=== PATIENT | male | born 1955 | race Caucasian/White ===

== ENCOUNTER 2016-06-06 18:18 | Inpatient (IN) | payer OTHER ==
[2016-06-06 19:09] VITALS: BMI 28.4
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
[2016-06-06] MEDS ORDERED: MAGNESIUM HYDROX 2400MG/30ML ORAL SUSPENSION 30 ML CUP PO PRN (19:39)
[2016-06-06] MEDS ORDERED: METHADONE HCL 10 MG TABLET (FOR DETOX USE ONLY) PO ONE ×2 (19:39→23:00)
[2016-06-06] MEDS ORDERED: MAG HYDROX/AL HYDROX/SIMETH 30 ML UNIT-DOSE CUP PO PRN (19:39)
[2016-06-06] MEDS ORDERED: ACETAMINOPHEN 325 MG TABLET (FP) PO PRN (19:39)
[2016-06-06] MEDS ORDERED: LOPERAMIDE HCL 2 MG CAPSULE PO PRN (19:39)
[2016-06-06] MEDS ORDERED: MENTHOL/PHENOL 1 EACH UD MM PRN (19:39)
[2016-06-06] MEDS ORDERED: IBUPROFEN 400 MG TABLET (FP) PO PRN (19:39)
[2016-06-06] MEDS ORDERED: chlordiazePOXIDE HCL 25 MG CAPSULE PO PRN (19:39)
[2016-06-06] MEDS ORDERED: chlordiazePOXIDE HCL 25 MG CAPSULE PO ONE (19:39)
[2016-06-06] MEDS ORDERED: MAGNESIUM CITRATE 300 ML BOTTLE PO PRN (19:39)
[2016-06-06] MEDS ORDERED: guaiFENesin/D-METHORPHAN HB 10 ML UNIT-DOSE CUPS PO PRN (19:39)
[2016-06-06] MEDS: RANITIDINE HCL 150 MG TABLET (FP) PO SCH (21:34)
[2016-06-06] MEDS: THIAMINE HCL 100 MG TABLET (FP) PO SCH (21:39)
[2016-06-06] MEDS: chlordiazePOXIDE HCL 25 MG CAPSULE PO SCH (22:45)
[2016-06-07] MEDS: chlordiazePOXIDE HCL 25 MG CAPSULE PO SCH ×4 (05:45→22:18)
--- NOTE | 2016-06-07 09:44 | EKG ---
Test Reason : Blood Pressure : / mmHG Vent. Rate : 086 BPM Atrial Rate : 086 BPM P-R Int : 124 ms QRS Dur : 088 ms QT Int : 408 ms P-R-T Axes : 050 061 054 degrees QTc Int : 488 ms NORMAL SINUS RHYTHM PROLONGED QT ABNORMAL ECG NO PREVIOUS ECGS AVAILABLE Confirmed by ASHLEY SANFORD MD ([id number]) on 06/07/2016 9:44:10 AM Referred By: Confirmed By:ASHLEY SANFORD MD
[2016-06-07] MEDS ORDERED: METHADONE HCL 10 MG TABLET (FOR DETOX USE ONLY) PO SCH (10:00)
[2016-06-07] MEDS: ASPIRIN 81 MG CHEWABLE TABLETS PO SCH (10:13)
[2016-06-07] MEDS: RANITIDINE HCL 150 MG TABLET (FP) PO SCH ×2 (10:13→22:18)
[2016-06-07] MEDS: PRENATAL VITAMINS W/ FOLIC ACID TABLET (FP) PO SCH (10:14)
[2016-06-07 10:18] LABS: MCH 30.6 pg (25.7-33.7); MCHC 33.1 g/dl (32.0-35.9); MEAN CELL VOLUME 92.5 fl (80-96); MEAN PLT VOLUME 8.5 fl (7.5-11.1); PLATELET COUNT 222 K/MM3 (134-434); RDW 14.4 % (11.9-15.9); WHITE BLOOD COUNT 6.4 K/mm3 (4.0-10.0)
[2016-06-07 10:37] LABS: ALBUMIN 3.2 g/dl (3.4-5.0); ANION GAP 11 (8-16); CALCIUM 8.4 mg/dL (8.5-10.1); CO2 27 mmol/L (21-32); CREATININE 0.7 mg/dL (0.7-1.3); GLUCOSE,RANDOM 99 mg/dL (74-106); SGOT/AST 39 U/L (15-37); SGPT/ALT 21 U/L (12-78)
[2016-06-07 10:39] LABS: ALK PHOS 78 U/L (45-117); BILIRUBIN,TOTAL 0.4 mg/dL (0.2-1.0); TOT PROT 6.3 g/dl (6.4-8.2)
[2016-06-07 12:27] LABS: HIV 1 & 2 AB NEGATIVE; HIV 1 AGp24 NEGATIVE
--- NOTE | 2016-06-07 13:18 | PN ---
S CIWA - CIWA Score Nausea/Vomitin-Mild Nausea/No Vomiting Muscle Tremors: 4-Moderate,w/Arms Extend Anxiety: 4-Mod. Anxious/Guarded Agitation: 4-Moderately Restless Paroxysmal Sweats: No Perspiration Orientation: 0-Oriented Tacttile Disturbances: 1-Very Mild Itch/Numbness Auditory Disturbances: 0-None Visual Disturbances: 0-None Headache: 2-Mild CIWA-Ar Total Score: 16 BHS COWS - Scale Resting Pulse: 1= [place] 81-100 Sweatin= Chills/Flushing Restless Observation: 3= Extraneous Movement Pupil Size: 0= Normal to Room Light Bone or Joint Aches: 2= Severe Diffuse Aches Runny Nose/ Eye Tearin= Runny Nose/Eyes GI Upset > 30mins: 2= Nausea/Diarrhea Tremor Observation of Outstretched Hands: 2= Slight Tremor Visible Yawning Observation: 0= None Anxiety or Irritability: 2=Irritable/Anxious Goose Flesh Skin: 0=Smooth Skin COWS Score: 15 S Progress Note (SOAP) Subjective: Nausea, sweating, anxious, interrupted sleep, tremor Objective: 06/07/16 13:19 Last Vital Signs Temp Pulse Resp BP Pulse Ox 96.9 F L 81 18 97/69 06/07/16 13:02 06/07/16 13:02 06/07/16 13:02 06/07/16 13:02 Laboratory Tests 06/07/16 06/07/16 06/07/16 07:20 07:20 07:20 WBC 6.4 RBC 4.23 Hgb 13.0 Hct 39.1 MCV 92.5 MCHC 33.1 RDW 14.4 Plt Count 222 MPV 8.5 Sodium 140 Potassium 3.9 Chloride 102 Carbon Dioxide 27 Anion Gap 11 BUN 15 Creatinine 0.7 D Creat Clearance w eGFR > 60 Random Glucose 99 Calcium 8.4 L Total Bilirubin 0.4 AST 39 H D ALT 21 Alkaline Phosphatase 78 D Total Protein 6.3 L Albumin 3.2 L RPR Titer Nonreactive HIV 1&2 Antibody Screen HIV P24 Antigen 06/07/16 07:20 WBC RBC Hgb Hct MCV MCHC RDW Plt Count MPV Sodium Potassium Chloride Carbon Dioxide Anion Gap BUN Creatinine Creat Clearance w eGFR Random Glucose Calcium Total Bilirubin AST ALT Alkaline Phosphatase Total Protein Albumin RPR Titer HIV 1&2 Antibody Screen Negative HIV P24 Antigen Negative Labs noted Assessment: 06/07/16 13:20 Withdrawal symptoms Plan: Continue detox
[2016-06-07] MEDS: THIAMINE HCL 100 MG TABLET (FP) PO SCH (22:17)
[2016-06-07 22:53] LABS: URINE APPEARANCE CLEAR; URINE BILIRUBIN NEGATIVE (NEGATIVE); URINE BLOOD NEGATIVE (NEGATIVE); URINE COLOR YELLOW; URINE GLUCOSE (UA) NEGATIVE (NEGATIVE); URINE KETONE NEGATIVE (NEGATIVE); URINE LEUK ESTERASE NEGATIVE (NEGATIVE); URINE NITRITE NEGATIVE (NEGATIVE); URINE PROTEIN NEGATIVE (NEGATIVE); URINE UROBILINOGEN NEGATIVE E.U./dl (0.2-1.0)
[2016-06-08] MEDS: chlordiazePOXIDE HCL 25 MG CAPSULE PO SCH ×3 (05:32→16:51)
--- NOTE | 2016-06-08 09:48 | PN ---
[facility] CIWA - CIWA Score Nausea/Vomitin Muscle Tremors: 3 Anxiety: 4-Mod. Anxious/Guarded Agitation: 4-Moderately Restless Paroxysmal Sweats: 3 Orientation: 0-Oriented Tacttile Disturbances: 1-Very Mild Itch/Numbness Auditory Disturbances: 0-None Visual Disturbances: 0-None Headache: 0-None Present CIWA-Ar Total Score: 17 BHS COWS - Scale Resting Pulse: 1= [place] 81-100 Sweatin=Flushed/Facial Moisture Restless Observation: 1= Difficult to Sit Still Pupil Size: 0= Normal to Room Light Bone or Joint Aches: 2= Severe Diffuse Aches Runny Nose/ Eye Tearin= Runny Nose/Eyes GI Upset > 30mins: 2= Nausea/Diarrhea Tremor Observation of Outstretched Hands: 2= Slight Tremor Visible Yawning Observation: 1= 1-2x During Session Anxiety or Irritability: 2=Irritable/Anxious Goose Flesh Skin: 0=Smooth Skin COWS Score: 15 [facility] Progress Note (SOAP) Subjective: anxiety,tremors,sweating,interrupted sleep,muscle aches/spasm Objective: 06/08/16 09:47 Vital Signs - 8 hr 06/08/16 06/08/16 03:42 06:07 Temperature 97.1 F L Pulse Rate 81 Respiratory 18 18 Rate Blood Pressure 101/68 Laboratory Tests 06/07/16 06/07/16 06/07/16 07:20 07:20 07:20 WBC 6.4 RBC 4.23 Hgb 13.0 Hct 39.1 MCV 92.5 MCHC 33.1 RDW 14.4 Plt Count 222 MPV 8.5 Sodium 140 Potassium 3.9 Chloride 102 Carbon Dioxide 27 Anion Gap 11 BUN 15 Creatinine 0.7 D Creat Clearance w eGFR > 60 Random Glucose 99 Calcium 8.4 L Total Bilirubin 0.4 AST 39 H D ALT 21 Alkaline Phosphatase 78 D Total Protein 6.3 L Albumin 3.2 L Urine Color Urine Appearance Urine pH Ur Specific [place] Urine Protein Urine Glucose (UA) Urine Ketones Urine Blood Urine Nitrite Urine Bilirubin Urine Urobilinogen Ur Leukocyte Esterase RPR Titer Nonreactive HIV 1&2 Antibody Screen HIV P24 Antigen 06/07/16 06/07/16 07:20 18:20 WBC RBC Hgb Hct MCV MCHC RDW Plt Count MPV Sodium Potassium Chloride Carbon Dioxide Anion Gap BUN Creatinine Creat Clearance w eGFR Random Glucose Calcium Total Bilirubin AST ALT Alkaline Phosphatase Total Protein Albumin Urine Color Yellow Urine Appearance Clear Urine pH 6.0 Ur Specific [place] 1.024 Urine Protein Negative Urine Glucose (UA) Negative Urine Ketones Negative Urine Blood Negative Urine Nitrite Negative Urine Bilirubin Negative Urine Urobilinogen Negative Ur Leukocyte Esterase Negative RPR Titer HIV 1&2 Antibody Screen Negative HIV P24 Antigen Negative labs noted Assessment: 06/08/16 09:47 withdrawal sx. Plan: continue detox
[2016-06-08] MEDS ORDERED: CYCLOBENZAPRINE HCL 10 MG TABLET (FP) PO ONE (10:10)
[2016-06-08] MEDS: METHADONE HCL 5 MG TABLET (FOR DETOX USE ONLY) PO SCH (10:12)
[2016-06-08] MEDS: PRENATAL VITAMINS W/ FOLIC ACID TABLET (FP) PO SCH (10:12)
[2016-06-08] MEDS: ASPIRIN 81 MG CHEWABLE TABLETS PO SCH (10:12)
[2016-06-08] MEDS: RANITIDINE HCL 150 MG TABLET (FP) PO SCH ×2 (10:12→22:15)
[2016-06-08] MEDS: NAPROXEN 500 MG TABLET (FP) PO SCH ×2 (10:49→22:15)
[2016-06-08] MEDS: CYCLOBENZAPRINE HCL 10 MG TABLET (FP) PO SCH ×2 (14:16→22:15)
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
[2016-06-08] MEDS: chlordiazePOXIDE 5 MG CAPSULE PO SCH (22:14)
[2016-06-08] MEDS: THIAMINE HCL 100 MG TABLET (FP) PO SCH (22:14)
[2016-06-08] MEDS: ZOLPIDEM TARTRATE 10 MG TABLET (PARK CARE ONLY) PO PRN (22:15)
[2016-06-09] MEDS: CYCLOBENZAPRINE HCL 10 MG TABLET (FP) PO SCH ×3 (05:34→22:17)
[2016-06-09] MEDS: chlordiazePOXIDE 5 MG CAPSULE PO SCH ×3 (05:34→17:12)
[2016-06-09] MEDS: ASPIRIN 81 MG CHEWABLE TABLETS PO SCH (10:06)
[2016-06-09] MEDS: METHADONE HCL 5 MG TABLET (FOR DETOX USE ONLY) PO SCH (10:06)
[2016-06-09] MEDS: NAPROXEN 500 MG TABLET (FP) PO SCH ×2 (10:06→22:18)
[2016-06-09] MEDS: RANITIDINE HCL 150 MG TABLET (FP) PO SCH ×2 (10:06→22:17)
[2016-06-09] MEDS: PRENATAL VITAMINS W/ FOLIC ACID TABLET (FP) PO SCH (10:06)
--- NOTE | 2016-06-09 10:37 | PN ---
BHS Progress Note (SOAP) Subjective: sweating,interrupted sleep,restless Objective: 06/09/16 10:36 Vital Signs - 8 hr 06/09/16 06:19 Temperature 96.7 F L Pulse Rate 73 Respiratory 18 Rate Blood Pressure 116/73 Laboratory Last Values WBC 6.4 K/mm3 (4.0-10.0) 06/07/16 07:20 RBC 4.23 M/mm3 (4.00-5.60) 06/07/16 07:20 Hgb 13.0 GM/dL (11.7-16.9) 06/07/16 07:20 Hct 39.1 % (35.4-49) 06/07/16 07:20 MCV 92.5 fl (80-96) 06/07/16 07:20 MCHC 33.1 g/dl (32.0-35.9) 06/07/16 07:20 RDW 14.4 % (11.9-15.9) 06/07/16 07:20 Plt Count 222 K/MM3 (134-434) 06/07/16 07:20 MPV 8.5 fl (7.5-11.1) 06/07/16 07:20 Sodium 140 mmol/L (136-145) 06/07/16 07:20 Potassium 3.9 mmol/L (3.5-5.1) 06/07/16 07:20 Chloride 102 mmol/L (98-107) 06/07/16 07:20 Carbon Dioxide 27 mmol/L (21-32) 06/07/16 07:20 Anion Gap 11 (8-16) 06/07/16 07:20 BUN 15 mg/dL (7-18) 06/07/16 07:20 Creatinine 0.7 mg/dL (0.7-1.3) D 06/07/16 07:20 Creat Clearance w eGFR > 60 (>60) 06/07/16 07:20 Random Glucose 99 mg/dL (74-106) 06/07/16 07:20 Calcium 8.4 mg/dL (8.5-10.1) L 06/07/16 07:20 Total Bilirubin 0.4 mg/dL (0.2-1.0) 06/07/16 07:20 AST 39 U/L (15-37) H D 06/07/16 07:20 ALT 21 U/L (12-78) 06/07/16 07:20 Alkaline Phosphatase 78 U/L (45-117) D 06/07/16 07:20 Total Protein 6.3 g/dl (6.4-8.2) L 06/07/16 07:20 Albumin 3.2 g/dl (3.4-5.0) L 06/07/16 07:20 Urine Color Yellow 06/07/16 18:20 Urine Appearance Clear 06/07/16 18:20 Urine pH 6.0 (5.0-8.0) 06/07/16 18:20 Ur Specific [place] 1.024 (1.001-1.035) 06/07/16 18:20 Urine Protein Negative (NEGATIVE) 06/07/16 18:20 Urine Glucose (UA) Negative (NEGATIVE) 06/07/16 18:20 Urine Ketones Negative (NEGATIVE) 06/07/16 18:20 Urine Blood Negative (NEGATIVE) 06/07/16 18:20 Urine Nitrite Negative (NEGATIVE) 06/07/16 18:20 Urine Bilirubin Negative (NEGATIVE) 06/07/16 18:20 Urine Urobilinogen Negative E.U./dl (0.2-1.0) 06/07/16 18:20 Ur Leukocyte Esterase Negative (NEGATIVE) 06/07/16 18:20 RPR Titer Nonreactive (NONREACTIVE) 06/07/16 07:20 HIV 1&2 Antibody Screen Negative 06/07/16 07:20 HIV P24 Antigen Negative 06/07/16 07:20 labs noted Assessment: 06/09/16 10:37 withdrawal sx. Plan: continue detox
[2016-06-09] MEDS: hydrOXYzine PAMOATE 50 MG CAPSULE (FP) PO PRN ×2 (12:06→17:14)
[2016-06-09] MEDS: chlordiazePOXIDE HCL 10 MG CAPSULE PO SCH (22:17)
[2016-06-09] MEDS: ZOLPIDEM TARTRATE 10 MG TABLET (PARK CARE ONLY) PO PRN (22:20)
[2016-06-09] MEDS: THIAMINE HCL 100 MG TABLET (FP) PO SCH (22:21)
[2016-06-10] MEDS: CYCLOBENZAPRINE HCL 10 MG TABLET (FP) PO SCH ×3 (05:32→22:14)
[2016-06-10] MEDS: chlordiazePOXIDE HCL 10 MG CAPSULE PO SCH ×3 (05:32→17:55)
[2016-06-10] MEDS ORDERED: METHADONE HCL 10 MG TABLET (FOR DETOX USE ONLY) PO SCH (10:00)
[2016-06-10] MEDS: PRENATAL VITAMINS W/ FOLIC ACID TABLET (FP) PO SCH (10:09)
[2016-06-10] MEDS: RANITIDINE HCL 150 MG TABLET (FP) PO SCH ×2 (10:09→22:16)
[2016-06-10] MEDS: NAPROXEN 500 MG TABLET (FP) PO SCH ×2 (10:10→22:14)
[2016-06-10] MEDS: ASPIRIN 81 MG CHEWABLE TABLETS PO SCH (10:10)
--- NOTE | 2016-06-10 15:39 | PN ---
BHS Progress Note (SOAP) Subjective: anxiety,tremors,sweating,interrupted sleep,restless Objective: 06/10/16 15:37 Vital Signs - 8 hr 06/10/16 06/10/16 09:41 14:51 Temperature 97.3 F L 96.4 F L Pulse Rate 97 H 82 Respiratory 20 18 Rate Blood Pressure 98/69 101/67 Laboratory Last Values WBC 6.4 K/mm3 (4.0-10.0) 06/07/16 07:20 RBC 4.23 M/mm3 (4.00-5.60) 06/07/16 07:20 Hgb 13.0 GM/dL (11.7-16.9) 06/07/16 07:20 Hct 39.1 % (35.4-49) 06/07/16 07:20 MCV 92.5 fl (80-96) 06/07/16 07:20 MCHC 33.1 g/dl (32.0-35.9) 06/07/16 07:20 RDW 14.4 % (11.9-15.9) 06/07/16 07:20 Plt Count 222 K/MM3 (134-434) 06/07/16 07:20 MPV 8.5 fl (7.5-11.1) 06/07/16 07:20 Sodium 140 mmol/L (136-145) 06/07/16 07:20 Potassium 3.9 mmol/L (3.5-5.1) 06/07/16 07:20 Chloride 102 mmol/L (98-107) 06/07/16 07:20 Carbon Dioxide 27 mmol/L (21-32) 06/07/16 07:20 Anion Gap 11 (8-16) 06/07/16 07:20 BUN 15 mg/dL (7-18) 06/07/16 07:20 Creatinine 0.7 mg/dL (0.7-1.3) D 06/07/16 07:20 Creat Clearance w eGFR > 60 (>60) 06/07/16 07:20 Random Glucose 99 mg/dL (74-106) 06/07/16 07:20 Calcium 8.4 mg/dL (8.5-10.1) L 06/07/16 07:20 Total Bilirubin 0.4 mg/dL (0.2-1.0) 06/07/16 07:20 AST 39 U/L (15-37) H D 06/07/16 07:20 ALT 21 U/L (12-78) 06/07/16 07:20 Alkaline Phosphatase 78 U/L (45-117) D 06/07/16 07:20 Total Protein 6.3 g/dl (6.4-8.2) L 06/07/16 07:20 Albumin 3.2 g/dl (3.4-5.0) L 06/07/16 07:20 Urine Color Yellow 06/07/16 18:20 Urine Appearance Clear 06/07/16 18:20 Urine pH 6.0 (5.0-8.0) 06/07/16 18:20 Ur Specific [place] 1.024 (1.001-1.035) 06/07/16 18:20 Urine Protein Negative (NEGATIVE) 06/07/16 18:20 Urine Glucose (UA) Negative (NEGATIVE) 06/07/16 18:20 Urine Ketones Negative (NEGATIVE) 06/07/16 18:20 Urine Blood Negative (NEGATIVE) 06/07/16 18:20 Urine Nitrite Negative (NEGATIVE) 06/07/16 18:20 Urine Bilirubin Negative (NEGATIVE) 06/07/16 18:20 Urine Urobilinogen Negative E.U./dl (0.2-1.0) 06/07/16 18:20 Ur Leukocyte Esterase Negative (NEGATIVE) 06/07/16 18:20 RPR Titer Nonreactive (NONREACTIVE) 06/07/16 07:20 HIV 1&2 Antibody Screen Negative 06/07/16 07:20 HIV P24 Antigen Negative 06/07/16 07:20 labs noted Assessment: 06/10/16 15:38 withdrawal sx. Plan: continue detox
[2016-06-10] MEDS: THIAMINE HCL 100 MG TABLET (FP) PO SCH (22:14)
[2016-06-10] MEDS: ZOLPIDEM TARTRATE 10 MG TABLET (PARK CARE ONLY) PO PRN (22:14)
[2016-06-11] MEDS: CYCLOBENZAPRINE HCL 10 MG TABLET (FP) PO SCH (05:32)
[2016-06-11] MEDS ORDERED: METHADONE HCL 5 MG TABLET (FOR DETOX USE ONLY) PO SCH (06:00)
[2016-06-11 06:07] VITALS: BP 98/68; PULSE 80; TEMP 97
[2016-06-11] MEDS: PRENATAL VITAMINS W/ FOLIC ACID TABLET (FP) PO SCH (10:10)
[2016-06-11] MEDS: RANITIDINE HCL 150 MG TABLET (FP) PO SCH (10:10)
[2016-06-11] MEDS: NAPROXEN 500 MG TABLET (FP) PO SCH (10:11)
[2016-06-11] MEDS: ASPIRIN 81 MG CHEWABLE TABLETS PO SCH (10:11)
--- NOTE | 2016-06-11 10:42 | DS ---
[facility] Detox Discharge Summary Admission Date: 06/06/16 Discharge Date: 06/11/16 - History Present History: Alcohol Dependence, Cocaine Dependence, Opioid Dependence Pertinent Past History: HEP C - Physical Exam Results Vital Signs: Vital Signs Temperature 97 F L 06/11/16 06:06 Pulse Rate 80 06/11/16 06:06 Respiratory Rate 16 06/11/16 06:06 Blood Pressure 98/68 06/11/16 06:06 O2 Sat by Pulse Oximetry (%) Pertinent Admission Physical Exam Findings: WITHDRAWAL SX. Laboratory Tests 06/07/16 06/07/16 06/07/16 07:20 07:20 07:20 WBC 6.4 RBC 4.23 Hgb 13.0 Hct 39.1 MCV 92.5 MCHC 33.1 RDW 14.4 Plt Count 222 MPV 8.5 Sodium 140 Potassium 3.9 Chloride 102 Carbon Dioxide 27 Anion Gap 11 BUN 15 Creatinine 0.7 D Creat Clearance w eGFR > 60 Random Glucose 99 Calcium 8.4 L Total Bilirubin 0.4 AST 39 H D ALT 21 Alkaline Phosphatase 78 D Total Protein 6.3 L Albumin 3.2 L Urine Color Urine Appearance Urine pH Ur Specific [place] Urine Protein Urine Glucose (UA) Urine Ketones Urine Blood Urine Nitrite Urine Bilirubin Urine Urobilinogen Ur Leukocyte Esterase RPR Titer Nonreactive HIV 1&2 Antibody Screen HIV P24 Antigen 06/07/16 06/07/16 07:20 18:20 WBC RBC Hgb Hct MCV MCHC RDW Plt Count MPV Sodium Potassium Chloride Carbon Dioxide Anion Gap BUN Creatinine Creat Clearance w eGFR Random Glucose Calcium Total Bilirubin AST ALT Alkaline Phosphatase Total Protein Albumin Urine Color Yellow Urine Appearance Clear Urine pH 6.0 Ur Specific [place] 1.024 Urine Protein Negative Urine Glucose (UA) Negative Urine Ketones Negative Urine Blood Negative Urine Nitrite Negative Urine Bilirubin Negative Urine Urobilinogen Negative Ur Leukocyte Esterase Negative RPR Titer HIV 1&2 Antibody Screen Negative HIV P24 Antigen Negative LABS NOTED - Treatment Hospital Course: Detox Protocol Followed, Detoxed Safely, Responded well, Discharged Condition Good, Rehab Referral Accepted - Medication Discharge Medications: Ambulatory Orders Aspirin [ASA -] 81 mg PO DAILY #30 tab.chew 12/30/15 Ranitidine [Zantac -] 150 mg PO DAILY #60 tablet 12/30/15 Trazodone HCl [Desyrel -] 50 mg PO HS #30 tablet 02/05/16 - Diagnosis (1) Alcohol dependence with uncomplicated withdrawal Current Visit: Yes Status: Acute (2) Cocaine dependence Current Visit: Yes Status: Acute Qualifiers: Substance use status: uncomplicated Qualified Code(s): F14.20 - Cocaine dependence, uncomplicated (3) Opioid dependence with withdrawal Current Visit: Yes Status: Acute (4) Nicotine dependence Current Visit: Yes Status: Acute Qualifiers: Nicotine product type: cigarettes Substance use status: uncomplicated Qualified Code(s): F17.210 - Nicotine dependence, cigarettes, uncomplicated (5) Substance induced mood disorder Current Visit: Yes Status: Acute (6) GERD (gastroesophageal reflux disease) Current Visit: Yes Status: Chronic Qualifiers: Esophagitis presence: without esophagitis Qualified Code(s): K21.9 - Gastro-esophageal reflux disease without esophagitis (7) Hepatitis C Current Visit: Yes Status: Chronic Qualifiers: Viral hepatitis chronicity: chronic Hepatic coma status: without hepatic coma Qualified Code(s): B18.2 - Chronic viral hepatitis C - AMA Did Patient Leave Against Medical Advice: No
== END 2016-06-11 13:04 | disposition other institution (70) | DRG 773 ==
LOC: YASAS 18:18 → Y3N 19:20
PROVIDERS: ADMIT Internal Medicine; ATTEND Internal Medicine
PROC: HZ2ZZZZ Detoxification Services for Substance Abuse Treatment (ICD-10-PCS; principal; 2016-06-11)
DX: F11.23 Opioid dependence with withdrawal (principal); F10.230 Alcohol dependence with withdrawal, uncomplicated; F14.20 Cocaine dependence, uncomplicated; F17.210 Nicotine dependence, cigarettes, uncomplicated; F19.24 Other psychoactive substance dependence with psychoactive substance-induced mood disorder; B18.2 Chronic viral hepatitis C; K21.9 Gastro-esophageal reflux disease without esophagitis; M54.5 Low back pain; G47.00 Insomnia, unspecified
CPT/HCPCS: 36415; 80053; 81003; 85027; 86593; 87389; 93005; 93010

== ENCOUNTER 2016-06-11 12:35 | Inpatient (IN) | payer OTHER ==
[2016-06-11] MEDS ORDERED: IBUPROFEN 400 MG TABLET (FP) PO PRN (13:00)
[2016-06-11] MEDS ORDERED: diphenhydrAMINE HCL 50 MG CAPSULE PO PRN (13:00)
[2016-06-11] MEDS ORDERED: guaiFENesin/D-METHORPHAN HB 10 ML UNIT-DOSE CUPS PO PRN (13:00)
[2016-06-11] MEDS ORDERED: LOPERAMIDE HCL 2 MG CAPSULE PO PRN (13:00)
[2016-06-11] MEDS ORDERED: MAGNESIUM HYDROX 2400MG/30ML ORAL SUSPENSION 30 ML CUP PO PRN (13:00)
[2016-06-11] MEDS ORDERED: MAG HYDROX/AL HYDROX/SIMETH 30 ML UNIT-DOSE CUP PO PRN (13:00)
[2016-06-11] MEDS ORDERED: MENTHOL/PHENOL 1 EACH UD MM PRN (13:00)
[2016-06-11] MEDS ORDERED: MAGNESIUM CITRATE 300 ML BOTTLE PO PRN (13:00)
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
--- NOTE | 2016-06-11 16:20 | HP ---
[facility] Rehab Assess/Revision - Admission History Admitted to Rehab from: [facility] Date of Admission to Rehab: 06/11/16 - Findings Detox History & Physical reviewed: Yes Concur with findings: Yes Comments/Additional Findings: transferred from detox to rehab admission as per protocol
[2016-06-11] MEDS: THIAMINE HCL 100 MG TABLET (FP) PO SCH (21:26)
[2016-06-11] MEDS: hydrOXYzine PAMOATE 50 MG CAPSULE (FP) PO PRN (21:27)
[2016-06-12] MEDS ORDERED: RANITIDINE HCL 150 MG TABLET (FP) PO SCH (10:00)
[2016-06-12] MEDS: PRENATAL VITAMINS W/ FOLIC ACID TABLET (FP) PO SCH (10:00)
[2016-06-12] MEDS: ASPIRIN 81 MG CHEWABLE TABLETS PO SCH (10:01)
[2016-06-12] MEDS: PANTOPRAZOLE 40 MG TABLET (FP) PO SCH (12:02)
[2016-06-12] MEDS: NAPROXEN 500 MG TABLET (FP) PO SCH ×2 (12:04→21:29)
[2016-06-12] MEDS: hydrOXYzine PAMOATE 50 MG CAPSULE (FP) PO PRN ×2 (12:04→21:31)
[2016-06-12] MEDS: THIAMINE HCL 100 MG TABLET (FP) PO SCH (21:29)
[2016-06-13] MEDS: PANTOPRAZOLE 40 MG TABLET (FP) PO SCH (09:43)
[2016-06-13] MEDS: ASPIRIN 81 MG CHEWABLE TABLETS PO SCH (09:43)
[2016-06-13] MEDS: NAPROXEN 500 MG TABLET (FP) PO SCH ×2 (09:43→21:22)
[2016-06-13] MEDS: PRENATAL VITAMINS W/ FOLIC ACID TABLET (FP) PO SCH (09:43)
[2016-06-13] MEDS: hydrOXYzine PAMOATE 50 MG CAPSULE (FP) PO PRN ×2 (09:45→21:23)
[2016-06-13] MEDS: P-EPHED 60MG/TRIPROLIDI 2.5MG TABLET PO PRN ×2 (13:14→20:05)
[2016-06-13] MEDS: THIAMINE HCL 100 MG TABLET (FP) PO SCH (21:22)
[2016-06-14] MEDS: P-EPHED 60MG/TRIPROLIDI 2.5MG TABLET PO PRN ×3 (04:25→21:38)
[2016-06-14] MEDS: ACETAMINOPHEN 325 MG TABLET (FP) PO PRN (04:25)
[2016-06-14] MEDS: PRENATAL VITAMINS W/ FOLIC ACID TABLET (FP) PO SCH (10:09)
[2016-06-14] MEDS: PANTOPRAZOLE 40 MG TABLET (FP) PO SCH (10:09)
[2016-06-14] MEDS: NAPROXEN 500 MG TABLET (FP) PO SCH ×2 (10:09→21:36)
[2016-06-14] MEDS: ASPIRIN 81 MG CHEWABLE TABLETS PO SCH (10:09)
[2016-06-14] MEDS: hydrOXYzine PAMOATE 50 MG CAPSULE (FP) PO PRN ×2 (10:13→21:38)
[2016-06-14] MEDS: THIAMINE HCL 100 MG TABLET (FP) PO SCH (21:37)
[2016-06-15] MEDS: ASPIRIN 81 MG CHEWABLE TABLETS PO SCH (10:01)
[2016-06-15] MEDS: NAPROXEN 500 MG TABLET (FP) PO SCH ×2 (10:01→22:12)
[2016-06-15] MEDS: PANTOPRAZOLE 40 MG TABLET (FP) PO SCH (10:01)
[2016-06-15] MEDS: PRENATAL VITAMINS W/ FOLIC ACID TABLET (FP) PO SCH (10:01)
[2016-06-15] MEDS: P-EPHED 60MG/TRIPROLIDI 2.5MG TABLET PO PRN ×2 (10:03→17:46)
[2016-06-15] MEDS: hydrOXYzine PAMOATE 50 MG CAPSULE (FP) PO PRN ×2 (10:03→17:46)
[2016-06-15] MEDS ORDERED: CYCLOBENZAPRINE HCL 10 MG TABLET (FP) PO PRN (12:33)
[2016-06-15] MEDS: THIAMINE HCL 100 MG TABLET (FP) PO SCH (22:11)
[2016-06-16] MEDS: P-EPHED 60MG/TRIPROLIDI 2.5MG TABLET PO PRN ×2 (04:31→15:09)
[2016-06-16] MEDS: PANTOPRAZOLE 40 MG TABLET (FP) PO SCH (10:02)
[2016-06-16] MEDS: PRENATAL VITAMINS W/ FOLIC ACID TABLET (FP) PO SCH (10:02)
[2016-06-16] MEDS: ASPIRIN 81 MG CHEWABLE TABLETS PO SCH (10:02)
[2016-06-16] MEDS: NAPROXEN 500 MG TABLET (FP) PO SCH ×2 (10:03→22:00)
[2016-06-16] MEDS: ACETAMINOPHEN 325 MG TABLET (FP) PO PRN (10:04)
--- NOTE | 2016-06-16 15:09 | PN ---
Psychiatric Progress Note Vital Signs: Vital Signs Period Temp Pulse Resp BP Sys/Anne Pulse Ox Last 24 Hr 97.3 F 93 18-18 122/89 Date of Session: 06/16/16 Chief Complaint:: insomnia HPI: Patient is addressing Alcohol dependence, Opioid dependence comorbid Substance or medication-induced sleep disorder, insomnia type ROS: Hep C, GERD. Current Medications: Active Medications Generic Name Dose Route Start Last Admin Trade Name Freq PRN Reason Stop Dose Admin Acetaminophen 650 mg 06/11/16 13:00 06/16/16 10:04 Tylenol - PO 650 mg Q4H PRN Administration FEVER OR PAIN Al Hydroxide/Mg Hydroxide 30 ml 06/11/16 13:00 Mylanta Oral Suspension - PO Q6H PRN DYSPEPSIA Aspirin 81 mg 06/12/16 10:00 06/16/16 10:02 Asa - PO 81 mg DAILY ABILIO Administration Cyclobenzaprine HCl 10 mg 06/15/16 12:33 Flexeril - PO TID PRN MUSCLE SPASMS Eucalyptus/Menthol/Phenol/Sorbitol 1 each 06/11/16 13:00 Cepastat Lozenge - MM Q4H PRN SORE THROAT Guaifenesin 10 ml 06/11/16 13:00 Robitussin Dm - PO Q6H PRN COUGH Hydroxyzine Pamoate 50 mg 06/11/16 13:00 06/15/16 17:46 Vistaril - PO 50 mg Q4H PRN Administration AGITATION Loperamide HCl 4 mg 06/11/16 13:00 Imodium - PO Q6H PRN DIARRHEA Magnesium Hydroxide 30 ml 06/11/16 13:00 Milk Of Magnesia - PO DAILY PRN CONSTIPATION Naproxen 500 mg 06/12/16 11:45 06/16/16 10:03 Naprosyn - PO Not Given BID ABILIO Pantoprazole Sodium 40 mg 06/12/16 11:30 06/16/16 10:02 Protonix - PO 40 mg DAILY ABILIO Administration Multivit/Folic Acid/Iron 1 tab 06/12/16 10:00 06/16/16 10:02 Vitamins (Sjr) - PO 1 tab DAILY ABILIO Administration Pseudoephedrine/Triprolidine 1 combo 06/11/16 13:00 06/16/16 04:31 Actifed - PO 1 combo TID PRN Administration NASAL CONGESTION Thiamine HCl 100 mg 06/11/16 22:00 06/15/16 22:11 Vitamin B1 - PO 100 mg HS ABILIO Administration Medication(s) Change(s): Trazodone 50 mg po hs Current Side Effect: No Lab tests ordered: No Lab tests reviewed: Yes Provider note:: Patient reports he has difficulty at nights to fall and maintain sleep, he reporrts he rather to take Trazodone 50 mg , will add continue to monitor progress. Total face to face time:: 15 Mental Status Exam - Mental Status Exam Alert and Oriented to: Time, Place, Person Cognitive Function: Good Patient Appearance: Well Groomed Mood: Sad, Anxious Affect: Appropriate, Mood Congruent Patient Behavior: Appropriate, Cooperative Speech Pattern: Clear, Appropriate Voice Loudness: Normal Thought Process: Intact, Goal Oriented Thought Disorder: Not Present Hallucinations: Denies Suicidal Ideation: Denies Homicidal Ideation: Denies Insight/Judgement: Fair Sleep: Poorly, Difficulty falling asleep Appetite: Fair Muscle strength/Tone: Normal Gait/Station: Normal Psychiatric Treatment Plan - Problem List (1) Alcohol dependence Current Visit: Yes Qualifiers: Substance use status: uncomplicated Qualified Code(s): F10.20 - Alcohol dependence, uncomplicated (2) Opioid dependence Current Visit: Yes Qualifiers: Substance use status: uncomplicated Qualified Code(s): F11.20 - Opioid dependence, uncomplicated (3) Substance or medication-induced sleep disorder, insomnia type Current Visit: Yes
[2016-06-16] MEDS: traZODone HCL 50 MG TABLET (FP) PO SCH (22:00)
[2016-06-16] MEDS: THIAMINE HCL 100 MG TABLET (FP) PO SCH (22:00)
[2016-06-17] MEDS: PANTOPRAZOLE 40 MG TABLET (FP) PO SCH (10:01)
[2016-06-17] MEDS: PRENATAL VITAMINS W/ FOLIC ACID TABLET (FP) PO SCH (10:01)
[2016-06-17] MEDS: NAPROXEN 500 MG TABLET (FP) PO SCH ×2 (10:02→21:32)
[2016-06-17] MEDS: ASPIRIN 81 MG CHEWABLE TABLETS PO SCH (10:03)
[2016-06-17] MEDS: THIAMINE HCL 100 MG TABLET (FP) PO SCH (21:32)
[2016-06-17] MEDS: traZODone HCL 50 MG TABLET (FP) PO SCH (21:32)
[2016-06-18] MEDS: NAPROXEN 500 MG TABLET (FP) PO SCH ×2 (09:33→21:41)
[2016-06-18] MEDS: PRENATAL VITAMINS W/ FOLIC ACID TABLET (FP) PO SCH (09:33)
[2016-06-18] MEDS: PANTOPRAZOLE 40 MG TABLET (FP) PO SCH (09:33)
[2016-06-18] MEDS: ASPIRIN 81 MG CHEWABLE TABLETS PO SCH (09:33)
[2016-06-18] MEDS: traZODone HCL 50 MG TABLET (FP) PO SCH (21:41)
[2016-06-18] MEDS: THIAMINE HCL 100 MG TABLET (FP) PO SCH (21:41)
[2016-06-19] MEDS: P-EPHED 60MG/TRIPROLIDI 2.5MG TABLET PO PRN ×2 (04:12→15:57)
[2016-06-19] MEDS: NAPROXEN 500 MG TABLET (FP) PO SCH ×2 (09:43→21:02)
[2016-06-19] MEDS: PRENATAL VITAMINS W/ FOLIC ACID TABLET (FP) PO SCH (09:43)
[2016-06-19] MEDS: ASPIRIN 81 MG CHEWABLE TABLETS PO SCH (09:43)
[2016-06-19] MEDS: PANTOPRAZOLE 40 MG TABLET (FP) PO SCH (09:43)
--- NOTE | 2016-06-19 15:10 | PN ---
Psychiatric Progress Note Vital Signs: Vital Signs Period Temp Pulse Resp BP Sys/Anne Pulse Ox Last 24 Hr 97.0 F 73 16-18 129/86 Date of Session: 06/19/16 Chief Complaint:: "anxious" HPI: Patient is addressing Alcohol dependence, Opioid dependence comorbid Substance or medication-induced sleep disorder, insomnia type ROS: Hep C, GERD medically managed. Current Medications: Active Medications Generic Name Dose Route Start Last Admin Trade Name Freq PRN Reason Stop Dose Admin Acetaminophen 650 mg 06/11/16 13:00 06/16/16 10:04 Tylenol - PO 650 mg Q4H PRN Administration FEVER OR PAIN Al Hydroxide/Mg Hydroxide 30 ml 06/11/16 13:00 Mylanta Oral Suspension - PO Q6H PRN DYSPEPSIA Aspirin 81 mg 06/12/16 10:00 06/19/16 09:43 Asa - PO 81 mg DAILY ABILIO Administration Cyclobenzaprine HCl 10 mg 06/15/16 12:33 Flexeril - PO TID PRN MUSCLE SPASMS Eucalyptus/Menthol/Phenol/Sorbitol 1 each 06/11/16 13:00 Cepastat Lozenge - MM Q4H PRN SORE THROAT Guaifenesin 10 ml 06/11/16 13:00 Robitussin Dm - PO Q6H PRN COUGH Hydroxyzine Pamoate 50 mg 06/11/16 13:00 06/15/16 17:46 Vistaril - PO 50 mg Q4H PRN Administration AGITATION Loperamide HCl 4 mg 06/11/16 13:00 Imodium - PO Q6H PRN DIARRHEA Magnesium Hydroxide 30 ml 06/11/16 13:00 Milk Of Magnesia - PO DAILY PRN CONSTIPATION Naproxen 500 mg 06/12/16 11:45 06/19/16 09:43 Naprosyn - PO 500 mg BID ABILIO Administration Pantoprazole Sodium 40 mg 06/12/16 11:30 06/19/16 09:43 Protonix - PO 40 mg DAILY ABILIO Administration Multivit/Folic Acid/Iron 1 tab 06/12/16 10:00 06/19/16 09:43 Vitamins (Sjr) - PO 1 tab DAILY ABILIO Administration Pseudoephedrine/Triprolidine 1 combo 06/11/16 13:00 06/19/16 04:12 Actifed - PO 1 combo TID PRN Administration NASAL CONGESTION Thiamine HCl 100 mg 06/11/16 22:00 06/18/16 21:41 Vitamin B1 - PO 100 mg HS ABILIO Administration Trazodone HCl 50 mg 06/16/16 22:00 06/18/16 21:41 Desyrel - PO 50 mg HS ABILIO Administration Medication(s) Change(s): add Neurontin 100 mg po tid. Current Side Effect: No Lab tests ordered: No Lab tests reviewed: Yes Provider note:: Patient reports has kiley feeling anxious and having mood swings, reports in he past had a good responce to Neuronint and wants to restart, will add 100 mg po tid, adjust medications as needed. Total face to face time:: 15 Mental Status Exam - Mental Status Exam Alert and Oriented to: Time, Place, Person Cognitive Function: Grossly Intact Patient Appearance: Well Groomed Mood: Sad, Anxious Affect: Appropriate, Mood Congruent Patient Behavior: Appropriate Speech Pattern: Clear, Appropriate Voice Loudness: Normal Thought Process: Goal Oriented Thought Disorder: Not Present Hallucinations: Denies Suicidal Ideation: Denies Homicidal Ideation: Denies Insight/Judgement: Fair Sleep: Fair Appetite: Fair Muscle strength/Tone: Normal Gait/Station: Normal Psychiatric Treatment Plan - Problem List (1) Alcohol dependence Current Visit: Yes Qualifiers: Substance use status: uncomplicated Qualified Code(s): F10.20 - Alcohol dependence, uncomplicated (2) Opioid dependence Current Visit: Yes Qualifiers: Substance use status: uncomplicated Qualified Code(s): F11.20 - Opioid dependence, uncomplicated (3) Substance or medication-induced sleep disorder, insomnia type Current Visit: Yes
[2016-06-19] MEDS: traZODone HCL 50 MG TABLET (FP) PO SCH (21:02)
[2016-06-19] MEDS: GABAPENTIN 100 MG CAPSULE (FP) PO SCH (21:02)
[2016-06-19] MEDS: THIAMINE HCL 100 MG TABLET (FP) PO SCH (21:02)
[2016-06-20] MEDS: GABAPENTIN 100 MG CAPSULE (FP) PO SCH ×3 (06:25→21:12)
[2016-06-20] MEDS: PRENATAL VITAMINS W/ FOLIC ACID TABLET (FP) PO SCH (09:51)
[2016-06-20] MEDS: PANTOPRAZOLE 40 MG TABLET (FP) PO SCH (09:51)
[2016-06-20] MEDS: NAPROXEN 500 MG TABLET (FP) PO SCH ×2 (09:51→21:12)
[2016-06-20] MEDS: ASPIRIN 81 MG CHEWABLE TABLETS PO SCH (09:51)
[2016-06-20] MEDS: traZODone HCL 50 MG TABLET (FP) PO SCH (21:12)
[2016-06-20] MEDS: THIAMINE HCL 100 MG TABLET (FP) PO SCH (21:13)
[2016-06-21] MEDS: GABAPENTIN 100 MG CAPSULE (FP) PO SCH ×3 (06:43→21:13)
[2016-06-21] MEDS: ASPIRIN 81 MG CHEWABLE TABLETS PO SCH (09:50)
[2016-06-21] MEDS: PRENATAL VITAMINS W/ FOLIC ACID TABLET (FP) PO SCH (09:50)
[2016-06-21] MEDS: NAPROXEN 500 MG TABLET (FP) PO SCH ×2 (09:50→21:13)
[2016-06-21] MEDS: PANTOPRAZOLE 40 MG TABLET (FP) PO SCH (09:50)
[2016-06-21] MEDS: traZODone HCL 50 MG TABLET (FP) PO SCH (21:13)
[2016-06-21] MEDS: THIAMINE HCL 100 MG TABLET (FP) PO SCH (21:14)
[2016-06-22] MEDS: GABAPENTIN 100 MG CAPSULE (FP) PO SCH ×3 (08:32→21:38)
[2016-06-22] MEDS: ASPIRIN 81 MG CHEWABLE TABLETS PO SCH (09:38)
[2016-06-22] MEDS: NAPROXEN 500 MG TABLET (FP) PO SCH ×2 (09:38→21:38)
[2016-06-22] MEDS: PRENATAL VITAMINS W/ FOLIC ACID TABLET (FP) PO SCH (09:38)
[2016-06-22] MEDS: PANTOPRAZOLE 40 MG TABLET (FP) PO SCH (09:38)
[2016-06-22] MEDS: THIAMINE HCL 100 MG TABLET (FP) PO SCH (21:38)
[2016-06-22] MEDS: traZODone HCL 50 MG TABLET (FP) PO SCH (21:38)
[2016-06-23] MEDS: ASPIRIN 81 MG CHEWABLE TABLETS PO SCH (09:53)
[2016-06-23] MEDS: NAPROXEN 500 MG TABLET (FP) PO SCH ×2 (09:53→21:33)
[2016-06-23] MEDS: PRENATAL VITAMINS W/ FOLIC ACID TABLET (FP) PO SCH (09:53)
[2016-06-23] MEDS: PANTOPRAZOLE 40 MG TABLET (FP) PO SCH (09:54)
[2016-06-23] MEDS: GABAPENTIN 100 MG CAPSULE (FP) PO SCH ×3 (09:54→21:33)
[2016-06-23] MEDS: traZODone HCL 50 MG TABLET (FP) PO SCH (21:33)
[2016-06-23] MEDS: THIAMINE HCL 100 MG TABLET (FP) PO SCH (21:33)
[2016-06-24] MEDS: PRENATAL VITAMINS W/ FOLIC ACID TABLET (FP) PO SCH (09:50)
[2016-06-24] MEDS: ASPIRIN 81 MG CHEWABLE TABLETS PO SCH (09:50)
[2016-06-24] MEDS: NAPROXEN 500 MG TABLET (FP) PO SCH ×2 (09:50→21:52)
[2016-06-24] MEDS: PANTOPRAZOLE 40 MG TABLET (FP) PO SCH (09:50)
[2016-06-24] MEDS: GABAPENTIN 100 MG CAPSULE (FP) PO SCH ×3 (09:51→21:53)
[2016-06-24] MEDS: THIAMINE HCL 100 MG TABLET (FP) PO SCH (21:52)
[2016-06-24] MEDS: traZODone HCL 50 MG TABLET (FP) PO SCH (21:53)
[2016-06-25] MEDS: GABAPENTIN 100 MG CAPSULE (FP) PO SCH (06:35)
[2016-06-25 07:09] VITALS: BP 127/76; PULSE 77; TEMP 98.1
[2016-06-25] MEDS: NAPROXEN 500 MG TABLET (FP) PO SCH (09:13)
[2016-06-25] MEDS: PRENATAL VITAMINS W/ FOLIC ACID TABLET (FP) PO SCH (09:13)
[2016-06-25] MEDS: ASPIRIN 81 MG CHEWABLE TABLETS PO SCH (09:13)
[2016-06-25] MEDS: PANTOPRAZOLE 40 MG TABLET (FP) PO SCH (09:14)
--- NOTE | 2016-06-25 11:45 | PN ---
Psychiatric Progress Note Vital Signs: Vital Signs Period Temp Pulse Resp BP Sys/Anne Pulse Ox Last 24 Hr 98.1 F 77 18-18 127/76 Date of Session: 06/25/16 Chief Complaint:: discharge visit HPI: Patient has addressed alcohol, opioid dependence comorid substance induced mood disorder. ROS: Hep C, GERD medically managed. Provider note:: Patient has completed his treatment today and met his goals, will continue to address his issues at [facility], he focused on importance of changing behavior for the utilization of supports to prevet relapses. He understands the negative consequenses of his addiction and motivated to continue maintain sobriety. He reports thatTrazodone and Neurontin have beed effective and scripts provided for 30 days. Patient was encouraged to utilize all supports to prevent relapses. Patient is stable for discharge today. Total face to face time:: 30 Mental Status Exam - Mental Status Exam Alert and Oriented to: Time, Place, Person Cognitive Function: Good Patient Appearance: Well Groomed Mood: Hopeful Affect: Appropriate, Mood Congruent Patient Behavior: Cooperative Speech Pattern: Clear, Appropriate Voice Loudness: Normal Thought Process: Intact, Goal Oriented Thought Disorder: Not Present Hallucinations: Denies Suicidal Ideation: Denies Homicidal Ideation: Denies Insight/Judgement: Good Sleep: Well Appetite: Good Muscle strength/Tone: Normal Gait/Station: Normal Psychiatric Treatment Plan - Problem List (1) Alcohol dependence Qualifiers: Substance use status: uncomplicated Qualified Code(s): F10.20 - Alcohol dependence, uncomplicated (2) Opioid dependence Qualifiers: Substance use status: uncomplicated Qualified Code(s): F11.20 - Opioid dependence, uncomplicated
== END 2016-06-25 09:50 | disposition home or self-care (01) | DRG 772 ==
LOC: YASAS 12:35 → Y5N 12:37
PROVIDERS: ADMIT Psychiatry & Neurology Psychiatry; ATTEND Psychiatry & Neurology Psychiatry
PROC: HZ42ZZZ Group Counseling for Substance Abuse Treatment, Cognitive-Behavioral (ICD-10-PCS; principal; 2016-06-25)
DX: F11.20 Opioid dependence, uncomplicated (principal); F10.230 Alcohol dependence with withdrawal, uncomplicated; F19.282 Other psychoactive substance dependence with psychoactive substance-induced sleep disorder

== ENCOUNTER 2018-05-28 12:24 | Inpatient (IN) | payer OTHER ==
[2018-05-28 14:08] VITALS: BMI 27.4
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
[2018-05-28] MEDS ORDERED: LOPERAMIDE HCL 2 MG CAPSULE PO PRN (17:39)
[2018-05-28] MEDS ORDERED: guaiFENesin/D-METHORPHAN HB 10 ML UNIT-DOSE CUPS PO PRN (17:39)
[2018-05-28] MEDS ORDERED: MAG HYDROX/AL HYDROX/SIMETH 30 ML UNIT-DOSE CUP PO PRN (17:39)
[2018-05-28] MEDS ORDERED: IBUPROFEN 400 MG TABLET (FP) PO PRN (17:39)
[2018-05-28] MEDS ORDERED: chlordiazePOXIDE HCL 25 MG CAPSULE PO ONE (17:39)
[2018-05-28] MEDS ORDERED: P-EPHED 60MG/TRIPROLIDI 2.5MG TABLET PO PRN (17:39)
[2018-05-28] MEDS ORDERED: MENTHOL/PHENOL 1 EACH UD MM PRN (17:39)
[2018-05-28] MEDS ORDERED: ACETAMINOPHEN 325 MG TABLET (FP) PO PRN (17:39)
[2018-05-28] MEDS ORDERED: hydrOXYzine PAMOATE 50 MG CAPSULE (FP) PO PRN (17:39)
[2018-05-28] MEDS ORDERED: chlordiazePOXIDE HCL 25 MG CAPSULE PO PRN (17:39)
[2018-05-28] MEDS ORDERED: MAGNESIUM CITRATE 300 ML BOTTLE PO PRN (17:39)
[2018-05-28] MEDS ORDERED: MAGNESIUM HYDROX 2400MG/30ML ORAL SUSPENSION 30 ML CUP PO PRN (17:39)
[2018-05-28] MEDS ORDERED: MELATONIN 5 MG TABLETS PO PRN (22:00)
[2018-05-28] MEDS: THIAMINE HCL 100 MG TABLET (FP) PO SCH (22:43)
[2018-05-28] MEDS: chlordiazePOXIDE HCL 25 MG CAPSULE PO SCH (22:43)
[2018-05-29] MEDS: chlordiazePOXIDE HCL 25 MG CAPSULE PO SCH ×4 (05:28→22:19)
[2018-05-29] MEDS: PRENATAL VITAMINS W/ FOLIC ACID TABLET (FP) PO SCH (10:30)
[2018-05-29 11:16] LABS: ALBUMIN 3.1 g/dl (3.4-5.0); ALK PHOS 74 U/L (45-117); ANION GAP 8 MMOL/L (8-16); BILIRUBIN,TOTAL 0.4 mg/dL (0.2-1); BLOOD UREA NITROGEN 11 mg/dL (7-18); CALCIUM 8.4 mg/dL (8.5-10.1); CHLORIDE 104 mmol/L (98-107); CO2 28 mmol/L (21-32); CREATININE 0.8 mg/dL (0.55-1.3); GLUCOSE,RANDOM 77 mg/dL (74-106); POTASSIUM 5.1 mmol/L (3.5-5.1); SGOT/AST 44 U/L (15-37); SGPT/ALT 16 U/L (13-61); SODIUM 140 mmol/L (136-145); TOT PROT 6.6 g/dl (6.4-8.2)
[2018-05-29] MEDS ORDERED: METHADONE HCL 10 MG TABLET PO ONE (11:21)
[2018-05-29] MEDS ORDERED: ARTIFICIAL TEARS (POLYVINYL ALCOHOL) OPTH DROPS OU PRN (11:26)
[2018-05-29] MEDS ORDERED: SODIUM CHLORIDE NASAL SPRAY 44 ML BOTTLE NS PRN (11:28)
[2018-05-29] MEDS ORDERED: METHADONE 40 MG, METHADONE 20 MG PO ONE ×2 (11:30→11:45)
--- NOTE | 2018-05-29 16:23 | PN ---
S CIWA - CIWA Score Nausea/Vomitin Muscle Tremors: 4-Moderate,w/Arms Extend Anxiety: 4-Mod. Anxious/Guarded Agitation: 4-Moderately Restless Paroxysmal Sweats: 3 Orientation: 0-Oriented Tacttile Disturbances: 0-None Auditory Disturbances: 0-None Visual Disturbances: 0-None Headache: 0-None Present CIWA-Ar Total Score: 17 BHS Progress Note (SOAP) Subjective: Sweating, tremor, stomach ache, headache, dryness in eyes and nose, interrupted sleep. Patient reported taking methadone MMTP 60mg and that he has it in his property. Patient had 2 of 60mg bottles of methadone solution dated 05/29/18 and 05/30/18 from [facility], [address] [place] [address]. Patient wants to take his methadone. Objective: 05/29/18 16:21 Last Vital Signs Temp Pulse Resp BP Pulse Ox 97.4 F L 77 18 100/65 05/29/18 14:29 05/29/18 14:29 05/29/18 14:29 05/29/18 14:29 Laboratory Tests 05/29/18 05/29/18 05/29/18 07:35 07:35 07:35 WBC Cancelled Corrected WBC (auto) Cancelled RBC Cancelled Hgb Cancelled Hct Cancelled MCV Cancelled MCH Cancelled MCHC Cancelled RDW Cancelled Plt Count Cancelled MPV Cancelled Manual Slide Review Cancelled Platelet Comment Cancelled Sodium 140 Potassium 5.1 Chloride 104 Carbon Dioxide 28 Anion Gap 8 BUN 11 Creatinine 0.8 Creat Clearance w eGFR > 60 Random Glucose 77 Calcium 8.4 L Total Bilirubin 0.4 AST 44 H ALT 16 Alkaline Phosphatase 74 Total Protein 6.6 Albumin 3.1 L RPR Titer Nonreactive Labs reviewed: CBC reordered in AM Assessment: 05/29/18 16:22 Withdrawal symptoms Plan: Continue detox Encouraged PO water intake Opioid dependence on agonist: resume methadone 60mg from patient's supply for today and tomorrow. Methadone needs verification for Wednesday onwards.
[2018-05-29] MEDS: THIAMINE HCL 100 MG TABLET (FP) PO SCH (22:19)
[2018-05-30] MEDS ORDERED: METHADONE HCL 10 MG TABLET ONE (04:52)
[2018-05-30] MEDS ORDERED: METHADONE HCL 40 MG DISPERSABLE TABLET ONE (04:53)
[2018-05-30] MEDS: chlordiazePOXIDE HCL 25 MG CAPSULE PO SCH ×3 (05:26→17:28)
[2018-05-30] MEDS ORDERED: METHADONE 40 MG, METHADONE 20 MG PO ONE (06:00)
[2018-05-30] MEDS ORDERED: METHADONE HCL 10 MG TABLET PO ONE (06:00)
[2018-05-30 10:14] LABS: BASO % 0.3 % (0-2.0); EOS % 3.6 % (0-4.5); HEMATOCRIT 37.2 % (35.4-49); HEMOGLOBIN 12.5 GM/dL (11.7-16.9); MCH 31.6 pg (25.7-33.7); MCHC 33.6 g/dl (32.0-35.9); MEAN CELL VOLUME 94.1 fl (80-96); MEAN PLT VOLUME 8.2 fl (7.5-11.1); MONO % 7.6 % (3.8-10.2); NEUT % 44.5 % (42.8-82.8); PLATELET COUNT 215 K/MM3 (134-434); RBC 3.95 M/mm3 (4.00-5.60); WHITE BLOOD COUNT 5.5 K/mm3 (4.0-10.0)
[2018-05-30 10:18] LABS: URINE APPEARANCE CLEAR; URINE BILIRUBIN NEGATIVE (<2.0 mg/dL); URINE COLOR LTYELLOW; URINE GLUCOSE (UA) NEGATIVE (NEGATIVE); URINE KETONE NEGATIVE (NEGATIVE); URINE LEUK ESTERASE NEGATIVE (NEGATIVE); URINE NITRITE NEGATIVE (NEGATIVE); URINE PROTEIN NEGATIVE (NEGATIVE); URINE UROBILINOGEN NEGATIVE mg/dL (0.2-1.0)
[2018-05-30] MEDS: PRENATAL VITAMINS W/ FOLIC ACID TABLET (FP) PO SCH (10:31)
--- NOTE | 2018-05-30 13:44 | PN ---
S CIWA - CIWA Score Nausea/Vomitin-Mild Nausea/No Vomiting Muscle Tremors: 3 Anxiety: 2 Agitation: 3 Paroxysmal Sweats: 1-Minimal Palms Moist Orientation: 0-Oriented Tacttile Disturbances: 0-None Auditory Disturbances: 0-None Visual Disturbances: 0-None Headache: 2-Mild CIWA-Ar Total Score: 12 BHS Progress Note (SOAP) Subjective: tremor sweating received nurse requests that methadone order of 60 mg for is necessary explained that methadone needed to be verified with the methadone program tomorrow staff as per protocol stated that long history of bipolar treated with lithium seroquel last visit psychiatrist at [facility] two weeks ago Objective: 05/30/18 13:54 Vital Signs Temperature 96.8 F L 05/30/18 09:14 Pulse Rate 78 05/30/18 09:14 Respiratory Rate 18 05/30/18 09:14 Blood Pressure 142/93 05/30/18 09:14 O2 Sat by Pulse Oximetry (%) Laboratory Last Values WBC 5.5 K/mm3 (4.0-10.0) 05/30/18 07:55 Corrected WBC (auto) Cancelled 05/29/18 07:35 RBC 3.95 M/mm3 (4.00-5.60) L 05/30/18 07:55 Hgb 12.5 GM/dL (11.7-16.9) 05/30/18 07:55 Hct 37.2 % (35.4-49) 05/30/18 07:55 MCV 94.1 fl (80-96) 05/30/18 07:55 MCH 31.6 pg (25.7-33.7) 05/30/18 07:55 MCHC 33.6 g/dl (32.0-35.9) 05/30/18 07:55 RDW 14.0 % (11.9-15.9) 05/30/18 07:55 Plt Count 215 K/MM3 (134-434) 05/30/18 07:55 MPV 8.2 fl (7.5-11.1) 05/30/18 07:55 Absolute Neuts (auto) 2.5 K/mm3 (1.5-8.0) 05/30/18 07:55 Neutrophils % 44.5 % (42.8-82.8) 05/30/18 07:55 Lymphocytes % 44.0 % (8-40) H 05/30/18 07:55 Monocytes % 7.6 % (3.8-10.2) 05/30/18 07:55 Eosinophils % 3.6 % (0-4.5) 05/30/18 07:55 Basophils % 0.3 % (0-2.0) 05/30/18 07:55 Nucleated RBC % 0 % (0-0) 05/30/18 07:55 Manual Slide Review Cancelled 05/29/18 07:35 Platelet Comment Cancelled 05/29/18 07:35 Sodium 140 mmol/L (136-145) 05/29/18 07:35 Potassium 5.1 mmol/L (3.5-5.1) 05/29/18 07:35 Chloride 104 mmol/L (98-107) 05/29/18 07:35 Carbon Dioxide 28 mmol/L (21-32) 05/29/18 07:35 Anion Gap 8 MMOL/L (8-16) 05/29/18 07:35 BUN 11 mg/dL (7-18) 05/29/18 07:35 Creatinine 0.8 mg/dL (0.55-1.3) 05/29/18 07:35 Creat Clearance w eGFR > 60 (>60) 05/29/18 07:35 Random Glucose 77 mg/dL (74-106) 05/29/18 07:35 Calcium 8.4 mg/dL (8.5-10.1) L 05/29/18 07:35 Total Bilirubin 0.4 mg/dL (0.2-1) 05/29/18 07:35 AST 44 U/L (15-37) H 05/29/18 07:35 ALT 16 U/L (13-61) 05/29/18 07:35 Alkaline Phosphatase 74 U/L (45-117) 05/29/18 07:35 Total Protein 6.6 g/dl (6.4-8.2) 05/29/18 07:35 Albumin 3.1 g/dl (3.4-5.0) L 05/29/18 07:35 Urine Color Ltyellow 05/30/18 07:55 Urine Appearance Clear 05/30/18 07:55 Urine pH 6.0 (5.0-8.0) 05/30/18 07:55 Ur Specific [place] 1.015 (1.010-1.035) 05/30/18 07:55 Urine Protein Negative (NEGATIVE) 05/30/18 07:55 Urine Glucose (UA) Negative (NEGATIVE) 05/30/18 07:55 Urine Ketones Negative (NEGATIVE) 05/30/18 07:55 Urine Blood Negative (NEGATIVE) 05/30/18 07:55 Urine Nitrite Negative (NEGATIVE) 05/30/18 07:55 Urine Bilirubin Negative (<2.0 mg/dL) 05/30/18 07:55 Urine Urobilinogen Negative mg/dL (0.2-1.0) 05/30/18 07:55 Ur Leukocyte Esterase Negative (NEGATIVE) 05/30/18 07:55 RPR Titer Nonreactive (NONREACTIVE) 05/29/18 07:35 lab noted Assessment: 05/30/18 13:55 withdrawal sx bipolar I history of psychiatric hospitalization actively taking psychotropic medication patient met the psychiatric referral criteria Plan: continue detox
[2018-05-30] MEDS: THIAMINE HCL 100 MG TABLET (FP) PO SCH (22:11)
[2018-05-30] MEDS: chlordiazePOXIDE 5 MG CAPSULE PO SCH (22:11)
[2018-05-30] MEDS: PANTOPRAZOLE 20 MG TABLET (FP) PO SCH (23:07)
[2018-05-31] MEDS: chlordiazePOXIDE 5 MG CAPSULE PO SCH ×3 (05:23→17:31)
[2018-05-31] MEDS ORDERED: METHADONE HCL 10 MG TABLET PO SCH (07:45)
[2018-05-31] MEDS ORDERED: METHADONE HCL 10 MG TABLET ONE (08:37)
[2018-05-31] MEDS ORDERED: METHADONE HCL 40 MG DISPERSABLE TABLET ONE (08:37)
[2018-05-31] MEDS: METHADONE 40 MG, METHADONE 20 MG PO SCH (08:52)
[2018-05-31] MEDS: PANTOPRAZOLE 20 MG TABLET (FP) PO SCH (10:20)
[2018-05-31] MEDS: PRENATAL VITAMINS W/ FOLIC ACID TABLET (FP) PO SCH (10:20)
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
--- NOTE | 2018-05-31 14:54 | PN ---
S Progress Note (SOAP) Subjective: FEELING BETTER LESS TREMOR MILD SWEATING SOCIAL WITH PEERS IN DAY ROOM Objective: 05/31/18 14:53 Vital Signs Temperature 97.7 F 05/31/18 13:17 Pulse Rate 72 05/31/18 13:17 Respiratory Rate 18 05/31/18 13:17 Blood Pressure 102/67 05/31/18 13:17 O2 Sat by Pulse Oximetry (%) Laboratory Last Values WBC 5.5 K/mm3 (4.0-10.0) 05/30/18 07:55 Corrected WBC (auto) Cancelled 05/29/18 07:35 RBC 3.95 M/mm3 (4.00-5.60) L 05/30/18 07:55 Hgb 12.5 GM/dL (11.7-16.9) 05/30/18 07:55 Hct 37.2 % (35.4-49) 05/30/18 07:55 MCV 94.1 fl (80-96) 05/30/18 07:55 MCH 31.6 pg (25.7-33.7) 05/30/18 07:55 MCHC 33.6 g/dl (32.0-35.9) 05/30/18 07:55 RDW 14.0 % (11.9-15.9) 05/30/18 07:55 Plt Count 215 K/MM3 (134-434) 05/30/18 07:55 MPV 8.2 fl (7.5-11.1) 05/30/18 07:55 Absolute Neuts (auto) 2.5 K/mm3 (1.5-8.0) 05/30/18 07:55 Neutrophils % 44.5 % (42.8-82.8) 05/30/18 07:55 Lymphocytes % 44.0 % (8-40) H 05/30/18 07:55 Monocytes % 7.6 % (3.8-10.2) 05/30/18 07:55 Eosinophils % 3.6 % (0-4.5) 05/30/18 07:55 Basophils % 0.3 % (0-2.0) 05/30/18 07:55 Nucleated RBC % 0 % (0-0) 05/30/18 07:55 Manual Slide Review Cancelled 05/29/18 07:35 Platelet Comment Cancelled 05/29/18 07:35 Sodium 140 mmol/L (136-145) 05/29/18 07:35 Potassium 5.1 mmol/L (3.5-5.1) 05/29/18 07:35 Chloride 104 mmol/L (98-107) 05/29/18 07:35 Carbon Dioxide 28 mmol/L (21-32) 05/29/18 07:35 Anion Gap 8 MMOL/L (8-16) 05/29/18 07:35 BUN 11 mg/dL (7-18) 05/29/18 07:35 Creatinine 0.8 mg/dL (0.55-1.3) 05/29/18 07:35 Creat Clearance w eGFR > 60 (>60) 05/29/18 07:35 Random Glucose 77 mg/dL (74-106) 05/29/18 07:35 Calcium 8.4 mg/dL (8.5-10.1) L 05/29/18 07:35 Total Bilirubin 0.4 mg/dL (0.2-1) 05/29/18 07:35 AST 44 U/L (15-37) H 05/29/18 07:35 ALT 16 U/L (13-61) 05/29/18 07:35 Alkaline Phosphatase 74 U/L (45-117) 05/29/18 07:35 Total Protein 6.6 g/dl (6.4-8.2) 05/29/18 07:35 Albumin 3.1 g/dl (3.4-5.0) L 05/29/18 07:35 Urine Color Ltyellow 05/30/18 07:55 Urine Appearance Clear 05/30/18 07:55 Urine pH 6.0 (5.0-8.0) 05/30/18 07:55 Ur Specific [place] 1.015 (1.010-1.035) 05/30/18 07:55 Urine Protein Negative (NEGATIVE) 05/30/18 07:55 Urine Glucose (UA) Negative (NEGATIVE) 05/30/18 07:55 Urine Ketones Negative (NEGATIVE) 05/30/18 07:55 Urine Blood Negative (NEGATIVE) 05/30/18 07:55 Urine Nitrite Negative (NEGATIVE) 05/30/18 07:55 Urine Bilirubin Negative (<2.0 mg/dL) 05/30/18 07:55 Urine Urobilinogen Negative mg/dL (0.2-1.0) 05/30/18 07:55 Ur Leukocyte Esterase Negative (NEGATIVE) 05/30/18 07:55 RPR Titer Nonreactive (NONREACTIVE) 05/29/18 07:35 LAB NOTED Assessment: 05/31/18 14:54 MILD WITHDRAWAL SX Plan: CONTINUE DETOX
[2018-05-31] MEDS: THIAMINE HCL 100 MG TABLET (FP) PO SCH (22:12)
[2018-05-31] MEDS: chlordiazePOXIDE HCL 10 MG CAPSULE PO SCH (22:12)
[2018-06-01] MEDS ORDERED: METHADONE HCL 40 MG DISPERSABLE TABLET ONE (05:02)
[2018-06-01] MEDS ORDERED: METHADONE HCL 10 MG TABLET ONE (05:02)
[2018-06-01] MEDS: chlordiazePOXIDE HCL 10 MG CAPSULE PO SCH ×2 (05:26→10:24)
[2018-06-01] MEDS: METHADONE 40 MG, METHADONE 20 MG PO SCH (05:26)
[2018-06-01 09:13] VITALS: BP 109/72; PULSE 89; TEMP 99.6
[2018-06-01] MEDS: PANTOPRAZOLE 20 MG TABLET (FP) PO SCH (10:24)
[2018-06-01] MEDS: PRENATAL VITAMINS W/ FOLIC ACID TABLET (FP) PO SCH (10:24)
--- NOTE | 2018-06-01 13:43 | DS ---
[facility] Detox Discharge Summary Admission Date: 05/28/18 Discharge Date: 06/01/18 - History Present History: Alcohol Dependence Additional Comments: 62 years old male admitted on 05/28/18 for alcohol withdrawal stabilization completed detox regimen [facility] Pertinent Past History: patient agrees to return to methadone program for medical mental and addiction issues - Physical Exam Results Vital Signs: Vital Signs Temperature 99.6 F 06/01/18 09:13 Pulse Rate 89 06/01/18 09:13 Respiratory Rate 18 06/01/18 09:13 Blood Pressure 109/72 06/01/18 09:13 O2 Sat by Pulse Oximetry (%) Pertinent Admission Physical Exam Findings: alcohol withdrawal sx Laboratory Last Values WBC 5.5 K/mm3 (4.0-10.0) 05/30/18 07:55 Corrected WBC (auto) Cancelled 05/29/18 07:35 RBC 3.95 M/mm3 (4.00-5.60) L 05/30/18 07:55 Hgb 12.5 GM/dL (11.7-16.9) 05/30/18 07:55 Hct 37.2 % (35.4-49) 05/30/18 07:55 MCV 94.1 fl (80-96) 05/30/18 07:55 MCH 31.6 pg (25.7-33.7) 05/30/18 07:55 MCHC 33.6 g/dl (32.0-35.9) 05/30/18 07:55 RDW 14.0 % (11.9-15.9) 05/30/18 07:55 Plt Count 215 K/MM3 (134-434) 05/30/18 07:55 MPV 8.2 fl (7.5-11.1) 05/30/18 07:55 Absolute Neuts (auto) 2.5 K/mm3 (1.5-8.0) 05/30/18 07:55 Neutrophils % 44.5 % (42.8-82.8) 05/30/18 07:55 Lymphocytes % 44.0 % (8-40) H 05/30/18 07:55 Monocytes % 7.6 % (3.8-10.2) 05/30/18 07:55 Eosinophils % 3.6 % (0-4.5) 05/30/18 07:55 Basophils % 0.3 % (0-2.0) 05/30/18 07:55 Nucleated RBC % 0 % (0-0) 05/30/18 07:55 Manual Slide Review Cancelled 05/29/18 07:35 Platelet Comment Cancelled 05/29/18 07:35 Sodium 140 mmol/L (136-145) 05/29/18 07:35 Potassium 5.1 mmol/L (3.5-5.1) 05/29/18 07:35 Chloride 104 mmol/L (98-107) 05/29/18 07:35 Carbon Dioxide 28 mmol/L (21-32) 05/29/18 07:35 Anion Gap 8 MMOL/L (8-16) 05/29/18 07:35 BUN 11 mg/dL (7-18) 05/29/18 07:35 Creatinine 0.8 mg/dL (0.55-1.3) 05/29/18 07:35 Creat Clearance w eGFR > 60 (>60) 05/29/18 07:35 Random Glucose 77 mg/dL (74-106) 05/29/18 07:35 Calcium 8.4 mg/dL (8.5-10.1) L 05/29/18 07:35 Total Bilirubin 0.4 mg/dL (0.2-1) 05/29/18 07:35 AST 44 U/L (15-37) H 05/29/18 07:35 ALT 16 U/L (13-61) 05/29/18 07:35 Alkaline Phosphatase 74 U/L (45-117) 05/29/18 07:35 Total Protein 6.6 g/dl (6.4-8.2) 05/29/18 07:35 Albumin 3.1 g/dl (3.4-5.0) L 05/29/18 07:35 Urine Color Ltyellow 05/30/18 07:55 Urine Appearance Clear 05/30/18 07:55 Urine pH 6.0 (5.0-8.0) 05/30/18 07:55 Ur Specific [place] 1.015 (1.010-1.035) 05/30/18 07:55 Urine Protein Negative (NEGATIVE) 05/30/18 07:55 Urine Glucose (UA) Negative (NEGATIVE) 05/30/18 07:55 Urine Ketones Negative (NEGATIVE) 05/30/18 07:55 Urine Blood Negative (NEGATIVE) 05/30/18 07:55 Urine Nitrite Negative (NEGATIVE) 05/30/18 07:55 Urine Bilirubin Negative (<2.0 mg/dL) 05/30/18 07:55 Urine Urobilinogen Negative mg/dL (0.2-1.0) 05/30/18 07:55 Ur Leukocyte Esterase Negative (NEGATIVE) 05/30/18 07:55 RPR Titer Nonreactive (NONREACTIVE) 05/29/18 07:35 lab noted - Treatment Hospital Course: Detox Protocol Followed, Detoxed Safely, Responded well, Discharged Condition Good, Rehab Referral Accepted Patient [facility] - Medication Discharge Medications: Ambulatory Orders Esomeprazole Magnesium [Nexium 24Hr] 20 mg PO DAILY 05/28/18 - Diagnosis (1) Alcohol dependence with uncomplicated withdrawal Current Visit: Yes Status: Acute (2) Hepatitis C Current Visit: Yes Status: Chronic Qualifiers: Viral hepatitis chronicity: chronic Hepatic coma status: without hepatic coma Qualified Code(s): B18.2 - Chronic viral hepatitis C (3) Nicotine dependence Current Visit: Yes Status: Acute Qualifiers: Nicotine product type: cigarettes Substance use status: in withdrawal Qualified Code(s): F17.213 - Nicotine dependence, cigarettes, with withdrawal (4) Substance induced mood disorder Current Visit: Yes Status: Suspected (5) GERD (gastroesophageal reflux disease) Current Visit: Yes Status: Chronic Qualifiers: Esophagitis presence: without esophagitis Qualified Code(s): K21.9 - Gastro -esophageal reflux disease without esophagitis - AMA Did Patient Leave Against Medical Advice: No
== END 2018-06-01 13:42 | disposition home or self-care (01) | DRG 773 ==
LOC: YASAS 12:24 → Y3N 17:47
PROVIDERS: ADMIT Neuromusculoskeletal Medicine & OMM; ATTEND Neuromusculoskeletal Medicine & OMM
PROC: HZ2ZZZZ Detoxification Services for Substance Abuse Treatment (ICD-10-PCS; principal; 2018-05-28)
DX: F10.230 Alcohol dependence with withdrawal, uncomplicated (principal); F14.20 Cocaine dependence, uncomplicated; F11.20 Opioid dependence, uncomplicated; F17.213 Nicotine dependence, cigarettes, with withdrawal; F19.24 Other psychoactive substance dependence with psychoactive substance-induced mood disorder; K21.9 Gastro-esophageal reflux disease without esophagitis; B18.2 Chronic viral hepatitis C
CPT/HCPCS: 36415; 80053; 81003; 85025; 86593

== ENCOUNTER 2020-07-09 14:31 | Inpatient (IN) | payer OTHER ==
[2020-07-09 16:17] VITALS: BMI 29.3
[2020-07-09] MEDS ORDERED: MAGNESIUM CITRATE 300 ML BOTTLE PO PRN (17:37)
[2020-07-09] MEDS ORDERED: ACETAMINOPHEN 325 MG TABLET (FP) PO PRN ×2 (17:37)
[2020-07-09] MEDS ORDERED: BISMUTH SUBSALICYLATE 524 MG/30 ML UD PO PRN (17:37)
[2020-07-09] MEDS ORDERED: MAGNESIUM HYDROX 2400MG/30ML ORAL SUSPENSION 30 ML CUP PO PRN (17:37)
[2020-07-09] MEDS ORDERED: IBUPROFEN 400 MG TABLET (FP) PO PRN (17:37)
[2020-07-09] MEDS ORDERED: MENTHOL/PHENOL 1 EACH UD MM PRN (17:37)
[2020-07-09] MEDS ORDERED: MAG HYDROX/AL HYDROX/SIMETH 30 ML UNIT-DOSE CUP PO PRN (17:37)
[2020-07-09] MEDS ORDERED: ONDANSETRON *ODT* 4 MG TABLET SL PRN (17:37)
[2020-07-09] MEDS ORDERED: diazePAM 5 MG TABLET PO PRN (17:39)
[2020-07-09] MEDS: THIAMINE HCL 100 MG TABLET (FP) PO SCH (21:00)
[2020-07-09] MEDS: diazePAM 5 MG TABLET PO SCH ×2 (21:01→23:21)
[2020-07-09] MEDS: MELATONIN 5 MG TABLETS PO SCH (21:06)
[2020-07-10] MEDS: diazePAM 5 MG TABLET PO SCH ×2 (05:50→13:12)
[2020-07-10] MEDS ORDERED: METHADONE HCL 10 MG TABLET PO SCH (07:30)
[2020-07-10] MEDS ORDERED: METHADONE 40 MG, METHADONE 20 MG PO ONE (08:00)
[2020-07-10] MEDS ORDERED: METHADONE HCL 10 MG TABLET ONE (08:59)
[2020-07-10] MEDS ORDERED: METHADONE HCL 40 MG DISPERSABLE TABLET ONE (09:00)
[2020-07-10] MEDS: PRENATAL VITAMINS W/ FOLIC ACID TABLET (FP) PO SCH (09:08)
[2020-07-10 11:39] LABS: HEMATOCRIT 38.7 % (35.4-49); HEMOGLOBIN 12.8 GM/dL (11.7-16.9); MCH 30.9 pg (25.7-33.7); MEAN CELL VOLUME 93.5 fl (80-96); MEAN PLT VOLUME 8.2 fl (7.5-11.1); PLATELET COUNT 230 K/MM3 (134-434); RBC 4.14 M/mm3 (4.00-5.60); RDW 14.3 % (11.9-15.9)
[2020-07-10 11:47] LABS: ALBUMIN 3.3 g/dl (3.4-5.0); BLOOD UREA NITROGEN 12.8 mg/dL (7-18)
[2020-07-10 11:50] LABS: CREATININE 0.8 mg/dL (0.55-1.3)
[2020-07-10 11:51] LABS: BILIRUBIN,TOTAL 0.5 mg/dL (0.2-1); TOT PROT 6.6 g/dl (6.4-8.2)
[2020-07-10 11:55] LABS: POTASSIUM 3.7 mmol/L (3.5-5.1)
[2020-07-10] MEDS ORDERED: chlordiazePOXIDE HCL 25 MG CAPSULE PO PRN (13:14)
[2020-07-10] MEDS: chlordiazePOXIDE HCL 10 MG CAPSULE PO PRN (14:35)
[2020-07-10] MEDS: chlordiazePOXIDE HCL 25 MG CAPSULE PO SCH ×2 (18:03→22:24)
[2020-07-10] MEDS: MELATONIN 5 MG TABLETS PO SCH (22:23)
[2020-07-10] MEDS: THIAMINE HCL 100 MG TABLET (FP) PO SCH (22:23)
[2020-07-11] MEDS ORDERED: METHADONE HCL 10 MG TABLET ONE (04:43)
[2020-07-11] MEDS ORDERED: METHADONE HCL 40 MG DISPERSABLE TABLET ONE (04:44)
[2020-07-11] MEDS ORDERED: chlordiazePOXIDE HCL 25 MG CAPSULE PO SCH (05:00)
[2020-07-11] MEDS ORDERED: diazePAM 5 MG TABLET PO SCH (06:00)
[2020-07-11] MEDS: chlordiazePOXIDE HCL 25 MG CAPSULE PO SCH ×3 (06:16→22:07)
[2020-07-11] MEDS: METHADONE 40 MG, METHADONE 20 MG PO SCH (06:17)
[2020-07-11] MEDS: PRENATAL VITAMINS W/ FOLIC ACID TABLET (FP) PO SCH (10:25)
[2020-07-11] MEDS: chlordiazePOXIDE HCL 10 MG CAPSULE PO PRN (20:08)
[2020-07-11] MEDS: THIAMINE HCL 100 MG TABLET (FP) PO SCH (22:06)
[2020-07-11] MEDS: MELATONIN 5 MG TABLETS PO SCH (22:09)
[2020-07-12] MEDS ORDERED: chlordiazePOXIDE HCL 10 MG CAPSULE PO PRN
[2020-07-12] MEDS ORDERED: METHADONE HCL 10 MG TABLET ONE (04:04)
[2020-07-12] MEDS ORDERED: METHADONE HCL 40 MG DISPERSABLE TABLET ONE (04:05)
[2020-07-12] MEDS ORDERED: chlordiazePOXIDE HCL 10 MG CAPSULE PO SCH (05:00)
[2020-07-12] MEDS: METHADONE 40 MG, METHADONE 20 MG PO SCH (05:58)
[2020-07-12] MEDS: chlordiazePOXIDE HCL 10 MG CAPSULE PO SCH ×2 (05:59→18:00)
[2020-07-12] MEDS ORDERED: diazePAM 5 MG TABLET PO ONE (06:00)
[2020-07-12] MEDS: PRENATAL VITAMINS W/ FOLIC ACID TABLET (FP) PO SCH (10:32)
[2020-07-12] MEDS: PANTOPRAZOLE 20 MG TABLET PO SCH (16:04)
[2020-07-12] MEDS: METHOCARBAMOL 500 MG TABLET PO PRN (16:08)
[2020-07-12] MEDS: MELATONIN 5 MG TABLETS PO SCH (22:10)
[2020-07-12] MEDS: THIAMINE HCL 100 MG TABLET (FP) PO SCH (22:10)
[2020-07-13] MEDS ORDERED: METHADONE HCL 40 MG DISPERSABLE TABLET ONE (04:38)
[2020-07-13] MEDS ORDERED: METHADONE HCL 10 MG TABLET ONE (04:38)
[2020-07-13] MEDS ORDERED: chlordiazePOXIDE HCL 10 MG CAPSULE PO ONE (05:00)
[2020-07-13] MEDS: METHADONE 40 MG, METHADONE 20 MG PO SCH (06:25)
[2020-07-13] MEDS: PRENATAL VITAMINS W/ FOLIC ACID TABLET (FP) PO SCH (10:21)
[2020-07-13] MEDS: PANTOPRAZOLE 20 MG TABLET PO SCH (10:21)
[2020-07-13] MEDS: METHOCARBAMOL 500 MG TABLET PO PRN (15:25)
[2020-07-13] MEDS: MELATONIN 5 MG TABLETS PO SCH (22:46)
[2020-07-13] MEDS: THIAMINE HCL 100 MG TABLET (FP) PO SCH (22:46)
[2020-07-14] MEDS ORDERED: METHADONE HCL 10 MG TABLET ONE (03:23)
[2020-07-14] MEDS ORDERED: METHADONE HCL 40 MG DISPERSABLE TABLET ONE (03:24)
[2020-07-14] MEDS ORDERED: chlordiazePOXIDE HCL 10 MG CAPSULE PO ONE (05:00)
[2020-07-14] MEDS: METHADONE 40 MG, METHADONE 20 MG PO SCH (06:11)
[2020-07-14 08:11] VITALS: TEMP 97.3
[2020-07-14 10:07] VITALS: BP 116/75; PULSE 74
[2020-07-14] MEDS: PRENATAL VITAMINS W/ FOLIC ACID TABLET (FP) PO SCH (11:08)
[2020-07-14] MEDS: PANTOPRAZOLE 20 MG TABLET PO SCH (11:08)
== END 2020-07-14 13:20 | disposition home or self-care (01) | DRG 773 ==
LOC: YASAS 14:31 → Y6N 19:46
PROVIDERS: ADMIT Allergy & Immunology; ATTEND Allergy & Immunology
PROC: HZ2ZZZZ Detoxification Services for Substance Abuse Treatment (ICD-10-PCS; principal; 2020-07-09)
DX: F10.230 Alcohol dependence with withdrawal, uncomplicated (principal); F11.20 Opioid dependence, uncomplicated; F14.20 Cocaine dependence, uncomplicated; F19.24 Other psychoactive substance dependence with psychoactive substance-induced mood disorder; F42.4 Excoriation (skin-picking) disorder; K21.9 Gastro-esophageal reflux disease without esophagitis; B18.2 Chronic viral hepatitis C; Z88.8 Allergy status to other drugs, medicaments and biological substances
CPT/HCPCS: 36415; 80053; 85027; 86780; C9803; U0003

== ENCOUNTER 2021-04-17 13:17 | Inpatient (IN) | payer OTHER ==
[2021-04-17] MEDS ORDERED: ACETAMINOPHEN 325 MG TABLET (FP) PO PRN ×2 (14:34)
[2021-04-17] MEDS ORDERED: MAGNESIUM HYDROX 2400MG/30ML ORAL SUSPENSION 30 ML CUP PO PRN (14:34)
[2021-04-17] MEDS ORDERED: BISMUTH SUBSALICYLATE 262 MG/15 ML BTL PO PRN (14:34)
[2021-04-17] MEDS ORDERED: MENTHOL/PHENOL 1 EACH UD MM PRN (14:34)
[2021-04-17] MEDS ORDERED: ONDANSETRON *ODT* 4 MG TABLET SL PRN (14:34)
[2021-04-17] MEDS ORDERED: MAGNESIUM CITRATE 300 ML BOTTLE PO PRN (14:34)
[2021-04-17] MEDS ORDERED: MAG HYDROX/AL HYDROX/SIMETH 30 ML UNIT-DOSE CUP PO PRN (14:34)
[2021-04-17] MEDS ORDERED: chlordiazePOXIDE HCL 25 MG CAPSULE PO PRN (14:34)
[2021-04-17] MEDS ORDERED: NICOTINE 10 MG CARTRIDGE (INHALER) IH PRN (14:34)
[2021-04-17 15:03] VITALS: BMI 27.2
[2021-04-17] MEDS: chlordiazePOXIDE HCL 25 MG CAPSULE PO SCH ×2 (17:38→22:53)
[2021-04-17] MEDS: hydrOXYzine PAMOATE 25 MG CAPSULE (FP) PO SCH ×2 (17:38→22:54)
[2021-04-17] MEDS: MELATONIN 5 MG TABLETS PO SCH (22:54)
[2021-04-17] MEDS: THIAMINE HCL 100 MG TABLET (FP) PO SCH (22:54)
[2021-04-18] MEDS: chlordiazePOXIDE HCL 25 MG CAPSULE PO SCH ×4 (07:18→22:37)
[2021-04-18] MEDS: hydrOXYzine PAMOATE 25 MG CAPSULE (FP) PO SCH ×5 (07:19→22:36)
[2021-04-18] MEDS: PRENATAL VITAMINS W/ FOLIC ACID TABLET (FP) PO SCH (10:24)
[2021-04-18] MEDS: PANTOPRAZOLE 20 MG TABLET PO SCH (10:24)
[2021-04-18] MEDS ORDERED: methaDONE 40 MG, methaDONE 20 MG PO ONE (10:45)
[2021-04-18] MEDS ORDERED: methaDONE HCL 40 MG DISPERSABLE TABLET PO SCH (10:45)
[2021-04-18] MEDS ORDERED: methaDONE HCL 10 MG TABLET ONE (10:52)
[2021-04-18] MEDS ORDERED: methaDONE HCL 40 MG DISPERSABLE TABLET ONE (10:53)
[2021-04-18 14:48] LABS: BLOOD UREA NITROGEN 9.9 mg/dL (7-18); CALCIUM 8.7 mg/dL (8.5-10.1)
[2021-04-18 14:50] LABS: HEMATOCRIT 39.2 % (35.4-49); HEMOGLOBIN 12.5 GM/dL (11.7-16.9); MCH 29.6 pg (25.7-33.7); MCHC 31.9 g/dl (32.0-35.9); MEAN CELL VOLUME 92.8 fl (80-96); MEAN PLT VOLUME 8.3 fl (7.5-11.1); PLATELET COUNT 278 10^3/uL (134-434); RBC 4.23 M/mm3 (4.00-5.60); RDW 15.5 % (11.9-15.9); WHITE BLOOD COUNT 6.1 K/mm3 (4.0-10.0)
[2021-04-18 14:52] LABS: CREATININE 0.9 mg/dL (0.55-1.3)
[2021-04-18 14:53] LABS: BILIRUBIN,TOTAL 0.2 mg/dL (0.2-1); TOT PROT 6.6 g/dl (6.4-8.2)
[2021-04-18] MEDS: THIAMINE HCL 100 MG TABLET (FP) PO SCH (22:36)
[2021-04-18] MEDS: MELATONIN 5 MG TABLETS PO SCH (22:36)
[2021-04-19] MEDS ORDERED: methaDONE HCL 40 MG DISPERSABLE TABLET ONE (04:19)
[2021-04-19] MEDS ORDERED: methaDONE HCL 10 MG TABLET ONE (04:19)
[2021-04-19] MEDS: hydrOXYzine PAMOATE 25 MG CAPSULE (FP) PO SCH ×5 (06:41→22:08)
[2021-04-19] MEDS: methaDONE 40 MG, methaDONE 20 MG PO SCH (06:49)
[2021-04-19] MEDS: chlordiazePOXIDE HCL 25 MG CAPSULE PO SCH ×4 (06:52→22:06)
[2021-04-19] MEDS: IBUPROFEN 400 MG TABLET (FP) PO PRN (06:57)
[2021-04-19] MEDS: PRENATAL VITAMINS W/ FOLIC ACID TABLET (FP) PO SCH (11:03)
[2021-04-19] MEDS: PANTOPRAZOLE 20 MG TABLET PO SCH (11:03)
[2021-04-19] MEDS: METHOCARBAMOL 500 MG TABLET PO PRN (18:09)
[2021-04-19] MEDS: MELATONIN 5 MG TABLETS PO SCH (22:05)
[2021-04-19] MEDS: THIAMINE HCL 100 MG TABLET (FP) PO SCH (22:05)
[2021-04-20] MEDS ORDERED: chlordiazePOXIDE HCL 10 MG CAPSULE PO PRN
[2021-04-20] MEDS ORDERED: methaDONE HCL 10 MG TABLET ONE (04:16)
[2021-04-20] MEDS ORDERED: methaDONE HCL 40 MG DISPERSABLE TABLET ONE (04:16)
[2021-04-20] MEDS: methaDONE 40 MG, methaDONE 20 MG PO SCH (05:47)
[2021-04-20] MEDS: hydrOXYzine PAMOATE 25 MG CAPSULE (FP) PO SCH ×5 (05:48→22:43)
[2021-04-20] MEDS: chlordiazePOXIDE HCL 10 MG CAPSULE PO SCH ×4 (05:48→22:43)
[2021-04-20] MEDS: PRENATAL VITAMINS W/ FOLIC ACID TABLET (FP) PO SCH (10:56)
[2021-04-20] MEDS: PANTOPRAZOLE 20 MG TABLET PO SCH (11:00)
[2021-04-20] MEDS: IBUPROFEN 400 MG TABLET (FP) PO PRN (21:29)
[2021-04-20] MEDS: METHOCARBAMOL 500 MG TABLET PO PRN (21:29)
[2021-04-20 21:44] LABS: URINE APPEARANCE CLEAR; URINE BILIRUBIN NEGATIVE (NEGATIVE); URINE COLOR YELLOW; URINE GLUCOSE (UA) NEGATIVE (NEGATIVE); URINE KETONE TRACE (NEGATIVE); URINE LEUK ESTERASE NEGATIVE (NEGATIVE); URINE NITRITE NEGATIVE (NEGATIVE); URINE PROTEIN NEGATIVE (NEGATIVE); URINE UROBILINOGEN 0.2 mg/dL (0.2-1.0)
[2021-04-20] MEDS: MELATONIN 5 MG TABLETS PO SCH (22:42)
[2021-04-20] MEDS: THIAMINE HCL 100 MG TABLET (FP) PO SCH (22:43)
[2021-04-21] MEDS ORDERED: methaDONE HCL 40 MG DISPERSABLE TABLET ONE (04:09)
[2021-04-21] MEDS ORDERED: methaDONE HCL 10 MG TABLET ONE (04:09)
[2021-04-21] MEDS: methaDONE 40 MG, methaDONE 20 MG PO SCH (05:42)
[2021-04-21] MEDS: hydrOXYzine PAMOATE 25 MG CAPSULE (FP) PO SCH ×5 (05:42→22:15)
[2021-04-21] MEDS: chlordiazePOXIDE HCL 10 MG CAPSULE PO SCH ×2 (05:44→17:44)
[2021-04-21] MEDS: IBUPROFEN 400 MG TABLET (FP) PO PRN ×2 (05:44→17:44)
[2021-04-21] MEDS: PRENATAL VITAMINS W/ FOLIC ACID TABLET (FP) PO SCH (10:30)
[2021-04-21] MEDS: METHOCARBAMOL 500 MG TABLET PO PRN ×2 (10:30→22:16)
[2021-04-21] MEDS: PANTOPRAZOLE 20 MG TABLET PO SCH (10:32)
[2021-04-21] MEDS: MELATONIN 5 MG TABLETS PO SCH (22:15)
[2021-04-21] MEDS: THIAMINE HCL 100 MG TABLET (FP) PO SCH (22:15)
[2021-04-22] MEDS ORDERED: methaDONE HCL 10 MG TABLET ONE (04:15)
[2021-04-22] MEDS ORDERED: methaDONE HCL 40 MG DISPERSABLE TABLET ONE (04:15)
[2021-04-22] MEDS ORDERED: chlordiazePOXIDE HCL 10 MG CAPSULE PO ONE (05:00)
[2021-04-22] MEDS: methaDONE 40 MG, methaDONE 20 MG PO SCH (05:31)
[2021-04-22] MEDS: hydrOXYzine PAMOATE 25 MG CAPSULE (FP) PO SCH ×2 (05:32→10:39)
[2021-04-22 09:07] VITALS: BP 118/59; PULSE 87; TEMP 98.1
[2021-04-22] MEDS: PANTOPRAZOLE 20 MG TABLET PO SCH (10:40)
[2021-04-22] MEDS: PRENATAL VITAMINS W/ FOLIC ACID TABLET (FP) PO SCH (10:40)
== END 2021-04-22 11:55 | disposition home or self-care (01) | DRG 773 ==
LOC: YASAS 13:17 → Y3N 15:05
PROVIDERS: ADMIT Allergy & Immunology; ATTEND Allergy & Immunology
PROC: HZ2ZZZZ Detoxification Services for Substance Abuse Treatment (ICD-10-PCS; principal; 2021-04-17)
DX: F10.230 Alcohol dependence with withdrawal, uncomplicated (principal); F11.20 Opioid dependence, uncomplicated; F14.20 Cocaine dependence, uncomplicated; F19.282 Other psychoactive substance dependence with psychoactive substance-induced sleep disorder; F34.1 Dysthymic disorder; K21.9 Gastro-esophageal reflux disease without esophagitis; M54.59 Other low back pain; G89.29 Other chronic pain; R35.0 Frequency of micturition; Z88.8 Allergy status to other drugs, medicaments and biological substances; Z86.19 Personal history of other infectious and parasitic diseases; Z56.0 Unemployment, unspecified
CPT/HCPCS: 36415; 80053; 81003; 83036; 85027; 86780; C9803; Q0162; U0003; U0005

== ENCOUNTER 2021-07-22 11:40 | Inpatient (IN) | payer OTHER ==
[2021-07-22] MEDS ORDERED: ONDANSETRON *ODT* 4 MG TABLET SL PRN (12:21)
[2021-07-22] MEDS ORDERED: LOPERAMIDE HCL 2 MG CAPSULE PO PRN (12:21)
[2021-07-22] MEDS ORDERED: IBUPROFEN 400 MG TABLET (FP) PO PRN (12:21)
[2021-07-22] MEDS ORDERED: MAG HYDROX/AL HYDROX/SIMETH 30 ML UNIT-DOSE CUP PO PRN (12:21)
[2021-07-22] MEDS ORDERED: MAGNESIUM HYDROX 2400MG/30ML ORAL SUSPENSION 30 ML CUP PO PRN (12:21)
[2021-07-22] MEDS ORDERED: MENTHOL/PHENOL 1 EACH UD MM PRN (12:21)
[2021-07-22] MEDS ORDERED: NICOTINE 10 MG CARTRIDGE (INHALER) IH PRN (12:21)
[2021-07-22] MEDS ORDERED: BISMUTH SUBSALICYLATE 524 MG/30 ML PO PRN (12:21)
[2021-07-22] MEDS ORDERED: ACETAMINOPHEN 325 MG TABLET (FP) PO PRN ×2 (12:21)
[2021-07-22] MEDS ORDERED: MAGNESIUM CITRATE 300 ML BOTTLE PO PRN (12:21)
[2021-07-22 12:45] VITALS: BMI 26.4
[2021-07-22] MEDS: diazePAM 5 MG TABLET PO PRN (14:21)
[2021-07-22] MEDS: BACITRACIN 0.9 GM PACKET TP SCH ×2 (14:21→22:38)
[2021-07-22] MEDS: hydrOXYzine PAMOATE 25 MG CAPSULE (FP) PO SCH ×3 (14:27→22:39)
[2021-07-22] MEDS: PRENATAL VITAMINS W/ FOLIC ACID TABLET (FP) PO SCH (14:28)
[2021-07-22] MEDS: NICOTINE 14 MG/24 HOURS TOPICAL PATCH TD SCH (14:28)
[2021-07-22 17:46] LABS: HEMATOCRIT 34.8 % (35.4-49); MCH 29.4 pg (25.7-33.7); MCHC 31.6 g/dl (32.0-35.9); MEAN CELL VOLUME 92.9 fl (80-96); MEAN PLT VOLUME 8.4 fl (7.5-11.1); PLATELET COUNT 272 10^3/uL (134-434); RBC 3.75 M/mm3 (4.00-5.60); RDW 17.4 % (11.9-15.9); WHITE BLOOD COUNT 6.2 K/mm3 (4.0-10.0)
[2021-07-22 17:58] LABS: CALCIUM 9.3 mg/dL (8.5-10.1)
[2021-07-22 17:59] LABS: ALBUMIN 3.7 g/dl (3.4-5.0); BLOOD UREA NITROGEN 12.3 mg/dL (7-18)
[2021-07-22 18:04] LABS: BILIRUBIN,TOTAL 0.5 mg/dL (0.2-1); CREATININE 0.7 mg/dL (0.55-1.3)
[2021-07-22 18:05] LABS: TOT PROT 7.3 g/dl (6.4-8.2)
[2021-07-22] MEDS: diazePAM 5 MG TABLET PO SCH ×3 (18:06→22:38)
[2021-07-22] MEDS: LIDOCAINE 5% TOPICAL PATCH TP SCH (18:08)
[2021-07-22] MEDS: POLYETHYLENE GLYCOL (HEALTHYLAX) 3350 17 GM PACKET PO SCH (22:38)
[2021-07-22] MEDS: MELATONIN 5 MG TABLETS PO SCH (22:39)
[2021-07-22] MEDS: THIAMINE HCL 100 MG TABLET (FP) PO SCH (22:39)
[2021-07-22] MEDS: LIDOCAINE PATCH REMOVAL MC SCH (22:40)
[2021-07-22] MEDS ORDERED: TAMSULOSIN HCL 0.4 MG CAP PO SCH (23:59)
[2021-07-23] MEDS: TAMSULOSIN HCL 0.4 MG CAP PO SCH ×2 (00:13→22:46)
[2021-07-23] MEDS: hydrOXYzine PAMOATE 25 MG CAPSULE (FP) PO SCH ×5 (05:03→22:46)
[2021-07-23] MEDS: diazePAM 5 MG TABLET PO SCH ×4 (05:03→22:46)
[2021-07-23] MEDS ORDERED: TAMSULOSIN HCL 0.4 MG CAP PO SCH (08:30)
[2021-07-23] MEDS: LIDOCAINE 5% TOPICAL PATCH TP SCH (10:28)
[2021-07-23] MEDS: PRENATAL VITAMINS W/ FOLIC ACID TABLET (FP) PO SCH (10:28)
[2021-07-23] MEDS: POLYETHYLENE GLYCOL (HEALTHYLAX) 3350 17 GM PACKET PO SCH (10:29)
[2021-07-23] MEDS: NICOTINE 14 MG/24 HOURS TOPICAL PATCH TD SCH (10:29)
[2021-07-23] MEDS: BACITRACIN 0.9 GM PACKET TP SCH ×2 (10:29→22:47)
[2021-07-23] MEDS ORDERED: methaDONE HCL 10 MG TABLET PO SCH (10:45)
[2021-07-23] MEDS ORDERED: methaDONE HCL 10 MG TABLET ONE (10:59)
[2021-07-23] MEDS ORDERED: methaDONE HCL 40 MG DISPERSABLE TABLET ONE (11:00)
[2021-07-23] MEDS: methaDONE 40 MG, methaDONE 20 MG PO SCH (11:02)
[2021-07-23] MEDS: METHOCARBAMOL 500 MG TABLET PO PRN ×2 (11:04→22:48)
[2021-07-23] MEDS: THIAMINE HCL 100 MG TABLET (FP) PO SCH (22:46)
[2021-07-23] MEDS: MELATONIN 5 MG TABLETS PO SCH (22:47)
[2021-07-23] MEDS: LIDOCAINE PATCH REMOVAL MC SCH (23:00)
[2021-07-24] MEDS ORDERED: methaDONE HCL 10 MG TABLET ONE (04:17)
[2021-07-24] MEDS ORDERED: methaDONE HCL 40 MG DISPERSABLE TABLET ONE (04:18)
[2021-07-24] MEDS: diazePAM 5 MG TABLET PO SCH ×3 (05:31→22:33)
[2021-07-24] MEDS: methaDONE 40 MG, methaDONE 20 MG PO SCH (05:31)
[2021-07-24] MEDS: hydrOXYzine PAMOATE 25 MG CAPSULE (FP) PO SCH ×5 (05:31→22:33)
[2021-07-24] MEDS: BACITRACIN 0.9 GM PACKET TP SCH ×2 (10:20→22:32)
[2021-07-24] MEDS: POLYETHYLENE GLYCOL (HEALTHYLAX) 3350 17 GM PACKET PO SCH (10:20)
[2021-07-24] MEDS: LIDOCAINE 5% TOPICAL PATCH TP SCH (10:20)
[2021-07-24] MEDS: diazePAM 5 MG TABLET PO PRN ×2 (10:21→17:37)
[2021-07-24] MEDS: NICOTINE 14 MG/24 HOURS TOPICAL PATCH TD SCH (10:23)
[2021-07-24] MEDS: PRENATAL VITAMINS W/ FOLIC ACID TABLET (FP) PO SCH (10:23)
[2021-07-24 14:08] LABS: SARS-CoV-2 NAA Not Detected (Not Detected)
[2021-07-24] MEDS: THIAMINE HCL 100 MG TABLET (FP) PO SCH (22:33)
[2021-07-24] MEDS: METHOCARBAMOL 500 MG TABLET PO PRN (22:33)
[2021-07-24] MEDS: MELATONIN 5 MG TABLETS PO SCH (22:33)
[2021-07-24] MEDS: TAMSULOSIN HCL 0.4 MG CAP PO SCH (22:34)
[2021-07-24] MEDS: LIDOCAINE PATCH REMOVAL MC SCH (22:36)
[2021-07-25] MEDS ORDERED: methaDONE HCL 40 MG DISPERSABLE TABLET ONE (04:29)
[2021-07-25] MEDS ORDERED: methaDONE HCL 10 MG TABLET ONE (04:29)
[2021-07-25] MEDS: diazePAM 5 MG TABLET PO SCH ×2 (05:18→17:45)
[2021-07-25] MEDS: methaDONE 40 MG, methaDONE 20 MG PO SCH (05:18)
[2021-07-25] MEDS: hydrOXYzine PAMOATE 25 MG CAPSULE (FP) PO SCH ×5 (07:06→22:30)
[2021-07-25] MEDS: PRENATAL VITAMINS W/ FOLIC ACID TABLET (FP) PO SCH (10:25)
[2021-07-25] MEDS: NICOTINE 14 MG/24 HOURS TOPICAL PATCH TD SCH (10:25)
[2021-07-25] MEDS: POLYETHYLENE GLYCOL (HEALTHYLAX) 3350 17 GM PACKET PO SCH (10:25)
[2021-07-25] MEDS: diazePAM 5 MG TABLET PO PRN (10:28)
[2021-07-25] MEDS: BACITRACIN 0.9 GM PACKET TP SCH ×2 (11:10→22:29)
[2021-07-25] MEDS: LIDOCAINE 5% TOPICAL PATCH TP SCH (11:10)
[2021-07-25] MEDS: TAMSULOSIN HCL 0.4 MG CAP PO SCH (22:29)
[2021-07-25] MEDS: MELATONIN 5 MG TABLETS PO SCH (22:30)
[2021-07-25] MEDS: LIDOCAINE PATCH REMOVAL MC SCH (22:30)
[2021-07-25] MEDS: THIAMINE HCL 100 MG TABLET (FP) PO SCH (22:30)
[2021-07-25] MEDS: METHOCARBAMOL 500 MG TABLET PO PRN (22:31)
[2021-07-26] MEDS ORDERED: methaDONE HCL 40 MG DISPERSABLE TABLET ONE (04:21)
[2021-07-26] MEDS ORDERED: methaDONE HCL 10 MG TABLET ONE (04:21)
[2021-07-26] MEDS: hydrOXYzine PAMOATE 25 MG CAPSULE (FP) PO SCH ×5 (05:40→23:08)
[2021-07-26] MEDS: methaDONE 40 MG, methaDONE 20 MG PO SCH (05:40)
[2021-07-26] MEDS ORDERED: diazePAM 5 MG TABLET PO ONE (06:00)
[2021-07-26] MEDS: PRENATAL VITAMINS W/ FOLIC ACID TABLET (FP) PO SCH (10:26)
[2021-07-26] MEDS: LIDOCAINE 5% TOPICAL PATCH TP SCH (10:27)
[2021-07-26] MEDS: POLYETHYLENE GLYCOL (HEALTHYLAX) 3350 17 GM PACKET PO SCH (10:27)
[2021-07-26] MEDS: NICOTINE 14 MG/24 HOURS TOPICAL PATCH TD SCH (10:27)
[2021-07-26] MEDS: BACITRACIN 0.9 GM PACKET TP SCH ×2 (10:27→23:08)
[2021-07-26] MEDS: MELATONIN 5 MG TABLETS PO SCH (23:08)
[2021-07-26] MEDS: TAMSULOSIN HCL 0.4 MG CAP PO SCH (23:08)
[2021-07-26] MEDS: THIAMINE HCL 100 MG TABLET (FP) PO SCH (23:08)
[2021-07-26] MEDS: LIDOCAINE PATCH REMOVAL MC SCH (23:08)
[2021-07-26] MEDS: METHOCARBAMOL 500 MG TABLET PO PRN (23:09)
[2021-07-27] MEDS ORDERED: methaDONE HCL 10 MG TABLET ONE (04:13)
[2021-07-27] MEDS ORDERED: methaDONE HCL 40 MG DISPERSABLE TABLET ONE (04:13)
[2021-07-27] MEDS: methaDONE 40 MG, methaDONE 20 MG PO SCH (05:19)
[2021-07-27] MEDS: hydrOXYzine PAMOATE 25 MG CAPSULE (FP) PO SCH ×2 (05:20→10:04)
[2021-07-27 09:07] VITALS: BP 91/45; PULSE 80; TEMP 98
[2021-07-27] MEDS: PRENATAL VITAMINS W/ FOLIC ACID TABLET (FP) PO SCH (10:04)
[2021-07-27] MEDS: LIDOCAINE 5% TOPICAL PATCH TP SCH (10:04)
[2021-07-27] MEDS: NICOTINE 14 MG/24 HOURS TOPICAL PATCH TD SCH (10:04)
[2021-07-27] MEDS: POLYETHYLENE GLYCOL (HEALTHYLAX) 3350 17 GM PACKET PO SCH (10:04)
[2021-07-27] MEDS: BACITRACIN 0.9 GM PACKET TP SCH (10:04)
== END 2021-07-27 11:40 | disposition other institution (70) | DRG 773 ==
LOC: YASAS 11:40 → Y3N 12:54
PROVIDERS: ADMIT Allergy & Immunology; ATTEND Allergy & Immunology
PROC: HZ2ZZZZ Detoxification Services for Substance Abuse Treatment (ICD-10-PCS; principal; 2021-07-22)
DX: F10.230 Alcohol dependence with withdrawal, uncomplicated (principal); F11.20 Opioid dependence, uncomplicated; F14.20 Cocaine dependence, uncomplicated; J21.9 Acute bronchiolitis, unspecified; M54.50 Low back pain, unspecified; G89.29 Other chronic pain; Z86.19 Personal history of other infectious and parasitic diseases; Z88.8 Allergy status to other drugs, medicaments and biological substances
CPT/HCPCS: 36415; 80053; 85027; 86780; 87811; C9803-CS; U0003; U0005

== ENCOUNTER 2021-08-06 11:36 | Inpatient (IN) | payer OTHER ==
[2021-08-06] MEDS ORDERED: guaiFENesin 200 MG/10 ML 10 ML UNIT-DOSE CUPS PO PRN (11:54)
[2021-08-06] MEDS ORDERED: NICOTINE 10 MG CARTRIDGE (INHALER) IH PRN (11:54)
[2021-08-06] MEDS ORDERED: ACETAMINOPHEN 325 MG TABLET (FP) PO PRN (11:54)
[2021-08-06] MEDS ORDERED: MAGNESIUM HYDROX 2400MG/30ML ORAL SUSPENSION 30 ML CUP PO PRN (11:54)
[2021-08-06] MEDS ORDERED: MAG HYDROX/AL HYDROX/SIMETH 30 ML UNIT-DOSE CUP PO PRN (11:54)
[2021-08-06] MEDS ORDERED: MAGNESIUM CITRATE 300 ML BOTTLE PO PRN (11:54)
[2021-08-06] MEDS ORDERED: LOPERAMIDE HCL 2 MG CAPSULE PO PRN (11:54)
[2021-08-06] MEDS ORDERED: P-EPHED 60MG/TRIPROLIDI 2.5MG TABLET PO PRN (11:54)
[2021-08-06] MEDS ORDERED: IBUPROFEN 400 MG TABLET (FP) PO PRN (11:54)
[2021-08-06 12:24] VITALS: BMI 25.3
[2021-08-06] MEDS: hydrOXYzine PAMOATE 25 MG CAPSULE (FP) PO SCH ×3 (14:42→21:43)
[2021-08-06] MEDS: LIDOCAINE 5% TOPICAL PATCH TP SCH (14:44)
[2021-08-06] MEDS: PRENATAL VITAMINS W/ FOLIC ACID TABLET (FP) PO SCH (14:45)
[2021-08-06] MEDS: NICOTINE 7 MG/24 HOURS TOPICAL PATCH TD SCH (14:45)
[2021-08-06 18:28] LABS: ALBUMIN 3.5 g/dl (3.4-5.0); BLOOD UREA NITROGEN 18.7 mg/dL (7-18)
[2021-08-06 18:31] LABS: CREATININE 0.9 mg/dL (0.55-1.3); HEMATOCRIT 36.8 % (35.4-49); HEMOGLOBIN 12.1 GM/dL (11.7-16.9); MCH 30.5 pg (25.7-33.7); MEAN CELL VOLUME 92.4 fl (80-96); MEAN PLT VOLUME 8.1 fl (7.5-11.1); PLATELET COUNT 291 10^3/uL (134-434); RBC 3.98 M/mm3 (4.00-5.60); RDW 16.9 % (11.9-15.9); WHITE BLOOD COUNT 6.5 K/mm3 (4.0-10.0)
[2021-08-06 18:32] LABS: TOT PROT 7.4 g/dl (6.4-8.2)
[2021-08-06 18:33] LABS: BILIRUBIN,TOTAL 0.2 mg/dL (0.2-1)
[2021-08-06] MEDS: MELATONIN 5 MG TABLETS PO SCH (21:43)
[2021-08-06] MEDS: THIAMINE HCL 100 MG TABLET (FP) PO SCH (21:43)
[2021-08-06] MEDS: SULFAMETHOXAZOLE/TRIMETHOPRIM 800MG/160MG D.S. TABLET PO SCH (21:45)
[2021-08-06] MEDS: TAMSULOSIN HCL 0.4 MG CAP PO SCH (21:45)
[2021-08-06] MEDS: LIDOCAINE PATCH REMOVAL MC SCH (21:45)
[2021-08-07] MEDS: hydrOXYzine PAMOATE 25 MG CAPSULE (FP) PO SCH ×5 (06:32→21:11)
[2021-08-07] MEDS ORDERED: methaDONE HCL 10 MG TABLET PO ONE (09:38)
[2021-08-07] MEDS ORDERED: methaDONE 40 MG, methaDONE 20 MG PO ONE (09:45)
[2021-08-07] MEDS ORDERED: methaDONE HCL 10 MG TABLET ONE (10:19)
[2021-08-07] MEDS ORDERED: methaDONE HCL 40 MG DISPERSABLE TABLET ONE (10:20)
[2021-08-07] MEDS: SULFAMETHOXAZOLE/TRIMETHOPRIM 800MG/160MG D.S. TABLET PO SCH ×2 (10:36→21:12)
[2021-08-07] MEDS: LIDOCAINE 5% TOPICAL PATCH TP SCH (10:36)
[2021-08-07] MEDS: PRENATAL VITAMINS W/ FOLIC ACID TABLET (FP) PO SCH (10:37)
[2021-08-07] MEDS: NICOTINE 7 MG/24 HOURS TOPICAL PATCH TD SCH (10:37)
[2021-08-07 14:55] LABS: URINE APPEARANCE CLEAR; URINE BILIRUBIN NEGATIVE (NEGATIVE); URINE COLOR YELLOW; URINE GLUCOSE (UA) NEGATIVE (NEGATIVE); URINE KETONE NEGATIVE (NEGATIVE); URINE LEUK ESTERASE NEGATIVE (NEGATIVE); URINE NITRITE NEGATIVE (NEGATIVE); URINE PROTEIN NEGATIVE (NEGATIVE); URINE UROBILINOGEN 0.2 mg/dL (0.2-1.0)
[2021-08-07 21:06] LABS: SYPHILIS W/ RPR CONF NON-REACTIVE (NONREACTIVE)
[2021-08-07] MEDS: DOCUSATE SODIUM 100 MG CAPSULE (FP) PO SCH (21:11)
[2021-08-07] MEDS: THIAMINE HCL 100 MG TABLET (FP) PO SCH (21:11)
[2021-08-07] MEDS: TAMSULOSIN HCL 0.4 MG CAP PO SCH (21:11)
[2021-08-07] MEDS: MELATONIN 5 MG TABLETS PO SCH (21:12)
[2021-08-07] MEDS: LIDOCAINE PATCH REMOVAL MC SCH (21:13)
[2021-08-08] MEDS ORDERED: methaDONE HCL 40 MG DISPERSABLE TABLET ONE (05:09)
[2021-08-08] MEDS ORDERED: methaDONE HCL 10 MG TABLET ONE (05:09)
[2021-08-08] MEDS ORDERED: methaDONE HCL 10 MG TABLET PO SCH (06:00)
[2021-08-08] MEDS: hydrOXYzine PAMOATE 25 MG CAPSULE (FP) PO SCH ×5 (06:27→21:33)
[2021-08-08] MEDS: methaDONE 40 MG, methaDONE 20 MG PO SCH (06:27)
[2021-08-08] MEDS: SULFAMETHOXAZOLE/TRIMETHOPRIM 800MG/160MG D.S. TABLET PO SCH ×2 (10:20→21:31)
[2021-08-08] MEDS: PRENATAL VITAMINS W/ FOLIC ACID TABLET (FP) PO SCH (10:20)
[2021-08-08] MEDS: NICOTINE 7 MG/24 HOURS TOPICAL PATCH TD SCH (10:21)
[2021-08-08] MEDS: LIDOCAINE 5% TOPICAL PATCH TP SCH (10:21)
[2021-08-08] MEDS: FAMOTIDINE 20 MG TABLET PO SCH (12:59)
[2021-08-08 14:08] LABS: SARS-CoV-2 NAA Not Detected (Not Detected)
[2021-08-08] MEDS: LIDOCAINE PATCH REMOVAL MC SCH (21:33)
[2021-08-08] MEDS: TAMSULOSIN HCL 0.4 MG CAP PO SCH (21:33)
[2021-08-08] MEDS: DOCUSATE SODIUM 100 MG CAPSULE (FP) PO SCH (21:33)
[2021-08-08] MEDS: THIAMINE HCL 100 MG TABLET (FP) PO SCH (21:33)
[2021-08-08] MEDS: MELATONIN 5 MG TABLETS PO SCH (21:33)
[2021-08-09] MEDS ORDERED: methaDONE HCL 10 MG TABLET ONE (03:12)
[2021-08-09] MEDS ORDERED: methaDONE HCL 40 MG DISPERSABLE TABLET ONE (03:12)
[2021-08-09] MEDS: hydrOXYzine PAMOATE 25 MG CAPSULE (FP) PO SCH ×5 (07:05→21:37)
[2021-08-09] MEDS: methaDONE 40 MG, methaDONE 20 MG PO SCH (07:05)
[2021-08-09] MEDS: LIDOCAINE 5% TOPICAL PATCH TP SCH (09:55)
[2021-08-09] MEDS: SULFAMETHOXAZOLE/TRIMETHOPRIM 800MG/160MG D.S. TABLET PO SCH ×2 (09:55→21:37)
[2021-08-09] MEDS: NICOTINE 7 MG/24 HOURS TOPICAL PATCH TD SCH (09:56)
[2021-08-09] MEDS: FAMOTIDINE 20 MG TABLET PO SCH (09:56)
[2021-08-09] MEDS: PRENATAL VITAMINS W/ FOLIC ACID TABLET (FP) PO SCH (09:56)
[2021-08-09] MEDS: THIAMINE HCL 100 MG TABLET (FP) PO SCH (21:36)
[2021-08-09] MEDS: LIDOCAINE PATCH REMOVAL MC SCH (21:36)
[2021-08-09] MEDS: MELATONIN 5 MG TABLETS PO SCH (21:36)
[2021-08-09] MEDS: DOCUSATE SODIUM 100 MG CAPSULE (FP) PO SCH (21:37)
[2021-08-09] MEDS: TAMSULOSIN HCL 0.4 MG CAP PO SCH (21:37)
[2021-08-10] MEDS ORDERED: methaDONE HCL 10 MG TABLET ONE (03:56)
[2021-08-10] MEDS ORDERED: methaDONE HCL 40 MG DISPERSABLE TABLET ONE (03:57)
[2021-08-10] MEDS: hydrOXYzine PAMOATE 25 MG CAPSULE (FP) PO SCH ×6 (06:24→21:38)
[2021-08-10] MEDS: methaDONE 40 MG, methaDONE 20 MG PO SCH (06:24)
[2021-08-10] MEDS: FAMOTIDINE 20 MG TABLET PO SCH (10:07)
[2021-08-10] MEDS: PRENATAL VITAMINS W/ FOLIC ACID TABLET (FP) PO SCH (10:07)
[2021-08-10] MEDS: SULFAMETHOXAZOLE/TRIMETHOPRIM 800MG/160MG D.S. TABLET PO SCH ×2 (10:07→21:36)
[2021-08-10] MEDS: NICOTINE 7 MG/24 HOURS TOPICAL PATCH TD SCH (10:08)
[2021-08-10] MEDS: LIDOCAINE 5% TOPICAL PATCH TP SCH (10:18)
[2021-08-10] MEDS: DOCUSATE SODIUM 100 MG CAPSULE (FP) PO SCH (21:36)
[2021-08-10] MEDS: THIAMINE HCL 100 MG TABLET (FP) PO SCH (21:36)
[2021-08-10] MEDS: MELATONIN 5 MG TABLETS PO SCH (21:38)
[2021-08-10] MEDS: TAMSULOSIN HCL 0.4 MG CAP PO SCH (21:38)
[2021-08-10] MEDS: LIDOCAINE PATCH REMOVAL MC SCH (21:38)
[2021-08-11] MEDS: methaDONE 40 MG, methaDONE 20 MG PO SCH (06:29)
[2021-08-11] MEDS: hydrOXYzine PAMOATE 25 MG CAPSULE (FP) PO SCH ×5 (06:30→21:13)
[2021-08-11] MEDS ORDERED: methaDONE HCL 10 MG TABLET ONE (07:29)
[2021-08-11] MEDS ORDERED: methaDONE HCL 40 MG DISPERSABLE TABLET ONE (07:29)
[2021-08-11] MEDS: SULFAMETHOXAZOLE/TRIMETHOPRIM 800MG/160MG D.S. TABLET PO SCH ×2 (10:03→21:11)
[2021-08-11] MEDS: LIDOCAINE 5% TOPICAL PATCH TP SCH ×2 (10:04→16:40)
[2021-08-11] MEDS: NICOTINE 7 MG/24 HOURS TOPICAL PATCH TD SCH (10:04)
[2021-08-11] MEDS: FAMOTIDINE 20 MG TABLET PO SCH (10:04)
[2021-08-11] MEDS: PRENATAL VITAMINS W/ FOLIC ACID TABLET (FP) PO SCH (10:05)
[2021-08-11] MEDS: METHOCARBAMOL 500 MG TABLET PO PRN (21:11)
[2021-08-11] MEDS: THIAMINE HCL 100 MG TABLET (FP) PO SCH (21:11)
[2021-08-11] MEDS: DOCUSATE SODIUM 100 MG CAPSULE (FP) PO SCH (21:11)
[2021-08-11] MEDS: MELATONIN 5 MG TABLETS PO SCH (21:11)
[2021-08-11] MEDS: TAMSULOSIN HCL 0.4 MG CAP PO SCH (21:11)
[2021-08-11] MEDS: METHYL SALICYLATE/MENTHOL OINT 30 GM TUBE TP SCH (21:12)
[2021-08-11] MEDS: LIDOCAINE PATCH REMOVAL MC SCH (21:12)
[2021-08-12] MEDS ORDERED: methaDONE HCL 10 MG TABLET ONE (03:13)
[2021-08-12] MEDS ORDERED: methaDONE HCL 40 MG DISPERSABLE TABLET ONE (03:13)
[2021-08-12] MEDS: hydrOXYzine PAMOATE 25 MG CAPSULE (FP) PO SCH ×5 (06:27→22:00)
[2021-08-12] MEDS: methaDONE 40 MG, methaDONE 20 MG PO SCH (06:27)
[2021-08-12] MEDS: SULFAMETHOXAZOLE/TRIMETHOPRIM 800MG/160MG D.S. TABLET PO SCH ×2 (09:28→21:37)
[2021-08-12] MEDS: LIDOCAINE 5% TOPICAL PATCH TP SCH (09:28)
[2021-08-12] MEDS: FAMOTIDINE 20 MG TABLET PO SCH (09:29)
[2021-08-12] MEDS: NICOTINE 7 MG/24 HOURS TOPICAL PATCH TD SCH (09:29)
[2021-08-12] MEDS: PRENATAL VITAMINS W/ FOLIC ACID TABLET (FP) PO SCH (09:29)
[2021-08-12 16:09] LABS: SARS-CoV-2 NAA Not Detected (Not Detected)
[2021-08-12] MEDS: DOCUSATE SODIUM 100 MG CAPSULE (FP) PO SCH (21:37)
[2021-08-12] MEDS: LIDOCAINE PATCH REMOVAL MC SCH (21:38)
[2021-08-12] MEDS: THIAMINE HCL 100 MG TABLET (FP) PO SCH (21:38)
[2021-08-12] MEDS: METHYL SALICYLATE/MENTHOL OINT 30 GM TUBE TP SCH (22:00)
[2021-08-12] MEDS: MELATONIN 5 MG TABLETS PO SCH (22:00)
[2021-08-12] MEDS: TAMSULOSIN HCL 0.4 MG CAP PO SCH (22:00)
[2021-08-12] MEDS: METHOCARBAMOL 500 MG TABLET PO PRN (23:18)
[2021-08-13] MEDS ORDERED: methaDONE HCL 10 MG TABLET ONE (03:16)
[2021-08-13] MEDS ORDERED: methaDONE HCL 40 MG DISPERSABLE TABLET ONE (03:16)
[2021-08-13] MEDS: methaDONE 40 MG, methaDONE 20 MG PO SCH (06:34)
[2021-08-13] MEDS: hydrOXYzine PAMOATE 25 MG CAPSULE (FP) PO SCH ×2 (06:34→10:09)
[2021-08-13] MEDS: FAMOTIDINE 20 MG TABLET PO SCH (10:09)
[2021-08-13] MEDS: NICOTINE 7 MG/24 HOURS TOPICAL PATCH TD SCH (10:09)
[2021-08-13] MEDS: LIDOCAINE 5% TOPICAL PATCH TP SCH (10:09)
[2021-08-13] MEDS: SULFAMETHOXAZOLE/TRIMETHOPRIM 800MG/160MG D.S. TABLET PO SCH (10:09)
[2021-08-13] MEDS: PRENATAL VITAMINS W/ FOLIC ACID TABLET (FP) PO SCH (10:09)
[2021-08-13] MEDS: DOCUSATE SODIUM 100 MG CAPSULE (FP) PO SCH (21:21)
[2021-08-13] MEDS: THIAMINE HCL 100 MG TABLET (FP) PO SCH (21:21)
[2021-08-13] MEDS: MELATONIN 5 MG TABLETS PO SCH (21:21)
[2021-08-13] MEDS: TAMSULOSIN HCL 0.4 MG CAP PO SCH (21:21)
[2021-08-13] MEDS: hydrOXYzine PAMOATE 25 MG CAPSULE (FP) PO PRN (21:21)
[2021-08-13] MEDS: LIDOCAINE PATCH REMOVAL MC SCH (21:22)
[2021-08-13] MEDS: METHYL SALICYLATE/MENTHOL OINT 30 GM TUBE TP SCH (21:22)
[2021-08-14] MEDS ORDERED: methaDONE HCL 40 MG DISPERSABLE TABLET ONE (03:18)
[2021-08-14] MEDS ORDERED: methaDONE HCL 10 MG TABLET ONE (03:18)
[2021-08-14] MEDS: methaDONE 40 MG, methaDONE 20 MG PO SCH (06:22)
[2021-08-14] MEDS: hydrOXYzine PAMOATE 25 MG CAPSULE (FP) PO PRN ×2 (06:22→21:12)
[2021-08-14] MEDS: LIDOCAINE 5% TOPICAL PATCH TP SCH (10:49)
[2021-08-14] MEDS: NICOTINE 7 MG/24 HOURS TOPICAL PATCH TD SCH (10:49)
[2021-08-14] MEDS: PRENATAL VITAMINS W/ FOLIC ACID TABLET (FP) PO SCH (10:50)
[2021-08-14] MEDS: FAMOTIDINE 20 MG TABLET PO SCH (10:50)
[2021-08-14] MEDS: MELATONIN 5 MG TABLETS PO SCH (21:12)
[2021-08-14] MEDS: LIDOCAINE PATCH REMOVAL MC SCH (21:12)
[2021-08-14] MEDS: DOCUSATE SODIUM 100 MG CAPSULE (FP) PO SCH (21:12)
[2021-08-14] MEDS: THIAMINE HCL 100 MG TABLET (FP) PO SCH (21:12)
[2021-08-14] MEDS: METHYL SALICYLATE/MENTHOL OINT 30 GM TUBE TP SCH (21:13)
[2021-08-14] MEDS: TAMSULOSIN HCL 0.4 MG CAP PO SCH (21:13)
[2021-08-14] MEDS: METHOCARBAMOL 500 MG TABLET PO PRN (21:14)
[2021-08-15] MEDS ORDERED: methaDONE HCL 40 MG DISPERSABLE TABLET ONE (06:10)
[2021-08-15] MEDS ORDERED: methaDONE HCL 10 MG TABLET ONE (06:10)
[2021-08-15] MEDS: methaDONE 40 MG, methaDONE 20 MG PO SCH (06:27)
[2021-08-15] MEDS: hydrOXYzine PAMOATE 25 MG CAPSULE (FP) PO PRN ×2 (06:28→21:15)
[2021-08-15] MEDS: PRENATAL VITAMINS W/ FOLIC ACID TABLET (FP) PO SCH (09:16)
[2021-08-15] MEDS: LIDOCAINE 5% TOPICAL PATCH TP SCH (09:16)
[2021-08-15] MEDS: FAMOTIDINE 20 MG TABLET PO SCH (09:16)
[2021-08-15] MEDS: NICOTINE 7 MG/24 HOURS TOPICAL PATCH TD SCH (09:16)
[2021-08-15] MEDS: DOCUSATE SODIUM 100 MG CAPSULE (FP) PO SCH (21:15)
[2021-08-15] MEDS: MELATONIN 5 MG TABLETS PO SCH (21:15)
[2021-08-15] MEDS: METHOCARBAMOL 500 MG TABLET PO PRN (21:15)
[2021-08-15] MEDS: THIAMINE HCL 100 MG TABLET (FP) PO SCH (21:15)
[2021-08-15] MEDS: LIDOCAINE PATCH REMOVAL MC SCH (21:17)
[2021-08-15] MEDS: TAMSULOSIN HCL 0.4 MG CAP PO SCH (21:17)
[2021-08-15] MEDS: METHYL SALICYLATE/MENTHOL OINT 30 GM TUBE TP SCH (21:17)
[2021-08-16] MEDS ORDERED: methaDONE HCL 10 MG TABLET ONE (03:17)
[2021-08-16] MEDS ORDERED: methaDONE HCL 40 MG DISPERSABLE TABLET ONE (03:17)
[2021-08-16] MEDS: methaDONE 40 MG, methaDONE 20 MG PO SCH (06:37)
[2021-08-16] MEDS: FAMOTIDINE 20 MG TABLET PO SCH (10:06)
[2021-08-16] MEDS: LIDOCAINE 5% TOPICAL PATCH TP SCH (10:06)
[2021-08-16] MEDS: NICOTINE 7 MG/24 HOURS TOPICAL PATCH TD SCH (10:06)
[2021-08-16] MEDS: PRENATAL VITAMINS W/ FOLIC ACID TABLET (FP) PO SCH (10:06)
[2021-08-16] MEDS: hydrOXYzine PAMOATE 25 MG CAPSULE (FP) PO PRN (20:20)
[2021-08-16] MEDS: THIAMINE HCL 100 MG TABLET (FP) PO SCH (21:30)
[2021-08-16] MEDS: DOCUSATE SODIUM 100 MG CAPSULE (FP) PO SCH (21:30)
[2021-08-16] MEDS: LIDOCAINE PATCH REMOVAL MC SCH (21:30)
[2021-08-16] MEDS: MELATONIN 5 MG TABLETS PO SCH (21:32)
[2021-08-16] MEDS: METHYL SALICYLATE/MENTHOL OINT 30 GM TUBE TP SCH (21:32)
[2021-08-16] MEDS: METHOCARBAMOL 500 MG TABLET PO PRN (21:32)
[2021-08-16] MEDS: TAMSULOSIN HCL 0.4 MG CAP PO SCH (21:32)
[2021-08-17] MEDS ORDERED: methaDONE HCL 10 MG TABLET ONE (03:33)
[2021-08-17] MEDS ORDERED: methaDONE HCL 40 MG DISPERSABLE TABLET ONE (03:33)
[2021-08-17] MEDS: methaDONE 40 MG, methaDONE 20 MG PO SCH (06:56)
[2021-08-17] MEDS: LIDOCAINE 5% TOPICAL PATCH TP SCH (09:35)
[2021-08-17] MEDS: FAMOTIDINE 20 MG TABLET PO SCH (09:35)
[2021-08-17] MEDS: NICOTINE 7 MG/24 HOURS TOPICAL PATCH TD SCH (09:35)
[2021-08-17] MEDS: PRENATAL VITAMINS W/ FOLIC ACID TABLET (FP) PO SCH (09:36)
[2021-08-17] MEDS: hydrOXYzine PAMOATE 25 MG CAPSULE (FP) PO PRN (12:35)
[2021-08-17] MEDS: DOCUSATE SODIUM 100 MG CAPSULE (FP) PO SCH (21:05)
[2021-08-17] MEDS: TAMSULOSIN HCL 0.4 MG CAP PO SCH (21:05)
[2021-08-17] MEDS: THIAMINE HCL 100 MG TABLET (FP) PO SCH (21:05)
[2021-08-17] MEDS: METHYL SALICYLATE/MENTHOL OINT 30 GM TUBE TP SCH (21:06)
[2021-08-17] MEDS: LIDOCAINE PATCH REMOVAL MC SCH (21:06)
[2021-08-17] MEDS: MELATONIN 5 MG TABLETS PO SCH (21:35)
[2021-08-18] MEDS ORDERED: methaDONE HCL 10 MG TABLET ONE (03:28)
[2021-08-18] MEDS ORDERED: methaDONE HCL 40 MG DISPERSABLE TABLET ONE (03:28)
[2021-08-18] MEDS: methaDONE 40 MG, methaDONE 20 MG PO SCH (06:20)
[2021-08-18] MEDS: PRENATAL VITAMINS W/ FOLIC ACID TABLET (FP) PO SCH (09:57)
[2021-08-18] MEDS: FAMOTIDINE 20 MG TABLET PO SCH (09:57)
[2021-08-18] MEDS: NICOTINE 7 MG/24 HOURS TOPICAL PATCH TD SCH (09:57)
[2021-08-18] MEDS: LIDOCAINE 5% TOPICAL PATCH TP SCH (09:57)
[2021-08-18] MEDS: DOCUSATE SODIUM 100 MG CAPSULE (FP) PO SCH (21:11)
[2021-08-18] MEDS: THIAMINE HCL 100 MG TABLET (FP) PO SCH (21:11)
[2021-08-18] MEDS: TAMSULOSIN HCL 0.4 MG CAP PO SCH (21:12)
[2021-08-18] MEDS: MELATONIN 5 MG TABLETS PO SCH (21:12)
[2021-08-18] MEDS: hydrOXYzine PAMOATE 25 MG CAPSULE (FP) PO PRN (21:12)
[2021-08-18] MEDS: METHYL SALICYLATE/MENTHOL OINT 30 GM TUBE TP SCH (21:12)
[2021-08-18] MEDS: LIDOCAINE PATCH REMOVAL MC SCH (21:40)
[2021-08-19] MEDS ORDERED: methaDONE HCL 40 MG DISPERSABLE TABLET ONE (03:18)
[2021-08-19] MEDS ORDERED: methaDONE HCL 10 MG TABLET ONE (03:18)
[2021-08-19] MEDS: methaDONE 40 MG, methaDONE 20 MG PO SCH (06:05)
[2021-08-19] MEDS: FAMOTIDINE 20 MG TABLET PO SCH (10:24)
[2021-08-19] MEDS: LIDOCAINE 5% TOPICAL PATCH TP SCH (10:24)
[2021-08-19] MEDS: PRENATAL VITAMINS W/ FOLIC ACID TABLET (FP) PO SCH (10:24)
[2021-08-19] MEDS: THIAMINE HCL 100 MG TABLET (FP) PO SCH (21:27)
[2021-08-19] MEDS: TAMSULOSIN HCL 0.4 MG CAP PO SCH (21:28)
[2021-08-19] MEDS: DOCUSATE SODIUM 100 MG CAPSULE (FP) PO SCH (21:28)
[2021-08-19] MEDS: hydrOXYzine PAMOATE 25 MG CAPSULE (FP) PO PRN (21:28)
[2021-08-19] MEDS: METHYL SALICYLATE/MENTHOL OINT 30 GM TUBE TP SCH (21:29)
[2021-08-19] MEDS: LIDOCAINE PATCH REMOVAL MC SCH (21:29)
[2021-08-19] MEDS: MELATONIN 5 MG TABLETS PO SCH (21:29)
[2021-08-20] MEDS ORDERED: methaDONE HCL 10 MG TABLET ONE (03:15)
[2021-08-20] MEDS ORDERED: methaDONE HCL 40 MG DISPERSABLE TABLET ONE (03:15)
[2021-08-20] MEDS: methaDONE 40 MG, methaDONE 20 MG PO SCH (06:41)
[2021-08-20 06:42] VITALS: BP 113/78; PULSE 86; TEMP 97.1
[2021-08-20] MEDS: FAMOTIDINE 20 MG TABLET PO SCH (09:12)
[2021-08-20] MEDS: PRENATAL VITAMINS W/ FOLIC ACID TABLET (FP) PO SCH (09:12)
[2021-08-20] MEDS: LIDOCAINE 5% TOPICAL PATCH TP SCH (09:12)
== END 2021-08-20 09:27 | disposition home or self-care (01) | DRG 772 ==
LOC: YASAS 11:36 → Y3E 13:01
PROVIDERS: ADMIT Allergy & Immunology; ATTEND Allergy & Immunology
PROC: HZ42ZZZ Group Counseling for Substance Abuse Treatment, Cognitive-Behavioral (ICD-10-PCS; principal; 2021-08-06)
DX: F10.20 Alcohol dependence, uncomplicated (principal); F11.20 Opioid dependence, uncomplicated; F14.20 Cocaine dependence, uncomplicated; F17.210 Nicotine dependence, cigarettes, uncomplicated; G47.00 Insomnia, unspecified; K21.9 Gastro-esophageal reflux disease without esophagitis; M54.50 Low back pain, unspecified; G89.29 Other chronic pain; N40.0 Benign prostatic hyperplasia without lower urinary tract symptoms; Z88.8 Allergy status to other drugs, medicaments and biological substances
CPT/HCPCS: 36415; 80053; 81003; 85027; 86780; 86803; 87522; C9803-CS; U0003; U0005

== ENCOUNTER 2021-10-20 09:11 | Inpatient (IN) | payer OTHER ==
[2021-10-20] MEDS ORDERED: BENZOCAINE/MENTHOL (CHLORASEPTIC ) LOZENGE MM PRN (10:04)
[2021-10-20] MEDS ORDERED: MAGNESIUM HYDROX 2400MG/30ML ORAL SUSPENSION 30 ML CUP PO PRN (10:04)
[2021-10-20] MEDS ORDERED: MAGNESIUM CITRATE 300 ML BOTTLE PO PRN (10:04)
[2021-10-20] MEDS ORDERED: chlordiazePOXIDE HCL 25 MG CAPSULE PO PRN (10:04)
[2021-10-20] MEDS ORDERED: LOPERAMIDE HCL 2 MG CAPSULE PO PRN (10:04)
[2021-10-20] MEDS ORDERED: IBUPROFEN 400 MG TABLET (FP) PO PRN (10:04)
[2021-10-20] MEDS ORDERED: BISMUTH SUBSALICYLATE 524 MG/30 ML PO PRN (10:04)
[2021-10-20] MEDS ORDERED: IBUPROFEN 600 MG TABLET (FP) PO PRN (10:04)
[2021-10-20] MEDS ORDERED: MAG HYDROX/AL HYDROX/SIMETH 30 ML UNIT-DOSE CUP PO PRN (10:04)
[2021-10-20] MEDS ORDERED: ONDANSETRON *ODT* 4 MG TABLET SL PRN (10:04)
[2021-10-20] MEDS ORDERED: ACETAMINOPHEN 325 MG TABLET (FP) PO PRN ×2 (10:04)
[2021-10-20] MEDS ORDERED: DICYCLOMINE HCL 10 MG CAPSULE PO PRN (10:04)
[2021-10-20 10:46] VITALS: BMI 28.0
[2021-10-20] MEDS ORDERED: methaDONE HCL 10 MG TABLET PO SCH (12:00)
[2021-10-20] MEDS ORDERED: methaDONE 40 MG, methaDONE 30 MG PO ONE (12:00)
[2021-10-20] MEDS ORDERED: methaDONE HCL 40 MG DISPERSABLE TABLET ONE (12:38)
[2021-10-20] MEDS ORDERED: methaDONE HCL 10 MG TABLET ONE (12:38)
[2021-10-20] MEDS: chlordiazePOXIDE HCL 25 MG CAPSULE PO SCH ×3 (12:42→22:42)
[2021-10-20] MEDS: PRENATAL VITAMINS W/ FOLIC ACID TABLET (FP) PO SCH (12:44)
[2021-10-20] MEDS: hydrOXYzine PAMOATE 25 MG CAPSULE (FP) PO SCH ×3 (14:40→22:45)
[2021-10-20 15:16] LABS: HEMATOCRIT 35.8 % (35.4-49); HEMOGLOBIN 11.6 GM/dL (11.7-16.9); MCH 29.8 pg (25.7-33.7); MCHC 32.4 g/dl (32.0-35.9); MEAN CELL VOLUME 92.1 fl (80-96); MEAN PLT VOLUME 8.4 fl (7.5-11.1); PLATELET COUNT 245 10^3/uL (134-434); RBC 3.89 M/mm3 (4.00-5.60); RDW 14.8 % (11.9-15.9); WHITE BLOOD COUNT 6.3 K/mm3 (4.0-10.0)
[2021-10-20 15:47] LABS: CALCIUM 8.8 mg/dL (8.5-10.1)
[2021-10-20 15:48] LABS: ALBUMIN 3.4 g/dl (3.4-5.0); BLOOD UREA NITROGEN 19.5 mg/dL (7-18)
[2021-10-20 15:51] LABS: CREATININE 0.9 mg/dL (0.55-1.3)
[2021-10-20 15:52] LABS: BILIRUBIN,TOTAL 0.1 mg/dL (0.2-1); TOT PROT 7.2 g/dl (6.4-8.2)
[2021-10-20] MEDS: THIAMINE HCL 100 MG TABLET (FP) PO SCH ×2 (22:42→22:46)
[2021-10-20] MEDS: TAMSULOSIN HCL 0.4 MG CAP PO SCH (22:42)
[2021-10-20] MEDS: MELATONIN 5 MG TABLETS PO SCH (22:44)
[2021-10-21] MEDS ORDERED: methaDONE HCL 40 MG DISPERSABLE TABLET ONE (04:12)
[2021-10-21] MEDS ORDERED: methaDONE HCL 10 MG TABLET ONE (04:12)
[2021-10-21] MEDS: hydrOXYzine PAMOATE 25 MG CAPSULE (FP) PO SCH ×5 (05:24→22:43)
[2021-10-21] MEDS: methaDONE 40 MG, methaDONE 30 MG PO SCH (05:24)
[2021-10-21] MEDS: chlordiazePOXIDE HCL 25 MG CAPSULE PO SCH ×4 (05:25→22:43)
[2021-10-21] MEDS: METHOCARBAMOL 500 MG TABLET PO PRN ×2 (10:17→22:44)
[2021-10-21] MEDS: PRENATAL VITAMINS W/ FOLIC ACID TABLET (FP) PO SCH (10:17)
[2021-10-21] MEDS ORDERED: LACTULOSE 20 GM/30 ML UDC (FOR ORAL USE ONLY) PO PRN (11:49)
[2021-10-21] MEDS: DOCUSATE SODIUM 100 MG CAPSULE (FP) PO SCH ×2 (14:37→22:43)
[2021-10-21] MEDS: TAMSULOSIN HCL 0.4 MG CAP PO SCH (22:42)
[2021-10-21] MEDS: MELATONIN 5 MG TABLETS PO SCH (22:43)
[2021-10-21] MEDS: THIAMINE HCL 100 MG TABLET (FP) PO SCH (22:43)
[2021-10-22] MEDS ORDERED: methaDONE HCL 10 MG TABLET ONE (04:04)
[2021-10-22] MEDS ORDERED: methaDONE HCL 40 MG DISPERSABLE TABLET ONE (04:04)
[2021-10-22] MEDS: methaDONE 40 MG, methaDONE 30 MG PO SCH (05:13)
[2021-10-22] MEDS: hydrOXYzine PAMOATE 25 MG CAPSULE (FP) PO SCH ×6 (05:13→22:22)
[2021-10-22] MEDS: DOCUSATE SODIUM 100 MG CAPSULE (FP) PO SCH ×4 (05:13→22:22)
[2021-10-22] MEDS: chlordiazePOXIDE HCL 25 MG CAPSULE PO SCH ×4 (05:13→22:23)
[2021-10-22] MEDS: PRENATAL VITAMINS W/ FOLIC ACID TABLET (FP) PO SCH (10:16)
[2021-10-22] MEDS: METHOCARBAMOL 500 MG TABLET PO PRN (10:17)
[2021-10-22] MEDS: THIAMINE HCL 100 MG TABLET (FP) PO SCH (22:22)
[2021-10-22] MEDS: TAMSULOSIN HCL 0.4 MG CAP PO SCH (22:22)
[2021-10-22] MEDS: MELATONIN 5 MG TABLETS PO SCH (23:51)
[2021-10-23] MEDS ORDERED: chlordiazePOXIDE HCL 10 MG CAPSULE PO PRN
[2021-10-23] MEDS ORDERED: methaDONE HCL 10 MG TABLET ONE (04:27)
[2021-10-23] MEDS ORDERED: methaDONE HCL 40 MG DISPERSABLE TABLET ONE (04:28)
[2021-10-23] MEDS: DOCUSATE SODIUM 100 MG CAPSULE (FP) PO SCH ×3 (05:56→22:39)
[2021-10-23] MEDS: chlordiazePOXIDE HCL 10 MG CAPSULE PO SCH ×4 (05:57→22:39)
[2021-10-23] MEDS: methaDONE 40 MG, methaDONE 30 MG PO SCH (05:57)
[2021-10-23] MEDS: hydrOXYzine PAMOATE 25 MG CAPSULE (FP) PO SCH ×5 (06:03→22:41)
[2021-10-23] MEDS: METHOCARBAMOL 500 MG TABLET PO PRN (10:35)
[2021-10-23] MEDS: PRENATAL VITAMINS W/ FOLIC ACID TABLET (FP) PO SCH (10:38)
[2021-10-23] MEDS: FAMOTIDINE 20 MG TABLET PO SCH (19:33)
[2021-10-23] MEDS: THIAMINE HCL 100 MG TABLET (FP) PO SCH (22:38)
[2021-10-23] MEDS: TAMSULOSIN HCL 0.4 MG CAP PO SCH (22:38)
[2021-10-23] MEDS: MELATONIN 5 MG TABLETS PO SCH (22:41)
[2021-10-24] MEDS ORDERED: methaDONE HCL 40 MG DISPERSABLE TABLET ONE (04:13)
[2021-10-24] MEDS ORDERED: methaDONE HCL 10 MG TABLET ONE (04:13)
[2021-10-24] MEDS ORDERED: chlordiazePOXIDE HCL 10 MG CAPSULE PO SCH (05:00)
[2021-10-24] MEDS: methaDONE 40 MG, methaDONE 30 MG PO SCH (05:16)
[2021-10-24] MEDS: DOCUSATE SODIUM 100 MG CAPSULE (FP) PO SCH (05:16)
[2021-10-24] MEDS: hydrOXYzine PAMOATE 25 MG CAPSULE (FP) PO SCH ×3 (05:17→14:17)
[2021-10-24] MEDS: PRENATAL VITAMINS W/ FOLIC ACID TABLET (FP) PO SCH (10:14)
[2021-10-24] MEDS: FAMOTIDINE 20 MG TABLET PO SCH (10:14)
[2021-10-24 13:26] VITALS: BP 100/62; PULSE 81; TEMP 98
[2021-10-24] MEDS ORDERED: DOCUSATE SODIUM 100 MG CAPSULE (FP) PO SCH (22:00)
[2021-10-25] MEDS ORDERED: chlordiazePOXIDE HCL 10 MG CAPSULE PO ONE (05:00)
== END 2021-10-24 14:24 | disposition other institution (70) | DRG 773 ==
LOC: YASAS 09:11 → Y6N 10:44
PROVIDERS: ADMIT Allergy & Immunology; ATTEND Surgery
PROC: HZ2ZZZZ Detoxification Services for Substance Abuse Treatment (ICD-10-PCS; principal; 2021-10-20)
DX: F10.230 Alcohol dependence with withdrawal, uncomplicated (principal); F11.20 Opioid dependence, uncomplicated; F13.20 Sedative, hypnotic or anxiolytic dependence, uncomplicated; F14.20 Cocaine dependence, uncomplicated; F17.210 Nicotine dependence, cigarettes, uncomplicated; F19.282 Other psychoactive substance dependence with psychoactive substance-induced sleep disorder; F19.24 Other psychoactive substance dependence with psychoactive substance-induced mood disorder; F34.1 Dysthymic disorder; F41.9 Anxiety disorder, unspecified; K21.9 Gastro-esophageal reflux disease without esophagitis; M54.50 Low back pain, unspecified; G89.29 Other chronic pain; N40.0 Benign prostatic hyperplasia without lower urinary tract symptoms; Z28.310 Unvaccinated for COVID-19; Z87.19 Personal history of other diseases of the digestive system; Z86.19 Personal history of other infectious and parasitic diseases; Z88.8 Allergy status to other drugs, medicaments and biological substances
CPT/HCPCS: 36415; 80053; 85027; 86780; 87811; C9803-CS; U0003; U0005

== ENCOUNTER 2021-10-24 14:19 | Inpatient (IN) | payer OTHER ==
[2021-10-24] MEDS ORDERED: LOPERAMIDE HCL 2 MG CAPSULE PO PRN (15:23)
[2021-10-24] MEDS ORDERED: BENZOCAINE/MENTHOL (CHLORASEPTIC ) LOZENGE MM PRN (15:23)
[2021-10-24] MEDS ORDERED: NICOTINE 10 MG CARTRIDGE (INHALER) IH PRN (15:23)
[2021-10-24] MEDS ORDERED: IBUPROFEN 400 MG TABLET (FP) PO PRN (15:23)
[2021-10-24] MEDS ORDERED: ACETAMINOPHEN 325 MG TABLET (FP) PO PRN (15:23)
[2021-10-24] MEDS ORDERED: MAGNESIUM HYDROX 2400MG/30ML ORAL SUSPENSION 30 ML CUP PO PRN (15:23)
[2021-10-24] MEDS ORDERED: guaiFENesin 200 MG/10 ML 10 ML UNIT-DOSE CUPS PO PRN (15:23)
[2021-10-24] MEDS ORDERED: P-EPHED 60MG/TRIPROLIDI 2.5MG TABLET PO PRN (15:23)
[2021-10-24] MEDS ORDERED: MAG HYDROX/AL HYDROX/SIMETH 30 ML UNIT-DOSE CUP PO PRN (15:23)
[2021-10-24] MEDS ORDERED: MAGNESIUM CITRATE 300 ML BOTTLE PO PRN (15:23)
[2021-10-24] MEDS: hydrOXYzine PAMOATE 25 MG CAPSULE (FP) PO PRN (18:56)
[2021-10-24] MEDS: THIAMINE HCL 100 MG TABLET (FP) PO SCH (21:23)
[2021-10-24] MEDS: MELATONIN 5 MG TABLETS PO SCH (21:23)
[2021-10-24] MEDS: DOCUSATE SODIUM 100 MG CAPSULE (FP) PO SCH (21:23)
[2021-10-24] MEDS: TAMSULOSIN HCL 0.4 MG CAP PO SCH (21:23)
[2021-10-25] MEDS ORDERED: methaDONE HCL 10 MG TABLET ONE (09:33)
[2021-10-25] MEDS ORDERED: methaDONE HCL 40 MG DISPERSABLE TABLET ONE (09:34)
[2021-10-25] MEDS ORDERED: methaDONE HCL 40 MG DISPERSABLE TABLET PO SCH (10:00)
[2021-10-25] MEDS ORDERED: methaDONE 40 MG, methaDONE 30 MG PO SCH (10:00)
[2021-10-25] MEDS: FAMOTIDINE 20 MG TABLET PO SCH (11:07)
[2021-10-25] MEDS: PRENATAL VITAMINS W/ FOLIC ACID TABLET (FP) PO SCH (11:07)
[2021-10-25] MEDS: hydrOXYzine PAMOATE 25 MG CAPSULE (FP) PO PRN (11:42)
[2021-10-25] MEDS: NALOXONE (NARCAN) HCL 4 MG/0.1 ML SPRAY NS SCH ×2 (16:43→17:47)
[2021-10-25] MEDS: DOCUSATE SODIUM 100 MG CAPSULE (FP) PO SCH (21:29)
[2021-10-25] MEDS: MELATONIN 5 MG TABLETS PO SCH (21:29)
[2021-10-25] MEDS: TAMSULOSIN HCL 0.4 MG CAP PO SCH (21:29)
[2021-10-25] MEDS: THIAMINE HCL 100 MG TABLET (FP) PO SCH (21:29)
[2021-10-26] MEDS ORDERED: methaDONE HCL 10 MG TABLET ONE (06:15)
[2021-10-26] MEDS ORDERED: methaDONE HCL 40 MG DISPERSABLE TABLET ONE (06:16)
[2021-10-26] MEDS: methaDONE 40 MG, methaDONE 30 MG PO SCH (06:42)
[2021-10-26] MEDS: hydrOXYzine PAMOATE 25 MG CAPSULE (FP) PO PRN (06:44)
[2021-10-26] MEDS: FAMOTIDINE 20 MG TABLET PO SCH (10:30)
[2021-10-26] MEDS: PRENATAL VITAMINS W/ FOLIC ACID TABLET (FP) PO SCH (10:30)
[2021-10-26] MEDS ORDERED: COLLOIDAL OATMEAL 1 BAR EACH TP PRN (13:54)
[2021-10-26] MEDS: MELATONIN 5 MG TABLETS PO SCH (22:17)
[2021-10-26] MEDS: THIAMINE HCL 100 MG TABLET (FP) PO SCH (22:18)
[2021-10-26] MEDS: DOCUSATE SODIUM 100 MG CAPSULE (FP) PO SCH (22:19)
[2021-10-26] MEDS: TAMSULOSIN HCL 0.4 MG CAP PO SCH (22:25)
[2021-10-27] MEDS ORDERED: methaDONE HCL 10 MG TABLET ONE (03:11)
[2021-10-27] MEDS ORDERED: methaDONE HCL 40 MG DISPERSABLE TABLET ONE (03:11)
[2021-10-27] MEDS: methaDONE 40 MG, methaDONE 30 MG PO SCH (06:09)
[2021-10-27] MEDS: hydrOXYzine PAMOATE 25 MG CAPSULE (FP) PO PRN (06:10)
[2021-10-27] MEDS: FAMOTIDINE 20 MG TABLET PO SCH (10:58)
[2021-10-27] MEDS: PRENATAL VITAMINS W/ FOLIC ACID TABLET (FP) PO SCH (10:58)
[2021-10-27] MEDS: THIAMINE HCL 100 MG TABLET (FP) PO SCH (21:24)
[2021-10-27] MEDS: MELATONIN 5 MG TABLETS PO SCH (21:24)
[2021-10-27] MEDS: DOCUSATE SODIUM 100 MG CAPSULE (FP) PO SCH (21:24)
[2021-10-27] MEDS: TAMSULOSIN HCL 0.4 MG CAP PO SCH (21:24)
[2021-10-28] MEDS ORDERED: methaDONE HCL 40 MG DISPERSABLE TABLET ONE (03:05)
[2021-10-28] MEDS ORDERED: methaDONE HCL 10 MG TABLET ONE (03:05)
[2021-10-28] MEDS: methaDONE 40 MG, methaDONE 30 MG PO SCH (06:05)
[2021-10-28] MEDS: hydrOXYzine PAMOATE 25 MG CAPSULE (FP) PO PRN (06:07)
[2021-10-28] MEDS: FAMOTIDINE 20 MG TABLET PO SCH (11:17)
[2021-10-28] MEDS: PRENATAL VITAMINS W/ FOLIC ACID TABLET (FP) PO SCH (11:18)
[2021-10-28] MEDS: TAMSULOSIN HCL 0.4 MG CAP PO SCH (21:32)
[2021-10-28] MEDS: MELATONIN 5 MG TABLETS PO SCH (21:32)
[2021-10-28] MEDS: THIAMINE HCL 100 MG TABLET (FP) PO SCH (21:32)
[2021-10-28] MEDS: DOCUSATE SODIUM 100 MG CAPSULE (FP) PO SCH (21:32)
[2021-10-29] MEDS ORDERED: methaDONE HCL 10 MG TABLET ONE (02:32)
[2021-10-29] MEDS ORDERED: methaDONE HCL 40 MG DISPERSABLE TABLET ONE (02:32)
[2021-10-29] MEDS: methaDONE 40 MG, methaDONE 30 MG PO SCH (06:28)
[2021-10-29] MEDS: PRENATAL VITAMINS W/ FOLIC ACID TABLET (FP) PO SCH (10:51)
[2021-10-29] MEDS: FAMOTIDINE 20 MG TABLET PO SCH (10:53)
[2021-10-29] MEDS: TAMSULOSIN HCL 0.4 MG CAP PO SCH (21:13)
[2021-10-29] MEDS: MELATONIN 5 MG TABLETS PO SCH (21:13)
[2021-10-29] MEDS: DOCUSATE SODIUM 100 MG CAPSULE (FP) PO SCH (21:13)
[2021-10-29] MEDS: THIAMINE HCL 100 MG TABLET (FP) PO SCH (21:13)
[2021-10-30] MEDS ORDERED: methaDONE HCL 10 MG TABLET ONE (06:31)
[2021-10-30] MEDS ORDERED: methaDONE HCL 40 MG DISPERSABLE TABLET ONE (06:31)
[2021-10-30] MEDS: methaDONE 40 MG, methaDONE 30 MG PO SCH (06:33)
[2021-10-30] MEDS: FAMOTIDINE 20 MG TABLET PO SCH (09:52)
[2021-10-30] MEDS: PRENATAL VITAMINS W/ FOLIC ACID TABLET (FP) PO SCH (09:52)
[2021-10-30] MEDS: hydrOXYzine PAMOATE 25 MG CAPSULE (FP) PO PRN (16:09)
[2021-10-30] MEDS: DOCUSATE SODIUM 100 MG CAPSULE (FP) PO SCH (21:22)
[2021-10-30] MEDS: MELATONIN 5 MG TABLETS PO SCH (21:23)
[2021-10-30] MEDS: THIAMINE HCL 100 MG TABLET (FP) PO SCH (21:23)
[2021-10-30] MEDS: TAMSULOSIN HCL 0.4 MG CAP PO SCH (21:23)
[2021-10-31] MEDS: methaDONE 40 MG, methaDONE 30 MG PO SCH (06:27)
[2021-10-31] MEDS ORDERED: methaDONE HCL 40 MG DISPERSABLE TABLET ONE (06:27)
[2021-10-31] MEDS ORDERED: methaDONE HCL 10 MG TABLET ONE (06:27)
[2021-10-31] MEDS: PRENATAL VITAMINS W/ FOLIC ACID TABLET (FP) PO SCH (09:37)
[2021-10-31] MEDS: FAMOTIDINE 20 MG TABLET PO SCH (09:37)
[2021-10-31] MEDS: TAMSULOSIN HCL 0.4 MG CAP PO SCH (21:50)
[2021-10-31] MEDS: DOCUSATE SODIUM 100 MG CAPSULE (FP) PO SCH (21:50)
[2021-10-31] MEDS: THIAMINE HCL 100 MG TABLET (FP) PO SCH (21:51)
[2021-10-31] MEDS: MELATONIN 5 MG TABLETS PO SCH (21:51)
[2021-11-01] MEDS ORDERED: methaDONE HCL 40 MG DISPERSABLE TABLET ONE (03:15)
[2021-11-01] MEDS ORDERED: methaDONE HCL 10 MG TABLET ONE (03:15)
[2021-11-01] MEDS: methaDONE 40 MG, methaDONE 30 MG PO SCH (06:06)
[2021-11-01] MEDS: FAMOTIDINE 20 MG TABLET PO SCH (10:26)
[2021-11-01] MEDS: PRENATAL VITAMINS W/ FOLIC ACID TABLET (FP) PO SCH (10:26)
[2021-11-01] MEDS: DOCUSATE SODIUM 100 MG CAPSULE (FP) PO SCH (21:06)
[2021-11-01] MEDS: THIAMINE HCL 100 MG TABLET (FP) PO SCH (21:06)
[2021-11-01] MEDS: TAMSULOSIN HCL 0.4 MG CAP PO SCH (21:06)
[2021-11-01] MEDS: MELATONIN 5 MG TABLETS PO SCH (21:06)
[2021-11-02] MEDS ORDERED: methaDONE HCL 10 MG TABLET ONE (04:07)
[2021-11-02] MEDS ORDERED: methaDONE HCL 40 MG DISPERSABLE TABLET ONE (04:07)
[2021-11-02] MEDS: methaDONE 40 MG, methaDONE 30 MG PO SCH (06:30)
[2021-11-02] MEDS: FAMOTIDINE 20 MG TABLET PO SCH (10:05)
[2021-11-02] MEDS: PRENATAL VITAMINS W/ FOLIC ACID TABLET (FP) PO SCH (10:05)
[2021-11-02] MEDS: MELATONIN 5 MG TABLETS PO SCH (21:14)
[2021-11-02] MEDS: THIAMINE HCL 100 MG TABLET (FP) PO SCH (21:14)
[2021-11-02] MEDS: TAMSULOSIN HCL 0.4 MG CAP PO SCH (21:14)
[2021-11-02] MEDS: DOCUSATE SODIUM 100 MG CAPSULE (FP) PO SCH (21:14)
[2021-11-03] MEDS ORDERED: methaDONE HCL 40 MG DISPERSABLE TABLET ONE (04:01)
[2021-11-03] MEDS ORDERED: methaDONE HCL 10 MG TABLET ONE (04:01)
[2021-11-03] MEDS: methaDONE 40 MG, methaDONE 30 MG PO SCH (06:26)
[2021-11-03] MEDS: PRENATAL VITAMINS W/ FOLIC ACID TABLET (FP) PO SCH (10:23)
[2021-11-03] MEDS: FAMOTIDINE 20 MG TABLET PO SCH (10:23)
[2021-11-03] MEDS: DOCUSATE SODIUM 100 MG CAPSULE (FP) PO SCH (21:22)
[2021-11-03] MEDS: THIAMINE HCL 100 MG TABLET (FP) PO SCH (21:23)
[2021-11-03] MEDS: TAMSULOSIN HCL 0.4 MG CAP PO SCH (21:23)
[2021-11-03] MEDS: MELATONIN 5 MG TABLETS PO SCH (21:23)
[2021-11-04] MEDS ORDERED: methaDONE HCL 40 MG DISPERSABLE TABLET ONE (06:10)
[2021-11-04] MEDS ORDERED: methaDONE HCL 10 MG TABLET ONE (06:10)
[2021-11-04] MEDS: methaDONE 40 MG, methaDONE 30 MG PO SCH (06:12)
[2021-11-04] MEDS: FAMOTIDINE 20 MG TABLET PO SCH (10:13)
[2021-11-04] MEDS: PRENATAL VITAMINS W/ FOLIC ACID TABLET (FP) PO SCH (10:13)
[2021-11-04] MEDS: hydrOXYzine PAMOATE 25 MG CAPSULE (FP) PO PRN (18:09)
[2021-11-04] MEDS: DOCUSATE SODIUM 100 MG CAPSULE (FP) PO SCH (21:45)
[2021-11-04] MEDS: MELATONIN 5 MG TABLETS PO SCH (21:45)
[2021-11-04] MEDS: TAMSULOSIN HCL 0.4 MG CAP PO SCH (21:45)
[2021-11-04] MEDS: THIAMINE HCL 100 MG TABLET (FP) PO SCH (21:46)
[2021-11-05] MEDS ORDERED: methaDONE HCL 10 MG TABLET ONE (06:01)
[2021-11-05] MEDS: methaDONE 40 MG, methaDONE 30 MG PO SCH (06:02)
[2021-11-05] MEDS ORDERED: methaDONE HCL 40 MG DISPERSABLE TABLET ONE (06:02)
[2021-11-05] MEDS: FAMOTIDINE 20 MG TABLET PO SCH (10:38)
[2021-11-05] MEDS: LIDOCAINE 5% TOPICAL PATCH TP SCH (10:38)
[2021-11-05] MEDS: PRENATAL VITAMINS W/ FOLIC ACID TABLET (FP) PO SCH (10:38)
[2021-11-05] MEDS: TAMSULOSIN HCL 0.4 MG CAP PO SCH (21:27)
[2021-11-05] MEDS: DOCUSATE SODIUM 100 MG CAPSULE (FP) PO SCH (21:27)
[2021-11-05] MEDS: LIDOCAINE PATCH REMOVAL MC SCH (21:28)
[2021-11-05] MEDS: THIAMINE HCL 100 MG TABLET (FP) PO SCH (21:28)
[2021-11-05] MEDS: MELATONIN 5 MG TABLETS PO SCH (21:28)
[2021-11-06] MEDS ORDERED: methaDONE HCL 40 MG DISPERSABLE TABLET ONE (06:05)
[2021-11-06] MEDS ORDERED: methaDONE HCL 10 MG TABLET ONE (06:05)
[2021-11-06] MEDS: methaDONE 40 MG, methaDONE 30 MG PO SCH (06:20)
[2021-11-06] MEDS: FAMOTIDINE 20 MG TABLET PO SCH (09:43)
[2021-11-06] MEDS: PRENATAL VITAMINS W/ FOLIC ACID TABLET (FP) PO SCH (09:43)
[2021-11-06] MEDS: LIDOCAINE 5% TOPICAL PATCH TP SCH (09:43)
[2021-11-06] MEDS: hydrOXYzine PAMOATE 25 MG CAPSULE (FP) PO PRN (19:01)
[2021-11-06] MEDS: DOCUSATE SODIUM 100 MG CAPSULE (FP) PO SCH (21:23)
[2021-11-06] MEDS: NAPROXEN 500 MG TABLET PO PRN (21:23)
[2021-11-06] MEDS: TAMSULOSIN HCL 0.4 MG CAP PO SCH (21:23)
[2021-11-06] MEDS: MELATONIN 5 MG TABLETS PO SCH (21:24)
[2021-11-06] MEDS: LIDOCAINE PATCH REMOVAL MC SCH (21:24)
[2021-11-06] MEDS: THIAMINE HCL 100 MG TABLET (FP) PO SCH (21:24)
[2021-11-07] MEDS ORDERED: methaDONE HCL 10 MG TABLET ONE (06:10)
[2021-11-07] MEDS: methaDONE 40 MG, methaDONE 30 MG PO SCH (06:10)
[2021-11-07] MEDS ORDERED: methaDONE HCL 40 MG DISPERSABLE TABLET ONE (06:10)
[2021-11-07] MEDS: PRENATAL VITAMINS W/ FOLIC ACID TABLET (FP) PO SCH (09:59)
[2021-11-07] MEDS: FAMOTIDINE 20 MG TABLET PO SCH (09:59)
[2021-11-07] MEDS: LIDOCAINE 5% TOPICAL PATCH TP SCH (09:59)
[2021-11-07] MEDS: hydrOXYzine PAMOATE 25 MG CAPSULE (FP) PO PRN (19:06)
[2021-11-07] MEDS: DOCUSATE SODIUM 100 MG CAPSULE (FP) PO SCH (21:23)
[2021-11-07] MEDS: TAMSULOSIN HCL 0.4 MG CAP PO SCH (21:24)
[2021-11-07] MEDS: LIDOCAINE PATCH REMOVAL MC SCH (21:24)
[2021-11-07] MEDS: THIAMINE HCL 100 MG TABLET (FP) PO SCH (21:25)
[2021-11-07] MEDS: MELATONIN 5 MG TABLETS PO SCH (21:25)
[2021-11-08] MEDS ORDERED: methaDONE HCL 10 MG TABLET ONE (03:58)
[2021-11-08] MEDS ORDERED: methaDONE HCL 40 MG DISPERSABLE TABLET ONE (03:59)
[2021-11-08] MEDS: methaDONE 40 MG, methaDONE 30 MG PO SCH (06:27)
[2021-11-08] MEDS: LIDOCAINE 5% TOPICAL PATCH TP SCH (09:57)
[2021-11-08] MEDS: FAMOTIDINE 20 MG TABLET PO SCH (09:58)
[2021-11-08] MEDS: PRENATAL VITAMINS W/ FOLIC ACID TABLET (FP) PO SCH (09:58)
[2021-11-08] MEDS: DOCUSATE SODIUM 100 MG CAPSULE (FP) PO SCH (21:13)
[2021-11-08] MEDS: TAMSULOSIN HCL 0.4 MG CAP PO SCH (21:13)
[2021-11-08] MEDS: LIDOCAINE PATCH REMOVAL MC SCH (21:14)
[2021-11-08] MEDS: THIAMINE HCL 100 MG TABLET (FP) PO SCH (21:14)
[2021-11-08] MEDS: MELATONIN 5 MG TABLETS PO SCH (21:14)
[2021-11-08] MEDS: NAPROXEN 500 MG TABLET PO PRN (21:27)
[2021-11-09] MEDS ORDERED: methaDONE HCL 10 MG TABLET PO SCH (06:00)
[2021-11-09] MEDS ORDERED: methaDONE HCL 10 MG TABLET ONE (06:25)
[2021-11-09] MEDS ORDERED: methaDONE HCL 40 MG DISPERSABLE TABLET ONE (06:25)
[2021-11-09] MEDS: methaDONE 40 MG, methaDONE 30 MG PO SCH (06:26)
[2021-11-09] MEDS: PRENATAL VITAMINS W/ FOLIC ACID TABLET (FP) PO SCH (10:45)
[2021-11-09] MEDS: LIDOCAINE 5% TOPICAL PATCH TP SCH (10:45)
[2021-11-09] MEDS: FAMOTIDINE 20 MG TABLET PO SCH (10:45)
[2021-11-09] MEDS: hydrOXYzine PAMOATE 25 MG CAPSULE (FP) PO PRN (19:16)
[2021-11-09] MEDS: DOCUSATE SODIUM 100 MG CAPSULE (FP) PO SCH (21:02)
[2021-11-09] MEDS: TAMSULOSIN HCL 0.4 MG CAP PO SCH (21:03)
[2021-11-09] MEDS: NAPROXEN 500 MG TABLET PO PRN (21:03)
[2021-11-09] MEDS: LIDOCAINE PATCH REMOVAL MC SCH (21:04)
[2021-11-09] MEDS: MELATONIN 5 MG TABLETS PO SCH (21:04)
[2021-11-09] MEDS: THIAMINE HCL 100 MG TABLET (FP) PO SCH (21:54)
[2021-11-10] MEDS ORDERED: methaDONE HCL 10 MG TABLET ONE (04:49)
[2021-11-10] MEDS ORDERED: methaDONE HCL 40 MG DISPERSABLE TABLET ONE (04:49)
[2021-11-10] MEDS: methaDONE 40 MG, methaDONE 30 MG PO SCH (06:56)
[2021-11-10] MEDS: PRENATAL VITAMINS W/ FOLIC ACID TABLET (FP) PO SCH (10:28)
[2021-11-10] MEDS: LIDOCAINE 5% TOPICAL PATCH TP SCH (10:28)
[2021-11-10] MEDS: FAMOTIDINE 20 MG TABLET PO SCH (10:29)
[2021-11-10] MEDS: TAMSULOSIN HCL 0.4 MG CAP PO SCH (21:15)
[2021-11-10] MEDS: DOCUSATE SODIUM 100 MG CAPSULE (FP) PO SCH (21:16)
[2021-11-10] MEDS: LIDOCAINE PATCH REMOVAL MC SCH (21:16)
[2021-11-10] MEDS: NAPROXEN 500 MG TABLET PO PRN (21:16)
[2021-11-10] MEDS: MELATONIN 5 MG TABLETS PO SCH (21:16)
[2021-11-10] MEDS: THIAMINE HCL 100 MG TABLET (FP) PO SCH (21:16)
[2021-11-11] MEDS ORDERED: methaDONE HCL 40 MG DISPERSABLE TABLET ONE (04:13)
[2021-11-11] MEDS ORDERED: methaDONE HCL 10 MG TABLET ONE (04:13)
[2021-11-11] MEDS: methaDONE 40 MG, methaDONE 30 MG PO SCH (07:06)
[2021-11-11] MEDS: PRENATAL VITAMINS W/ FOLIC ACID TABLET (FP) PO SCH (09:50)
[2021-11-11] MEDS: FAMOTIDINE 20 MG TABLET PO SCH (09:50)
[2021-11-11] MEDS: LIDOCAINE 5% TOPICAL PATCH TP SCH (09:51)
[2021-11-11] MEDS: DOCUSATE SODIUM 100 MG CAPSULE (FP) PO SCH (21:16)
[2021-11-11] MEDS: TAMSULOSIN HCL 0.4 MG CAP PO SCH (21:17)
[2021-11-11] MEDS: MELATONIN 5 MG TABLETS PO SCH (21:17)
[2021-11-11] MEDS: LIDOCAINE PATCH REMOVAL MC SCH (21:17)
[2021-11-11] MEDS: THIAMINE HCL 100 MG TABLET (FP) PO SCH (21:17)
[2021-11-11] MEDS: NAPROXEN 500 MG TABLET PO PRN (21:18)
[2021-11-12] MEDS ORDERED: methaDONE HCL 40 MG DISPERSABLE TABLET ONE (06:37)
[2021-11-12] MEDS ORDERED: methaDONE HCL 10 MG TABLET ONE (06:37)
[2021-11-12] MEDS: methaDONE 40 MG, methaDONE 30 MG PO SCH (06:38)
[2021-11-12] MEDS: FAMOTIDINE 20 MG TABLET PO SCH (10:39)
[2021-11-12] MEDS: LIDOCAINE 5% TOPICAL PATCH TP SCH (10:39)
[2021-11-12] MEDS: PRENATAL VITAMINS W/ FOLIC ACID TABLET (FP) PO SCH (10:39)
[2021-11-12] MEDS: NAPROXEN 500 MG TABLET PO PRN ×2 (10:40→21:23)
[2021-11-12] MEDS ORDERED: MELATONIN 5 MG TABLETS PO PRN (18:43)
[2021-11-12] MEDS: DOCUSATE SODIUM 100 MG CAPSULE (FP) PO SCH (21:22)
[2021-11-12] MEDS: LIDOCAINE PATCH REMOVAL MC SCH (21:23)
[2021-11-12] MEDS: TAMSULOSIN HCL 0.4 MG CAP PO SCH (21:23)
[2021-11-12] MEDS: THIAMINE HCL 100 MG TABLET (FP) PO SCH (21:24)
[2021-11-13] MEDS ORDERED: methaDONE HCL 10 MG TABLET ONE (05:35)
[2021-11-13] MEDS ORDERED: methaDONE HCL 40 MG DISPERSABLE TABLET ONE (05:35)
[2021-11-13] MEDS: methaDONE 40 MG, methaDONE 30 MG PO SCH (06:09)
[2021-11-13] MEDS: PRENATAL VITAMINS W/ FOLIC ACID TABLET (FP) PO SCH (10:21)
[2021-11-13] MEDS: FAMOTIDINE 20 MG TABLET PO SCH (10:21)
[2021-11-13] MEDS: NAPROXEN 500 MG TABLET PO PRN (10:22)
[2021-11-13] MEDS: LIDOCAINE 5% TOPICAL PATCH TP SCH (10:22)
[2021-11-13] MEDS: hydrOXYzine PAMOATE 25 MG CAPSULE (FP) PO PRN (17:51)
[2021-11-13] MEDS: TAMSULOSIN HCL 0.4 MG CAP PO SCH (21:04)
[2021-11-13] MEDS: DOCUSATE SODIUM 100 MG CAPSULE (FP) PO SCH (21:04)
[2021-11-13] MEDS: THIAMINE HCL 100 MG TABLET (FP) PO SCH (21:04)
[2021-11-13] MEDS: LIDOCAINE PATCH REMOVAL MC SCH (21:05)
[2021-11-14] MEDS ORDERED: methaDONE HCL 40 MG DISPERSABLE TABLET ONE (04:21)
[2021-11-14] MEDS ORDERED: methaDONE HCL 10 MG TABLET ONE (04:21)
[2021-11-14] MEDS: methaDONE 40 MG, methaDONE 30 MG PO SCH (06:39)
[2021-11-14] MEDS: FAMOTIDINE 20 MG TABLET PO SCH (10:32)
[2021-11-14] MEDS: PRENATAL VITAMINS W/ FOLIC ACID TABLET (FP) PO SCH (10:32)
[2021-11-14] MEDS: LIDOCAINE 5% TOPICAL PATCH TP SCH (10:33)
[2021-11-14] MEDS: NAPROXEN 500 MG TABLET PO PRN (22:06)
[2021-11-14] MEDS: THIAMINE HCL 100 MG TABLET (FP) PO SCH (22:07)
[2021-11-14] MEDS: LIDOCAINE PATCH REMOVAL MC SCH (22:07)
[2021-11-14] MEDS: TAMSULOSIN HCL 0.4 MG CAP PO SCH (22:08)
[2021-11-14] MEDS: DOCUSATE SODIUM 100 MG CAPSULE (FP) PO SCH (22:08)
[2021-11-15] MEDS ORDERED: methaDONE HCL 10 MG TABLET ONE (03:57)
[2021-11-15] MEDS ORDERED: methaDONE HCL 40 MG DISPERSABLE TABLET ONE (03:58)
[2021-11-15] MEDS: methaDONE 40 MG, methaDONE 30 MG PO SCH (07:00)
[2021-11-15] MEDS: PRENATAL VITAMINS W/ FOLIC ACID TABLET (FP) PO SCH (09:41)
[2021-11-15] MEDS: LIDOCAINE 5% TOPICAL PATCH TP SCH (09:41)
[2021-11-15] MEDS: FAMOTIDINE 20 MG TABLET PO SCH (09:42)
[2021-11-15] MEDS: TAMSULOSIN HCL 0.4 MG CAP PO SCH (21:31)
[2021-11-15] MEDS: DOCUSATE SODIUM 100 MG CAPSULE (FP) PO SCH (21:31)
[2021-11-15] MEDS: LIDOCAINE PATCH REMOVAL MC SCH (21:57)
[2021-11-15] MEDS: THIAMINE HCL 100 MG TABLET (FP) PO SCH (21:58)
[2021-11-16] MEDS ORDERED: methaDONE HCL 40 MG DISPERSABLE TABLET ONE (04:05)
[2021-11-16] MEDS ORDERED: methaDONE HCL 10 MG TABLET ONE (04:05)
[2021-11-16] MEDS ORDERED: methaDONE HCL 10 MG TABLET PO SCH (06:30)
[2021-11-16] MEDS: methaDONE 40 MG, methaDONE 30 MG PO SCH (06:47)
[2021-11-16] MEDS: LIDOCAINE 5% TOPICAL PATCH TP SCH (10:22)
[2021-11-16] MEDS: FAMOTIDINE 20 MG TABLET PO SCH (10:22)
[2021-11-16] MEDS: PRENATAL VITAMINS W/ FOLIC ACID TABLET (FP) PO SCH (10:22)
[2021-11-16] MEDS: NAPROXEN 500 MG TABLET PO PRN (10:23)
[2021-11-16] MEDS: TAMSULOSIN HCL 0.4 MG CAP PO SCH (21:32)
[2021-11-16] MEDS: DOCUSATE SODIUM 100 MG CAPSULE (FP) PO SCH (21:32)
[2021-11-16] MEDS: LIDOCAINE PATCH REMOVAL MC SCH (21:33)
[2021-11-16] MEDS: THIAMINE HCL 100 MG TABLET (FP) PO SCH (21:33)
[2021-11-17] MEDS ORDERED: methaDONE HCL 10 MG TABLET ONE (03:13)
[2021-11-17] MEDS ORDERED: methaDONE HCL 40 MG DISPERSABLE TABLET ONE (03:14)
[2021-11-17] MEDS: methaDONE 40 MG, methaDONE 30 MG PO SCH (06:28)
[2021-11-17 07:02] VITALS: BP 111/62; PULSE 72; TEMP 97.1
== END 2021-11-17 09:17 | disposition home or self-care (01) | DRG 772 ==
LOC: YASAS 14:19 → Y3W 14:25
PROVIDERS: ADMIT Allergy & Immunology; ATTEND Psychiatry & Neurology Pain Medicine
PROC: HZ42ZZZ Group Counseling for Substance Abuse Treatment, Cognitive-Behavioral (ICD-10-PCS; principal; 2021-10-24)
DX: F10.20 Alcohol dependence, uncomplicated (principal); F11.20 Opioid dependence, uncomplicated; F14.20 Cocaine dependence, uncomplicated; F13.20 Sedative, hypnotic or anxiolytic dependence, uncomplicated; F19.282 Other psychoactive substance dependence with psychoactive substance-induced sleep disorder; K21.9 Gastro-esophageal reflux disease without esophagitis; N40.0 Benign prostatic hyperplasia without lower urinary tract symptoms; M19.011 Primary osteoarthritis, right shoulder; Z86.19 Personal history of other infectious and parasitic diseases; Z88.8 Allergy status to other drugs, medicaments and biological substances

== ENCOUNTER 2022-05-19 13:35 | Inpatient (IN) | payer OTHER ==
[2022-05-19 14:53] VITALS: BMI 28.4
[2022-05-19] MEDS ORDERED: MAG HYDROX/AL HYDROX/SIMETH 30 ML UNIT-DOSE CUP PO PRN (15:33)
[2022-05-19] MEDS ORDERED: NALOXONE HCL (KLOXXADO) 8 MG SPRAY NS PRN (15:33)
[2022-05-19] MEDS ORDERED: POLYETHYLENE GLYCOL (HEALTHYLAX) 3350 17 GM PACKET PO PRN (15:33)
[2022-05-19] MEDS ORDERED: chlordiazePOXIDE HCL 25 MG CAPSULE PO PRN (15:33)
[2022-05-19] MEDS ORDERED: MAGNESIUM HYDROX 2400MG/30ML ORAL SUSPENSION 30 ML CUP PO PRN (15:33)
[2022-05-19] MEDS ORDERED: ACETAMINOPHEN 325 MG TABLET (FP) PO PRN ×2 (15:33)
[2022-05-19] MEDS ORDERED: ONDANSETRON *ODT* 4 MG TABLET SL PRN (15:33)
[2022-05-19] MEDS ORDERED: BISMUTH SUBSALICYLATE 524 MG/30 ML PO PRN (15:33)
[2022-05-19] MEDS ORDERED: IBUPROFEN 400 MG TABLET (FP) PO PRN (15:33)
[2022-05-19] MEDS ORDERED: DICYCLOMINE HCL 10 MG CAPSULE PO PRN (15:33)
[2022-05-19] MEDS ORDERED: IBUPROFEN 600 MG TABLET (FP) PO PRN (15:33)
[2022-05-19] MEDS ORDERED: LOPERAMIDE HCL 2 MG CAPSULE PO PRN (15:33)
[2022-05-19] MEDS ORDERED: BENZOCAINE/MENTHOL (CHLORASEPTIC ) LOZENGE MM PRN (15:33)
[2022-05-19] MEDS: PRENATAL VITAMINS W/ FOLIC ACID TABLET (FP) PO SCH (17:42)
[2022-05-19] MEDS: chlordiazePOXIDE HCL 25 MG CAPSULE PO SCH ×2 (17:44→22:37)
[2022-05-19] MEDS: TAMSULOSIN HCL 0.4 MG CAP PO SCH (22:37)
[2022-05-19] MEDS: DOCUSATE SODIUM 100 MG CAPSULE (FP) PO SCH (22:38)
[2022-05-19] MEDS: THIAMINE HCL 100 MG TABLET (FP) PO SCH (22:38)
[2022-05-19] MEDS: MELATONIN 5 MG TABLETS PO SCH (22:38)
[2022-05-20] MEDS: chlordiazePOXIDE HCL 25 MG CAPSULE PO SCH ×4 (06:05→22:43)
[2022-05-20] MEDS ORDERED: methaDONE HCL 10 MG TABLET PO ONE (09:52)
[2022-05-20] MEDS: FAMOTIDINE 20 MG TABLET PO SCH (10:12)
[2022-05-20] MEDS: PRENATAL VITAMINS W/ FOLIC ACID TABLET (FP) PO SCH (10:12)
[2022-05-20] MEDS ORDERED: methaDONE 40 MG, methaDONE 30 MG PO ONE (10:30)
[2022-05-20 12:53] LABS: HEMATOCRIT 37.4 % (35.4-49); MCH 29.3 pg (25.7-33.7); MCHC 32.1 g/dl (32.0-35.9); MEAN CELL VOLUME 91.1 fl (80-96); MEAN PLT VOLUME 7.7 fl (7.5-11.1); PLATELET COUNT 363 10^3/uL (134-434); RBC 4.11 M/mm3 (4.00-5.60); RDW 14.7 % (11.9-15.9); WHITE BLOOD COUNT 5.7 K/mm3 (4.0-10.0)
[2022-05-20 13:26] LABS: CALCIUM 8.8 mg/dL (8.5-10.1)
[2022-05-20 13:27] LABS: ALBUMIN 3.1 g/dl (3.4-5.0); BLOOD UREA NITROGEN 10.2 mg/dL (7-18)
[2022-05-20 13:30] LABS: CREATININE 0.9 mg/dL (0.55-1.3)
[2022-05-20 13:31] LABS: BILIRUBIN,TOTAL 0.2 mg/dL (0.2-1)
[2022-05-20] MEDS: METHOCARBAMOL 500 MG TABLET PO PRN (22:40)
[2022-05-20] MEDS: MELATONIN 5 MG TABLETS PO SCH (22:40)
[2022-05-20] MEDS: THIAMINE HCL 100 MG TABLET (FP) PO SCH (22:41)
[2022-05-20] MEDS: TAMSULOSIN HCL 0.4 MG CAP PO SCH (22:42)
[2022-05-20] MEDS: DOCUSATE SODIUM 100 MG CAPSULE (FP) PO SCH (22:42)
[2022-05-21] MEDS: methaDONE 40 MG, methaDONE 30 MG PO SCH (05:45)
[2022-05-21] MEDS: chlordiazePOXIDE HCL 25 MG CAPSULE PO SCH ×4 (05:46→22:15)
[2022-05-21] MEDS ORDERED: methaDONE HCL 40 MG DISPERSABLE TABLET PO SCH (06:00)
[2022-05-21] MEDS: PRENATAL VITAMINS W/ FOLIC ACID TABLET (FP) PO SCH (10:29)
[2022-05-21] MEDS: FAMOTIDINE 20 MG TABLET PO SCH (10:29)
[2022-05-21] MEDS: METHOCARBAMOL 500 MG TABLET PO PRN (18:10)
[2022-05-21] MEDS: DOCUSATE SODIUM 100 MG CAPSULE (FP) PO SCH (22:14)
[2022-05-21] MEDS: MELATONIN 5 MG TABLETS PO SCH (22:14)
[2022-05-21] MEDS: hydrOXYzine PAMOATE 25 MG CAPSULE (FP) PO PRN (22:15)
[2022-05-21] MEDS: TAMSULOSIN HCL 0.4 MG CAP PO SCH (22:16)
[2022-05-21] MEDS: THIAMINE HCL 100 MG TABLET (FP) PO SCH (22:16)
[2022-05-22] MEDS ORDERED: chlordiazePOXIDE HCL 10 MG CAPSULE PO PRN
[2022-05-22] MEDS: methaDONE 40 MG, methaDONE 30 MG PO SCH (06:08)
[2022-05-22] MEDS: chlordiazePOXIDE HCL 10 MG CAPSULE PO SCH ×4 (06:11→22:28)
[2022-05-22] MEDS: FAMOTIDINE 20 MG TABLET PO SCH (10:24)
[2022-05-22] MEDS: PRENATAL VITAMINS W/ FOLIC ACID TABLET (FP) PO SCH (10:24)
[2022-05-22] MEDS: DOCUSATE SODIUM 100 MG CAPSULE (FP) PO SCH (22:29)
[2022-05-22] MEDS: THIAMINE HCL 100 MG TABLET (FP) PO SCH (22:29)
[2022-05-22] MEDS: MELATONIN 5 MG TABLETS PO SCH (22:29)
[2022-05-22] MEDS: TAMSULOSIN HCL 0.4 MG CAP PO SCH (22:29)
[2022-05-22] MEDS: METHOCARBAMOL 500 MG TABLET PO PRN (22:30)
[2022-05-23] MEDS: methaDONE 40 MG, methaDONE 30 MG PO SCH (05:26)
[2022-05-23] MEDS: chlordiazePOXIDE HCL 10 MG CAPSULE PO SCH ×2 (05:28→17:44)
[2022-05-23] MEDS: METHOCARBAMOL 500 MG TABLET PO PRN (10:21)
[2022-05-23] MEDS: PRENATAL VITAMINS W/ FOLIC ACID TABLET (FP) PO SCH (10:21)
[2022-05-23] MEDS: FAMOTIDINE 20 MG TABLET PO SCH (10:21)
[2022-05-23] MEDS: TAMSULOSIN HCL 0.4 MG CAP PO SCH (22:37)
[2022-05-23] MEDS: MELATONIN 5 MG TABLETS PO SCH (22:37)
[2022-05-23] MEDS: DOCUSATE SODIUM 100 MG CAPSULE (FP) PO SCH (22:37)
[2022-05-23] MEDS: THIAMINE HCL 100 MG TABLET (FP) PO SCH (22:37)
[2022-05-23] MEDS: hydrOXYzine PAMOATE 25 MG CAPSULE (FP) PO PRN (22:39)
[2022-05-24] MEDS ORDERED: chlordiazePOXIDE HCL 10 MG CAPSULE PO ONE (05:00)
[2022-05-24] MEDS: methaDONE 40 MG, methaDONE 30 MG PO SCH (05:20)
[2022-05-24 09:53] VITALS: TEMP 97.8
[2022-05-24] MEDS: FAMOTIDINE 20 MG TABLET PO SCH (10:38)
[2022-05-24] MEDS: PRENATAL VITAMINS W/ FOLIC ACID TABLET (FP) PO SCH (10:38)
[2022-05-24 13:05] VITALS: BP 108/58; PULSE 71; RESP 16
== END 2022-05-24 13:25 | disposition other institution (70) | DRG 773 ==
LOC: YASAS 13:35 → Y3N 16:29
PROVIDERS: ADMIT Allergy & Immunology; ATTEND Surgery
PROC: HZ2ZZZZ Detoxification Services for Substance Abuse Treatment (ICD-10-PCS; principal; 2022-05-19)
DX: F10.230 Alcohol dependence with withdrawal, uncomplicated (principal); F11.20 Opioid dependence, uncomplicated; F14.20 Cocaine dependence, uncomplicated; E88.09 Other disorders of plasma-protein metabolism, not elsewhere classified; G47.00 Insomnia, unspecified; M19.90 Unspecified osteoarthritis, unspecified site; M54.50 Low back pain, unspecified; G89.29 Other chronic pain; Z62.810 Personal history of physical and sexual abuse in childhood; Z28.310 Unvaccinated for COVID-19; Z28.9 Immunization not carried out for unspecified reason; Z88.8 Allergy status to other drugs, medicaments and biological substances
CPT/HCPCS: 36415; 80053; 82140; 85027; 86780; C9803-CS; U0003; U0005

== ENCOUNTER 2022-05-24 14:14 | Inpatient (IN) | payer OTHER ==
[2022-05-24] MEDS ORDERED: MAGNESIUM HYDROX 2400MG/30ML ORAL SUSPENSION 30 ML CUP PO PRN (14:54)
[2022-05-24] MEDS ORDERED: LOPERAMIDE HCL 2 MG CAPSULE PO PRN (14:54)
[2022-05-24] MEDS ORDERED: BENZOCAINE/MENTHOL (CHLORASEPTIC ) LOZENGE MM PRN (14:54)
[2022-05-24] MEDS ORDERED: guaiFENesin 200 MG/10 ML 10 ML UNIT-DOSE CUPS PO PRN (14:54)
[2022-05-24] MEDS ORDERED: MAG HYDROX/AL HYDROX/SIMETH 30 ML UNIT-DOSE CUP PO PRN (14:54)
[2022-05-24] MEDS ORDERED: ACETAMINOPHEN 325 MG TABLET (FP) PO PRN (14:54)
[2022-05-24] MEDS ORDERED: P-EPHED 60MG/TRIPROLIDI 2.5MG TABLET PO PRN (14:54)
[2022-05-24] MEDS ORDERED: IBUPROFEN 400 MG TABLET (FP) PO PRN (14:54)
[2022-05-24] MEDS ORDERED: POLYETHYLENE GLYCOL (HEALTHYLAX) 3350 17 GM PACKET PO PRN (14:54)
[2022-05-24] MEDS ORDERED: NICOTINE POLACRILEX 2 MG GUM BUC PRN (14:54)
[2022-05-24] MEDS: MELATONIN 5 MG TABLETS PO SCH (21:21)
[2022-05-24] MEDS: hydrOXYzine PAMOATE 25 MG CAPSULE (FP) PO PRN (21:21)
[2022-05-24] MEDS: DOCUSATE SODIUM 100 MG CAPSULE (FP) PO SCH (21:21)
[2022-05-24] MEDS: THIAMINE HCL 100 MG TABLET (FP) PO SCH (21:21)
[2022-05-24] MEDS: TAMSULOSIN HCL 0.4 MG CAP PO SCH (21:21)
[2022-05-25] MEDS ORDERED: methaDONE HCL 10 MG TABLET PO SCH (06:00)
[2022-05-25] MEDS: FAMOTIDINE 20 MG TABLET PO SCH (06:24)
[2022-05-25] MEDS: methaDONE 40 MG, methaDONE 30 MG PO SCH (06:24)
[2022-05-25] MEDS: PRENATAL VITAMINS W/ FOLIC ACID TABLET (FP) PO SCH (10:06)
[2022-05-25] MEDS: LIDOCAINE 5% TOPICAL PATCH TP SCH (16:55)
[2022-05-25] MEDS: DOCUSATE SODIUM 100 MG CAPSULE (FP) PO SCH (21:19)
[2022-05-25] MEDS: TAMSULOSIN HCL 0.4 MG CAP PO SCH (21:19)
[2022-05-25] MEDS: CYCLOBENZAPRINE HCL 5 MG TABLET PO PRN (21:19)
[2022-05-25] MEDS: MELATONIN 5 MG TABLETS PO SCH (21:20)
[2022-05-25] MEDS: THIAMINE HCL 100 MG TABLET (FP) PO SCH (21:20)
[2022-05-25] MEDS: LIDOCAINE PATCH REMOVAL MC SCH (21:21)
[2022-05-26] MEDS: methaDONE 40 MG, methaDONE 30 MG PO SCH (06:09)
[2022-05-26] MEDS: FAMOTIDINE 20 MG TABLET PO SCH (06:09)
[2022-05-26] MEDS: LIDOCAINE 5% TOPICAL PATCH TP SCH (09:55)
[2022-05-26] MEDS: PRENATAL VITAMINS W/ FOLIC ACID TABLET (FP) PO SCH (09:55)
[2022-05-26] MEDS: CYCLOBENZAPRINE HCL 5 MG TABLET PO PRN ×2 (09:56→21:33)
[2022-05-26] MEDS: DOCUSATE SODIUM 100 MG CAPSULE (FP) PO SCH (21:33)
[2022-05-26] MEDS: TAMSULOSIN HCL 0.4 MG CAP PO SCH (21:33)
[2022-05-26] MEDS: LIDOCAINE PATCH REMOVAL MC SCH (21:34)
[2022-05-26] MEDS: THIAMINE HCL 100 MG TABLET (FP) PO SCH (21:35)
[2022-05-26] MEDS: MELATONIN 5 MG TABLETS PO SCH (21:35)
[2022-05-27] MEDS: methaDONE 40 MG, methaDONE 30 MG PO SCH (06:40)
[2022-05-27] MEDS: FAMOTIDINE 20 MG TABLET PO SCH (06:40)
[2022-05-27] MEDS: PRENATAL VITAMINS W/ FOLIC ACID TABLET (FP) PO SCH (09:47)
[2022-05-27] MEDS: LIDOCAINE 5% TOPICAL PATCH TP SCH (09:47)
[2022-05-27] MEDS: DOCUSATE SODIUM 100 MG CAPSULE (FP) PO SCH (21:23)
[2022-05-27] MEDS: THIAMINE HCL 100 MG TABLET (FP) PO SCH (21:24)
[2022-05-27] MEDS: TAMSULOSIN HCL 0.4 MG CAP PO SCH (21:24)
[2022-05-27] MEDS: LIDOCAINE PATCH REMOVAL MC SCH (21:24)
[2022-05-27] MEDS: MELATONIN 5 MG TABLETS PO SCH (21:24)
[2022-05-28] MEDS: FAMOTIDINE 20 MG TABLET PO SCH (06:34)
[2022-05-28] MEDS: methaDONE 40 MG, methaDONE 30 MG PO SCH (06:35)
[2022-05-28] MEDS ORDERED: COLLOIDAL OATMEAL 1 BAR EACH TP PRN (09:34)
[2022-05-28] MEDS: PRENATAL VITAMINS W/ FOLIC ACID TABLET (FP) PO SCH (09:34)
[2022-05-28] MEDS: LIDOCAINE 5% TOPICAL PATCH TP SCH (09:34)
[2022-05-28] MEDS ORDERED: CALAMINE 8% TOPICAL LOTION 177 ML BOTTLE TP PRN (09:43)
[2022-05-28] MEDS: hydrOXYzine PAMOATE 25 MG CAPSULE (FP) PO PRN (10:42)
[2022-05-28] MEDS: MELATONIN 5 MG TABLETS PO SCH (21:17)
[2022-05-28] MEDS: TAMSULOSIN HCL 0.4 MG CAP PO SCH (21:17)
[2022-05-28] MEDS: THIAMINE HCL 100 MG TABLET (FP) PO SCH (21:17)
[2022-05-28] MEDS: DOCUSATE SODIUM 100 MG CAPSULE (FP) PO SCH (21:17)
[2022-05-28] MEDS: LIDOCAINE PATCH REMOVAL MC SCH (21:17)
[2022-05-28] MEDS: CYCLOBENZAPRINE HCL 5 MG TABLET PO PRN (21:18)
[2022-05-29] MEDS: FAMOTIDINE 20 MG TABLET PO SCH (06:35)
[2022-05-29] MEDS: methaDONE 40 MG, methaDONE 30 MG PO SCH (06:35)
[2022-05-29] MEDS: PRENATAL VITAMINS W/ FOLIC ACID TABLET (FP) PO SCH (09:41)
[2022-05-29] MEDS: LIDOCAINE 5% TOPICAL PATCH TP SCH (09:42)
[2022-05-29] MEDS: CYCLOBENZAPRINE HCL 5 MG TABLET PO PRN (21:31)
[2022-05-29] MEDS: DOCUSATE SODIUM 100 MG CAPSULE (FP) PO SCH (21:32)
[2022-05-29] MEDS: THIAMINE HCL 100 MG TABLET (FP) PO SCH (21:32)
[2022-05-29] MEDS: MELATONIN 5 MG TABLETS PO SCH (21:32)
[2022-05-29] MEDS: TAMSULOSIN HCL 0.4 MG CAP PO SCH (21:32)
[2022-05-29] MEDS: LIDOCAINE PATCH REMOVAL MC SCH (21:32)
[2022-05-30] MEDS: methaDONE 40 MG, methaDONE 30 MG PO SCH (06:21)
[2022-05-30] MEDS: FAMOTIDINE 20 MG TABLET PO SCH (06:21)
[2022-05-30] MEDS: LIDOCAINE 5% TOPICAL PATCH TP SCH (09:38)
[2022-05-30] MEDS: PRENATAL VITAMINS W/ FOLIC ACID TABLET (FP) PO SCH (09:38)
[2022-05-30] MEDS: TAMSULOSIN HCL 0.4 MG CAP PO SCH (21:14)
[2022-05-30] MEDS: DOCUSATE SODIUM 100 MG CAPSULE (FP) PO SCH (21:14)
[2022-05-30] MEDS: THIAMINE HCL 100 MG TABLET (FP) PO SCH (21:15)
[2022-05-30] MEDS: LIDOCAINE PATCH REMOVAL MC SCH (21:15)
[2022-05-30] MEDS: MELATONIN 5 MG TABLETS PO SCH (21:15)
[2022-05-30 21:53] VITALS: RESP 18
[2022-05-31] MEDS: FAMOTIDINE 20 MG TABLET PO SCH (06:37)
[2022-05-31] MEDS: methaDONE 40 MG, methaDONE 30 MG PO SCH (06:38)
[2022-05-31] MEDS: PRENATAL VITAMINS W/ FOLIC ACID TABLET (FP) PO SCH (09:47)
[2022-05-31] MEDS: LIDOCAINE 5% TOPICAL PATCH TP SCH (09:48)
[2022-05-31] MEDS: TAMSULOSIN HCL 0.4 MG CAP PO SCH (21:29)
[2022-05-31] MEDS: CYCLOBENZAPRINE HCL 5 MG TABLET PO PRN (21:29)
[2022-05-31] MEDS: DOCUSATE SODIUM 100 MG CAPSULE (FP) PO SCH (21:29)
[2022-05-31] MEDS: MELATONIN 5 MG TABLETS PO SCH (21:30)
[2022-05-31] MEDS: LIDOCAINE PATCH REMOVAL MC SCH (21:30)
[2022-05-31] MEDS: THIAMINE HCL 100 MG TABLET (FP) PO SCH (21:30)
[2022-06-01] MEDS: methaDONE 40 MG, methaDONE 30 MG PO SCH (06:29)
[2022-06-01] MEDS: FAMOTIDINE 20 MG TABLET PO SCH (06:29)
[2022-06-01] MEDS: LIDOCAINE 5% TOPICAL PATCH TP SCH (09:37)
[2022-06-01] MEDS: PRENATAL VITAMINS W/ FOLIC ACID TABLET (FP) PO SCH (09:38)
[2022-06-01] MEDS: TAMSULOSIN HCL 0.4 MG CAP PO SCH (21:09)
[2022-06-01] MEDS: DOCUSATE SODIUM 100 MG CAPSULE (FP) PO SCH (21:09)
[2022-06-01] MEDS: CYCLOBENZAPRINE HCL 5 MG TABLET PO PRN (21:09)
[2022-06-01] MEDS: LIDOCAINE PATCH REMOVAL MC SCH (21:09)
[2022-06-01] MEDS: MELATONIN 5 MG TABLETS PO SCH (21:09)
[2022-06-01] MEDS: THIAMINE HCL 100 MG TABLET (FP) PO SCH (21:10)
[2022-06-02] MEDS: FAMOTIDINE 20 MG TABLET PO SCH (06:23)
[2022-06-02] MEDS: methaDONE 40 MG, methaDONE 30 MG PO SCH (06:23)
[2022-06-02] MEDS: LIDOCAINE 5% TOPICAL PATCH TP SCH (09:33)
[2022-06-02] MEDS: PRENATAL VITAMINS W/ FOLIC ACID TABLET (FP) PO SCH (09:33)
[2022-06-02] MEDS: LIDOCAINE PATCH REMOVAL MC SCH (21:17)
[2022-06-02] MEDS: THIAMINE HCL 100 MG TABLET (FP) PO SCH (21:17)
[2022-06-02] MEDS: CYCLOBENZAPRINE HCL 5 MG TABLET PO PRN (21:17)
[2022-06-02] MEDS: TAMSULOSIN HCL 0.4 MG CAP PO SCH (21:17)
[2022-06-02] MEDS: MELATONIN 5 MG TABLETS PO SCH (21:17)
[2022-06-02] MEDS: DOCUSATE SODIUM 100 MG CAPSULE (FP) PO SCH (21:17)
[2022-06-03] MEDS: FAMOTIDINE 20 MG TABLET PO SCH (05:59)
[2022-06-03] MEDS: methaDONE 40 MG, methaDONE 30 MG PO SCH (05:59)
[2022-06-03] MEDS: LIDOCAINE 5% TOPICAL PATCH TP SCH (09:35)
[2022-06-03] MEDS: PRENATAL VITAMINS W/ FOLIC ACID TABLET (FP) PO SCH (09:35)
[2022-06-03] MEDS: TAMSULOSIN HCL 0.4 MG CAP PO SCH (21:29)
[2022-06-03] MEDS: CYCLOBENZAPRINE HCL 5 MG TABLET PO PRN (21:29)
[2022-06-03] MEDS: DOCUSATE SODIUM 100 MG CAPSULE (FP) PO SCH (21:29)
[2022-06-03] MEDS: MELATONIN 5 MG TABLETS PO SCH (21:30)
[2022-06-03] MEDS: THIAMINE HCL 100 MG TABLET (FP) PO SCH (21:30)
[2022-06-03] MEDS: LIDOCAINE PATCH REMOVAL MC SCH (21:31)
[2022-06-04] MEDS: methaDONE 40 MG, methaDONE 30 MG PO SCH (06:13)
[2022-06-04] MEDS: FAMOTIDINE 20 MG TABLET PO SCH (06:13)
[2022-06-04] MEDS: LIDOCAINE 5% TOPICAL PATCH TP SCH (09:50)
[2022-06-04] MEDS: PRENATAL VITAMINS W/ FOLIC ACID TABLET (FP) PO SCH (09:50)
[2022-06-04] MEDS: CYCLOBENZAPRINE HCL 5 MG TABLET PO PRN (21:10)
[2022-06-04] MEDS: TAMSULOSIN HCL 0.4 MG CAP PO SCH (21:10)
[2022-06-04] MEDS: DOCUSATE SODIUM 100 MG CAPSULE (FP) PO SCH (21:10)
[2022-06-04] MEDS: LIDOCAINE PATCH REMOVAL MC SCH (21:11)
[2022-06-04] MEDS: MELATONIN 5 MG TABLETS PO SCH (21:11)
[2022-06-04] MEDS: THIAMINE HCL 100 MG TABLET (FP) PO SCH (21:11)
[2022-06-05] MEDS: FAMOTIDINE 20 MG TABLET PO SCH (06:06)
[2022-06-05] MEDS: methaDONE 40 MG, methaDONE 30 MG PO SCH (06:06)
[2022-06-05 06:45] VITALS: BP 127/70; PULSE 81; TEMP 97.7
[2022-06-05] MEDS: LIDOCAINE 5% TOPICAL PATCH TP SCH (09:08)
[2022-06-05] MEDS: PRENATAL VITAMINS W/ FOLIC ACID TABLET (FP) PO SCH (09:08)
== END 2022-06-05 09:36 | disposition home or self-care (01) | DRG 772 ==
LOC: YASAS 14:14 → Y3W 14:16
PROVIDERS: ADMIT Allergy & Immunology; ATTEND Psychiatry & Neurology Pain Medicine
PROC: HZ42ZZZ Group Counseling for Substance Abuse Treatment, Cognitive-Behavioral (ICD-10-PCS; principal; 2022-05-24)
DX: F11.20 Opioid dependence, uncomplicated (principal); F10.20 Alcohol dependence, uncomplicated; F14.20 Cocaine dependence, uncomplicated; F19.24 Other psychoactive substance dependence with psychoactive substance-induced mood disorder; F19.282 Other psychoactive substance dependence with psychoactive substance-induced sleep disorder; F41.9 Anxiety disorder, unspecified; G47.00 Insomnia, unspecified; K21.9 Gastro-esophageal reflux disease without esophagitis; M54.50 Low back pain, unspecified; G89.29 Other chronic pain; N40.0 Benign prostatic hyperplasia without lower urinary tract symptoms; B18.2 Chronic viral hepatitis C; Z59.02 Unsheltered homelessness; Z88.8 Allergy status to other drugs, medicaments and biological substances
CPT/HCPCS: 36415; 73030-TC-RT-FY; 82962; 86803; 87522

== ENCOUNTER 2022-10-14 13:43 | Inpatient (IN) | payer OTHER ==
[2022-10-14 14:00] VITALS: BMI 29.0
[2022-10-14] MEDS ORDERED: BENZOCAINE/MENTHOL (CHLORASEPTIC ) LOZENGE MM PRN (17:23)
[2022-10-14] MEDS ORDERED: POLYETHYLENE GLYCOL (HEALTHYLAX) 3350 17 GM PACKET PO PRN (17:23)
[2022-10-14] MEDS ORDERED: guaiFENesin 600 MG TABLET.ER (FP) PO PRN (17:23)
[2022-10-14] MEDS ORDERED: BISMUTH SUBSALICYLATE 524 MG/30 ML PO PRN (17:23)
[2022-10-14] MEDS ORDERED: BENZONATATE 200 MG CAPSULE PO PRN (17:23)
[2022-10-14] MEDS ORDERED: DICYCLOMINE HCL 10 MG CAPSULE PO PRN (17:23)
[2022-10-14] MEDS ORDERED: NALOXONE HCL 0.4 MG/ML VIAL IM PRN (17:23)
[2022-10-14] MEDS ORDERED: LOPERAMIDE HCL 2 MG CAPSULE PO PRN (17:23)
[2022-10-14] MEDS ORDERED: NALOXONE HCL (KLOXXADO) 8 MG SPRAY NS PRN (17:23)
[2022-10-14] MEDS ORDERED: ONDANSETRON *ODT* 4 MG TABLET SL PRN (17:23)
[2022-10-14] MEDS ORDERED: ACETAMINOPHEN 325 MG TABLET (FP) PO PRN (17:23)
[2022-10-14] MEDS ORDERED: MAGNESIUM HYDROX 2400MG/30ML ORAL SUSPENSION 30 ML CUP PO PRN (17:23)
[2022-10-14] MEDS ORDERED: IBUPROFEN 600 MG TABLET (FP) PO PRN (17:23)
[2022-10-14] MEDS ORDERED: chlordiazePOXIDE HCL 25 MG CAPSULE PO PRN (17:25)
[2022-10-14] MEDS: DOCUSATE SODIUM 100 MG CAPSULE (FP) PO SCH (22:34)
[2022-10-14] MEDS: TAMSULOSIN HCL 0.4 MG CAP PO SCH (22:34)
[2022-10-14] MEDS: chlordiazePOXIDE HCL 25 MG CAPSULE PO SCH (22:34)
[2022-10-14] MEDS: THIAMINE HCL 100 MG TABLET (FP) PO SCH (22:37)
[2022-10-15] MEDS: MAG HYDROX/AL HYDROX/SIMETH 30 ML UNIT-DOSE CUP PO PRN (04:37)
[2022-10-15] MEDS: chlordiazePOXIDE HCL 25 MG CAPSULE PO SCH ×4 (05:41→22:40)
[2022-10-15] MEDS: FAMOTIDINE 20 MG TABLET PO SCH (06:59)
[2022-10-15] MEDS ORDERED: methaDONE HCL 10 MG TABLET PO ONE (09:57)
[2022-10-15] MEDS ORDERED: methaDONE 40 MG, methaDONE 10 MG PO ONE (10:00)
[2022-10-15] MEDS: PRENATAL VITAMINS W/ FOLIC ACID TABLET (FP) PO SCH (10:25)
[2022-10-15] MEDS: CYCLOBENZAPRINE HCL 5 MG TABLET PO PRN ×2 (11:18→22:41)
[2022-10-15] MEDS: amLODIPine BESYLATE 5 MG TABLET (FP) PO SCH ×2 (11:36→11:39)
[2022-10-15 11:54] LABS: HEMATOCRIT 41.3 % (35.4-49); HEMOGLOBIN 13.1 GM/dL (11.7-16.9); MCH 28.8 pg (25.7-33.7); MCHC 31.8 g/dl (32.0-35.9); MEAN CELL VOLUME 90.5 fl (80-96); MEAN PLT VOLUME 8.8 fl (7.5-11.1); PLATELET COUNT 230 10^3/uL (134-434); RBC 4.56 M/mm3 (4.00-5.60); RDW 15.8 % (11.9-15.9); WHITE BLOOD COUNT 6.5 K/mm3 (4.0-10.0)
[2022-10-15 12:21] LABS: ALBUMIN 3.4 g/dl (3.4-5.0); BLOOD UREA NITROGEN 11.4 mg/dL (7-18)
[2022-10-15 12:24] LABS: CREATININE 0.8 mg/dL (0.55-1.3)
[2022-10-15 12:26] LABS: BILIRUBIN,TOTAL 0.5 mg/dL (0.2-1); TOT PROT 7.2 g/dl (6.4-8.2)
[2022-10-15] MEDS: DOCUSATE SODIUM 100 MG CAPSULE (FP) PO SCH (22:39)
[2022-10-15] MEDS: TAMSULOSIN HCL 0.4 MG CAP PO SCH (22:39)
[2022-10-15] MEDS: THIAMINE HCL 100 MG TABLET (FP) PO SCH (22:41)
[2022-10-15] MEDS: MELATONIN 5 MG TABLETS PO PRN (22:43)
[2022-10-16] MEDS: MAG HYDROX/AL HYDROX/SIMETH 30 ML UNIT-DOSE CUP PO PRN (00:32)
[2022-10-16] MEDS: methaDONE 40 MG, methaDONE 10 MG PO SCH (05:40)
[2022-10-16] MEDS: chlordiazePOXIDE HCL 10 MG CAPSULE PO SCH ×4 (05:41→22:46)
[2022-10-16] MEDS ORDERED: methaDONE HCL 10 MG TABLET PO SCH (06:00)
[2022-10-16] MEDS: FAMOTIDINE 20 MG TABLET PO SCH (06:11)
[2022-10-16] MEDS: PRENATAL VITAMINS W/ FOLIC ACID TABLET (FP) PO SCH (10:48)
[2022-10-16] MEDS: CYCLOBENZAPRINE HCL 5 MG TABLET PO PRN ×2 (10:48→17:48)
[2022-10-16] MEDS: amLODIPine BESYLATE 5 MG TABLET (FP) PO SCH (10:48)
[2022-10-16] MEDS: IBUPROFEN 400 MG TABLET (FP) PO PRN (17:49)
[2022-10-16] MEDS: DOCUSATE SODIUM 100 MG CAPSULE (FP) PO SCH (22:45)
[2022-10-16] MEDS: MELATONIN 5 MG TABLETS PO PRN (22:46)
[2022-10-16] MEDS: THIAMINE HCL 100 MG TABLET (FP) PO SCH (22:46)
[2022-10-16] MEDS: TAMSULOSIN HCL 0.4 MG CAP PO SCH (22:46)
[2022-10-17] MEDS ORDERED: chlordiazePOXIDE HCL 10 MG CAPSULE PO PRN
[2022-10-17] MEDS: methaDONE 40 MG, methaDONE 10 MG PO SCH (05:20)
[2022-10-17] MEDS: chlordiazePOXIDE HCL 10 MG CAPSULE PO SCH ×2 (05:21→17:47)
[2022-10-17] MEDS: FAMOTIDINE 20 MG TABLET PO SCH (06:35)
[2022-10-17] MEDS: PRENATAL VITAMINS W/ FOLIC ACID TABLET (FP) PO SCH (10:13)
[2022-10-17] MEDS: amLODIPine BESYLATE 5 MG TABLET (FP) PO SCH (10:17)
[2022-10-17] MEDS: CYCLOBENZAPRINE HCL 5 MG TABLET PO PRN (17:49)
[2022-10-17] MEDS: IBUPROFEN 400 MG TABLET (FP) PO PRN (17:49)
[2022-10-17 20:30] VITALS: TEMP 97.7
[2022-10-17] MEDS: DOCUSATE SODIUM 100 MG CAPSULE (FP) PO SCH (22:06)
[2022-10-17] MEDS: THIAMINE HCL 100 MG TABLET (FP) PO SCH (22:06)
[2022-10-17] MEDS: MELATONIN 5 MG TABLETS PO PRN (22:06)
[2022-10-17] MEDS: TAMSULOSIN HCL 0.4 MG CAP PO SCH (22:06)
[2022-10-18] MEDS ORDERED: chlordiazePOXIDE HCL 10 MG CAPSULE PO ONE (05:00)
[2022-10-18] MEDS: methaDONE 40 MG, methaDONE 10 MG PO SCH (05:33)
[2022-10-18 06:40] VITALS: BP 118/69; PULSE 93; RESP 17
[2022-10-18] MEDS: FAMOTIDINE 20 MG TABLET PO SCH (06:51)
[2022-10-18] MEDS: amLODIPine BESYLATE 5 MG TABLET (FP) PO SCH (10:08)
[2022-10-18] MEDS: PRENATAL VITAMINS W/ FOLIC ACID TABLET (FP) PO SCH (10:08)
== END 2022-10-18 11:20 | disposition home or self-care (01) | DRG 773 ==
LOC: YASAS 13:43 → Y6N 18:37
PROVIDERS: ADMIT Allergy & Immunology; ATTEND Surgery
PROC: HZ2ZZZZ Detoxification Services for Substance Abuse Treatment (ICD-10-PCS; principal; 2022-10-14)
DX: F10.230 Alcohol dependence with withdrawal, uncomplicated (principal); F11.20 Opioid dependence, uncomplicated; F10.280 Alcohol dependence with alcohol-induced anxiety disorder; F19.282 Other psychoactive substance dependence with psychoactive substance-induced sleep disorder; F41.9 Anxiety disorder, unspecified; F43.10 Post-traumatic stress disorder, unspecified; I10 Essential (primary) hypertension; K21.9 Gastro-esophageal reflux disease without esophagitis; K59.01 Slow transit constipation; B18.2 Chronic viral hepatitis C; N40.0 Benign prostatic hyperplasia without lower urinary tract symptoms; M54.50 Low back pain, unspecified; G89.29 Other chronic pain; R05.9 Cough, unspecified; Z62.810 Personal history of physical and sexual abuse in childhood; Z88.8 Allergy status to other drugs, medicaments and biological substances; Z28.310 Unvaccinated for COVID-19; Z28.9 Immunization not carried out for unspecified reason
CPT/HCPCS: 36415; 80053; 85027; 86780; 87635; 87811; 93005; 93010